=== PATIENT | female | born 1970 | race Caucasian/White ===

== ENCOUNTER 2016-07-11 18:05 | Emergency (ER) | payer BC ==
[2016-07-11 18:26] VITALS: BP 155/90
--- NOTE | 2016-07-11 18:44 | ED ---
Throat Pain/Nasal Congestion - HPI Summary HPI Summary: 46 F w/ PMH of HTN presents with left ear pain since yesterday. She denies any fever, chills, sinus pressure, or teeth pain. She denies ever getting an ear infection before. She denies recently swimming. She denies any dizziness or any change in hearing. - History of Current Complaint Chief Complaint: EDEarPain Time Seen by Provider: 07/11/16 18:32 - Allergies/Home Medications Allergies/Adverse Reactions: Allergies Allergy/AdvReac Type Severity Reaction Status Date / Time Amitriptyline Allergy Severe SOB, CHEST Verified 04/30/16 09:52 TIGHTNESS Codeine Allergy Unknown Hives/Diff. Verified 04/30/16 11:33 Breathing/I tching Clindamycin Allergy Hives/Diff. Verified 04/30/16 09:52 Breathing/I tching Erythromycin Allergy Hives/Diff. Verified 04/30/16 09:52 Breathing/I tching PMH/Surg Hx/FS Hx/Imm Hx Endocrine/Hematology History: Denies: Hx Diabetes, Hx Thyroid Disease Cardiovascular History: Reports: Hx Hypercholesterolemia, Hx Hypertension Respiratory History: Reports: Hx Sleep Apnea - current CPAP user Denies: Hx Asthma, Hx Chronic Obstructive Pulmonary Disease (COPD) GI History: Reports: Other GI Disorders - Obesity Denies: Hx Ulcer Sensory History: Reports: Other Sensory Impairments - Psoriasis Opthamlomology History: Reports: Other Sensory Impairments - Psoriasis Neurological History: Reports: Other Neuro Impairments/Disorders - Sleep disorder Psychiatric History: Reports: Hx Depression - Surgical History Surgery Procedure, Year, and Place: Cholecystectomy, PARTIAL HYSTERECTOMY Infectious Disease History: No Infectious Disease History: Denies: Hx Clostridium Difficile, Hx Hepatitis, Hx Human Immunodeficiency Virus (HIV), Hx of Known/Suspected MRSA, Hx Shingles, Hx Tuberculosis, Hx Known/ Suspected VRE, Hx Known/Suspected VRSA, History Other Infectious Disease, Traveled Outside the [place] in Last 30 Days - Family History Known Family History: Positive: None, Unknown - Social History Alcohol Use: None Substance Use Type: Reports: None Smoking Status (MU): Never Smoked Tobacco Review of Systems Negative: Fever Positive: Ear Ache - left ear. Negative: Sore Throat, Nasal Discharge Negative: Chest Pain Negative: Shortness Of Breath All Other Systems Reviewed And Are Negative: Yes Physical Exam Triage Information Reviewed: Yes Vital Signs On Initial Exam: Initial Vitals Temp Pulse Resp BP Pulse Ox 97.7 F 87 18 155/90 99 07/11/16 18:22 07/11/16 18:22 07/11/16 18:22 07/11/16 18:22 07/11/16 18:22 Vital Signs Reviewed: Yes Appearance: Positive: Well-Appearing Skin: Positive: Warm, Dry Head/Face: Positive: Normal Head/Face Inspection Eyes: Positive: Normal, EOMI, BAUTISTA, Conjunctiva Clear ENT: Positive: Pharynx normal, TMs normal, Other - edematous canal with tenderness on palpation of tragus Neck: Positive: Supple, Nontender, No Lymphadenopathy Respiratory/Lung Sounds: Positive: Clear to Auscultation, Breath Sounds Present Cardiovascular: Positive: Normal, RRR Diagnostics - Vital Signs Vital Signs Temp Pulse Resp BP Pulse Ox 07/11/16 18:22 97.7 F 87 18 155/90 99 - Laboratory Lab Statement: Any lab studies that have been ordered have been reviewed, and results considered in the medical decision making process. EENT Course/Dx - Course Course Of Treatment: 46 F presents with left ear pain for 2 days. On exam edematous canal with tenderness of tragus on palpation, TM intact and nonbulging , will treat for otitis externa, patient agrees with plan - Differential Diagnoses Differential Diagnoses: Otitis Externa, Otitis Media, Sinusitis - Diagnoses Provider Diagnoses: Otitis externa Discharge - Discharge Plan Condition: Good Disposition: HOME Prescriptions: Ciprofloxacin-Hydrocortisone [Cipro Hc] 3 drop LEFT EAR BID #1 bottle Patient Education Materials: Otitis Externa (ED) Referrals: Ashley Almaraz MD [Primary Care Provider] - Additional Instructions: Use 3 drops twice a day for 10 days Follow up with primary in a week to make sure resolving Return to ED if develop any new or worsening symptoms
== END 2016-07-11 19:07 | disposition home or self-care (01) ==
LOC: ED 18:05
DX: H60.92 Unspecified otitis externa, left ear (principal); H92.02 Otalgia, left ear; Z86.79 Personal history of other diseases of the circulatory system; Z88.8 Allergy status to other drugs, medicaments and biological substances
CPT/HCPCS: 99281

== ENCOUNTER 2016-08-03 15:31 | Emergency (ER) | payer BC ==
[2016-08-03 16:20] VITALS: BP 154/93
--- NOTE | 2016-08-03 16:57 | UC ---
Throat Pain/Nasal Gopi HPI - HPI Summary HPI Summary: complaint of nasal congestion and couging 2 days ago since begining of illness has had sore throat diarrhea, coughing so hard that she has vomited 2x feels chills and has had a fever for the last 2 days feels exhausted and frequernt muscle aches took some tylenol this morning with some relief - History of Current Complaint Chief Complaint: UCRespiratory Stated Complaint: COUGH Time Seen by Provider: 08/03/16 16:50 Hx Obtained From: Patient Hx Last Menstrual Period: HYSTERECTOMY - Allergies/Home Medications Allergies/Adverse Reactions: Allergies Allergy/AdvReac Type Severity Reaction Status Date / Time Amitriptyline Allergy Severe SOB, CHEST Verified 08/03/16 16:19 TIGHTNESS Codeine Allergy Unknown Hives/Diff. Verified 08/03/16 16:19 Breathing/I tching Clindamycin Allergy Hives/Diff. Verified 08/03/16 16:19 Breathing/I tching Erythromycin Allergy Hives/Diff. Verified 08/03/16 16:19 Breathing/I tching Home Medications: Home Medications Acetaminophen TAB* [Tylenol TAB*] 650 mg PO PRN 08/03/16 [History] PMH/Surg Hx/FS Hx/Imm Hx Previously Healthy: Yes Endocrine History Of: Denies: Diabetes, Thyroid Disease Cardiovascular History Of: Reports: Hypertension Denies: Cardiac Disorders Respiratory History Of: Denies: COPD, Asthma GI/ History Of: Denies: Ulcer Psychological History Of: Reports: Depression - Surgical History Surgical History: Yes Surgery Procedure, Year, and Place: Cholecystectomy, PARTIAL HYSTERECTOMY - Family History Known Family History: Positive: None, Unknown, Hypertension - parents Negative: Diabetes - Social History Occupation: Employed Full-time Lives: With Family Alcohol Use: None Substance Use Type: None Smoking Status (MU): Never Smoked Tobacco Review of Systems Constitutional: Fever, Chills Skin: Negative Eyes: Negative ENT: Sore Throat, Nasal Discharge Respiratory: Cough Cardiovascular: Negative Gastrointestinal: Diarrhea Genitourinary: Negative Motor: Negative Neurovascular: Negative Musculoskeletal: Myalgia Neurological: Negative Psychological: Negative All Other Systems Reviewed And Are Negative: Yes Physical Exam Triage Information Reviewed: Yes Appearance: No Pain Distress, Well-Nourished, Obese Vital Signs: Initial Vital Signs Temp 98.5 F 08/03/16 16:16 Pulse 81 08/03/16 16:16 Resp 20 08/03/16 16:16 BP 154/93 08/03/16 16:16 Pulse Ox 97 08/03/16 16:16 Vital Signs Reviewed: Yes Eyes: Positive: Conjunctiva Clear ENT: Positive: Pharyngeal erythema, Nasal congestion, Nasal drainage, TMs normal. Negative: TM bulging, TM red, Tonsillar swelling, Tonsillar exudate Neck: Positive: No Lymphadenopathy Respiratory: Positive: Lungs clear, Normal breath sounds, No respiratory distress Cardiovascular: Positive: RRR, No Murmur, Pulses Normal Abdomen Description: Positive: Nontender, Soft, Distended Bowel Sounds: Positive: Present Musculoskeletal: Positive: No Edema Neurological: Positive: Alert Psychological Exam: Normal Skin Exam: Normal Throat Pain/Nasal Course/Dx - Differential Dx/Diagnosis Differential Diagnosis/HQI/PQRI: Influenza, URI, Other - viral illness Provider Diagnoses: viral illness- influenza like Discharge - Discharge Plan Condition: Stable Disposition: HOME Prescriptions: Benzonatate CAP* [Tessalon CAP*] 100 mg PO TID PRN #30 cap PRN Reason: Cough Patient Education Materials: Influenza (ED) Forms: *Work Release Referrals: Ashley Almaraz MD [Primary Care Provider] - Additional Instructions: TREATING THE FLU (Influenza) What is the Flu? Influenza, or "flu," is an infection of the breathing tubes and lungs. Flu happens mostly in late fall, winter, or early spring. It is very easily spread from one person to another by coughing and sneezing. The flu affects people of all ages. Symptoms Might Include: Stuffed up or runny nose Cough which may be worse at night that lasts for one to two weeks Fever especially the first 2 days and which may go up and down Headache and muscle aches Mild sore throat Poor appetite Tiredness Influenza (Flu) Vaccine Much of the illness and caused by influenza can be prevented by annual flu vaccination. It is especially recommended for people who are at high risk. Those at higher risk include all people aged 65 years or older and people of any age with chronic diseases of the heart, lung or kidneys, diabetes, immunosuppression, or severe forms of anemia. Other high-risk groups are, women who will be more than 3 months during the flu season, and children. Treatment Recommendations: Take acetaminophen (Tylenol, etc.) for aches and fever. Do not ever give aspirin to children. Drink lots of fluids. Use a cool-mist humidifier night and day if it helps you. Keep room at a comfortable temperature for you. Do not overheat the room. Do not overdress. Do not smoke. Get as much rest as you can. Call Your Doctor or Return Here IF: You have a fever that lasts for more than three days. You have trouble breathing. You begin to cough up green, yellow, or red mucous. Your cough gets worse or you have chest pain with coughing or deep breathing. You start to have any other symptoms that worry you.
== END 2016-08-03 18:10 | disposition home or self-care (01) ==
LOC: UCEAST 15:31
DX: B34.9 Viral infection, unspecified (principal); J11.1 Influenza due to unidentified influenza virus with other respiratory manifestations; Z88.5 Allergy status to narcotic agent; Z88.1 Allergy status to other antibiotic agents
CPT/HCPCS: 87502; 99212; G0463

== ENCOUNTER 2016-09-21 09:36 | Emergency (ER) | payer SELFPAY ==
[2016-09-21 09:46] VITALS: BP 146/73
[2016-09-21] MEDS ORDERED: Ibuprofen TAB* 400 MG PO ONE (10:15)
--- NOTE | 2016-09-21 11:17 | RAD ---
INDICATION: Left wrist injury COMPARISON: None TECHNIQUE: AP, lateral, and oblique views were obtained. FINDINGS: There is no acute fracture about the wrist. The soft tissues are intact.. IMPRESSION: NO ACUTE FRACTURE.
--- NOTE | 2016-09-21 11:18 | RAD ---
INDICATION: Left hand pain COMPARISON: None TECHNIQUE: AP, lateral, and oblique views were obtained. FINDINGS: There is no acute fracture. There is a tiny, rounded and corticated ossific density about the base of the proximal phalanx of the third digit which could be related to remote injury. There is a suspected old, healed fifth metacarpal fracture. The articular relationships are maintained. The soft tissues are normal IMPRESSION: NO ACUTE BONY FINDINGS.
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
== END 2016-09-21 11:41 | disposition home or self-care (01) ==
LOC: ED 09:36
DX: S63.601A Unspecified sprain of right thumb, initial encounter (principal); S60.011A Contusion of right thumb without damage to nail, initial encounter; X50.9XXA Other and unspecified overexertion or strenuous movements or postures, initial encounter; Y93.9 Activity, unspecified; Y92.9 Unspecified place or not applicable
CPT/HCPCS: 99282; A9270-GY

== ENCOUNTER 2016-11-11 09:41 | Emergency (ER) | payer BC, OTHER ==
[2016-11-11 12:09] VITALS: BP 176/102
--- NOTE | 2016-11-22 17:55 | UC ---
UC General HPI - HPI Summary HPI Summary: Has been out of medications for blood pressure for 6 weeks, wishes to restart meds and find MD, some pedal edema, no chest pain or SOB - History of Current Complaint Chief Complaint: UCGeneralIllness Stated Complaint: HIGH BP,SWOLLEN FEET Time Seen by Provider: 11/11/16 11:24 Hx Obtained From: Patient Onset/Duration: Gradual Onset, Still Present Timing: Constant Pain Intensity: 4 Associated Signs & Symptoms: Positive: Edema. Negative: Chest Pain, SOB - Allergy/Home Medications Allergies/Adverse Reactions: Allergies Allergy/AdvReac Type Severity Reaction Status Date / Time Amitriptyline Allergy Severe SOB, CHEST Verified 11/11/16 10:01 TIGHTNESS Codeine Allergy Unknown Hives/Diff. Verified 11/11/16 10:01 Breathing/I tching Clindamycin Allergy Hives/Diff. Verified 11/11/16 10:01 Breathing/I tching Erythromycin Allergy Hives/Diff. Verified 11/11/16 10:01 Breathing/I tching PMH/Surg Hx/FS Hx/Imm Hx Previously Healthy: Yes Endocrine History: Diabetes Cardiovascular History: Hypertension - Surgical History Surgical History: Yes Surgery Procedure, Year, and Place: Cholecystectomy, PARTIAL HYSTERECTOMY, Lithotripy- left; ; Poly removed from uterus prior to hysterectomy - Family History Known Family History: Positive: None, Unknown, Hypertension - parents Negative: Diabetes - Social History Occupation: Employed Full-time Lives: With Family Alcohol Use: None Substance Use Type: None Smoking Status (MU): Never Smoked Tobacco Review of Systems Constitutional: Negative Skin: Negative Eyes: Negative ENT: Negative Respiratory: Negative Cardiovascular: Negative Gastrointestinal: Negative Genitourinary: Negative Motor: Negative Neurovascular: Negative Musculoskeletal: Edema - bilateral pedal edema Neurological: Negative Psychological: Negative All Other Systems Reviewed And Are Negative: Yes Physical Exam Triage Information Reviewed: Yes Appearance: Well-Appearing, No Pain Distress, Well-Nourished Vital Signs: Initial Vital Signs Temp 98.5 F 11/11/16 09:54 Pulse 75 11/11/16 09:54 Resp 18 11/11/16 09:54 BP 179/91 11/11/16 09:54 Pulse Ox 96 11/11/16 09:54 Vital Signs Reviewed: Yes Eye Exam: Normal Eyes: Positive: Conjunctiva Clear ENT Exam: Normal ENT: Positive: Normal ENT inspection, Hearing grossly normal. Negative: Nasal congestion, Nasal drainage, Trismus, Muffled/hoarse voice Dental Exam: Normal Neck exam: Normal Neck: Positive: Supple, Nontender, No Lymphadenopathy Respiratory Exam: Normal Respiratory: Positive: Chest non-tender, Lungs clear, Normal breath sounds, No respiratory distress, No accessory muscle use Cardiovascular Exam: Normal Cardiovascular: Positive: RRR, No Murmur, Pulses Normal, Brisk Capillary Refill Musculoskeletal Exam: Normal Musculoskeletal: Positive: Strength Intact, ROM Intact, No Edema Neurological Exam: Normal Neurological: Positive: Alert, Muscle Tone Normal Psychological Exam: Normal Skin Exam: Normal Course/Dx - Course Course Of Treatment: REstart medication, follow with PCP EBCK - Differential Dx - Multi-Symptom Differential Diagnoses: Metabolic Abnormality, Other - Hypertension Provider Diagnoses: Hypertension in poor control non adherant with treatment Discharge - Discharge Plan Condition: Stable Disposition: HOME Prescriptions: Lisinopril TAB* [Prinivil TAB 5 MG*] 5 mg PO DAILY #14 Metformin HCl [Glucophage] 1,000 mg PO BID #28 tab Potassium Chloride [Klor-Con Sprinkle] 1 cap PO DAILY #14 Triamterene/HCTZ 37.5-25 MG* [Dyazide CAP*] 1 cap PO DAILY #14 cap Patient Education Materials: Plantar Fasciitis Exercises (GEN), Plantar Fasciitis (ED), DASH Eating Plan (ED), Hypertension (ED) Referrals: [facility] [Provider Group] - 11/21/16 Additional Instructions: Eucerin on feet at bed time with soaks can help the dry skin
== END 2016-11-11 12:00 | disposition home or self-care (01) ==
LOC: UCEAST 09:41
DX: I10 Essential (primary) hypertension (principal); R60.0 Localized edema; E11.9 Type 2 diabetes mellitus without complications; Z88.1 Allergy status to other antibiotic agents; Z88.5 Allergy status to narcotic agent
CPT/HCPCS: 99212; G0463

== ENCOUNTER 2017-05-05 17:20 | Emergency (ER) | payer BC ==
[2017-05-05 17:35] VITALS: BP 142/69
--- NOTE | 2017-05-05 18:08 | UC ---
Respiratory Complaint HPI - HPI Summary HPI Summary: cough for 2 days to the point of vomiting no fevers worse at night - History of Current Complaint Chief Complaint: UCRespiratory Stated Complaint: COUGH,VOMITING,DIFFICULTY BREATHING Time Seen by Provider: 05/05/17 18:07 Hx Obtained From: Patient Hx Last Menstrual Period: HYSTERECTOMY ?: No Onset/Duration: Sudden Onset, Lasting Days - 2, Still Present Timing: Constant Severity Initially: Moderate Severity Currently: Moderate Character: Cough: Productive Aggravating Factors: Recumbent Position Alleviating Factors: Nothing Associated Signs And Symptoms: Positive: URI - Allergies/Home Medications Allergies/Adverse Reactions: Allergies Allergy/AdvReac Type Severity Reaction Status Date / Time Amitriptyline Allergy Severe SOB, CHEST Verified 05/05/17 17:36 TIGHTNESS Codeine Allergy Unknown Hives/Diff. Verified 05/05/17 17:36 Breathing/I tching Clindamycin Allergy Hives/Diff. Verified 05/05/17 17:36 Breathing/I tching Erythromycin Allergy Hives/Diff. 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 Lives: With Family Alcohol Use: None Substance Use Type: None Smoking Status (MU): Never Smoked Tobacco Review of Systems Constitutional: Negative Skin: Negative Eyes: Negative ENT: Negative Respiratory: Cough Cardiovascular: Negative Gastrointestinal: Negative Genitourinary: Negative Motor: Negative Neurovascular: Negative Musculoskeletal: Negative Neurological: Negative Psychological: Negative Is Patient Immunocompromised?: Yes All Other Systems Reviewed And Are Negative: Yes Physical Exam Triage Information Reviewed: Yes Appearance: Well-Appearing, No Pain Distress, Obese Vital Signs: Initial Vital Signs Temp 98.6 F 05/05/17 17:33 Pulse 89 05/05/17 17:33 Resp 18 05/05/17 17:33 BP 142/69 05/05/17 17:33 Pulse Ox 99 05/05/17 17:33 Vital Signs Reviewed: Yes Eye Exam: Normal Eyes: Positive: Conjunctiva Clear ENT Exam: Normal ENT: Positive: Normal ENT inspection, Hearing grossly normal, Pharynx normal, Nasal drainage, TMs normal, Uvula midline. Negative: Nasal congestion, TM bulging, Trismus, Muffled voice, Hoarse voice, Dental tenderness, Sinus tenderness Dental Exam: Normal Neck exam: Normal Neck: Positive: Supple, Nontender, No Lymphadenopathy Respiratory Exam: Normal Respiratory: Positive: Chest non-tender, Lungs clear, Normal breath sounds, No respiratory distress, No accessory muscle use Cardiovascular Exam: Normal Cardiovascular: Positive: RRR, No Murmur, Pulses Normal Musculoskeletal Exam: Normal Musculoskeletal: Positive: Strength Intact, ROM Intact, No Edema Neurological Exam: Normal Neurological: Positive: Alert Psychological Exam: Normal Skin Exam: Normal UC Diagnostic Evaluation - Laboratory O2 Sat by Pulse Oximetry: 99 Re-Evaluation - Re-Evaluation First Eval Change: Improved - feels much better Respiratory Course/Dx - Course Course Of Treatment: tessalon, zithromax,albuterol, increase fluids rest follow with pcp - Differential Dx/Diagnosis Provider Diagnoses: highblood pressure in poor control, bronchitis Discharge - Discharge Plan Condition: Stable Disposition: HOME Prescriptions: Albuterol HFA INHALER* [Ventolin HFA Inhaler*] 2 puff INH Q4H PRN #1 mdi PRN Reason: cough/sob Azithromycin TAB* [Zithromax TAB (Z-TOM) 250 mg #6 tabs] 1 tab PO DAILY #4 tab Benzonatate CAP* [Tessalon 100 MG CAP*] 100 mg PO TID PRN #30 cap PRN Reason: cough Patient Education Materials: Acute Bronchitis (ED), Hypertension (ED), Bronchospasm (ED), How to Use a Metered-Dose Inhaler and a Spacer (ED) Forms: *School Release Referrals: Narcisa Joseph NP [Primary Care Provider] - 2 Weeks
[2017-05-05] MEDS ORDERED: Ipratropium 0.5MG/2.5ML NEB* 0.5 MG/2.5 ML NEB.SOLN INH ONE (18:13)
[2017-05-05] MEDS ORDERED: Albuterol 2.5 MG/3 ML NEB.SOL* (0.083%) INH ONE (18:13)
[2017-05-05] MEDS ORDERED: Azithromycin TAB* 250 MG PO ONE (18:15)
[2017-05-05] MEDS ORDERED: Albuterol HFA INHALER* 8 gm MDI INH ONE (18:52)
[2017-05-05] MEDS ORDERED: Benzonatate CAP* 100 MG PO ONE (18:53)
== END 2017-05-05 19:19 | disposition home or self-care (01) ==
LOC: UCEAST 17:20
DX: J40 Bronchitis, not specified as acute or chronic (principal); I10 Essential (primary) hypertension; L40.9 Psoriasis, unspecified; E66.9 Obesity, unspecified; Z90.49 Acquired absence of other specified parts of digestive tract; Z90.711 Acquired absence of uterus with remaining cervical stump; Z88.1 Allergy status to other antibiotic agents; Z88.5 Allergy status to narcotic agent
CPT/HCPCS: 99213; A9270-GY; G0463; J7644

== ENCOUNTER 2017-06-27 08:37 | Day surgery (SDC) | payer OTHER ==
[~2017-06-27 08:37] MED LIST: Buffered Lidocaine 0.9% SYRIN* 5 ML/SYR SYRINGE INTRADERM ONE; Dexamethasone IV* 4 MG/ML 1 ML (4 MG) IV SLOW PU ONE; Famotidine IV* 10 MG/ML 2 ML (20 mg) IV ONE; Levalbuterol 0.63MG/3ML NEB* UNIT OF USE INH ONE
[2017-06-27] MEDS ORDERED: ceFAZolin 1 GM VIAL(*) ONE (08:57)
[2017-06-27] MEDS ORDERED: Levalbuterol 0.63MG/3ML NEB* UNIT OF USE INH ONE (08:58)
[2017-06-27] MEDS ORDERED: Dexamethasone IV* 4 MG/ML 1 ML (4 MG) ONE (08:58)
[2017-06-27] MEDS ORDERED: ceFAZolin 2 GM PREMIX (*) 2 GM/50 ML BAG IVPB ONE (08:58)
[2017-06-27] MEDS ORDERED: Famotidine IV* 10 MG/ML 2 ML (20 mg) ONE (08:58)
[2017-06-27] MEDS ORDERED: Bupivacaine 0.25% SDV* 30 ML ONE (10:42)
[2017-06-27] MEDS ORDERED: Betamethasone INJ* 6 MG/ML 5 ML VIAL (30 MG) ONE (11:04)
[2017-06-27] MEDS ORDERED: Lidocaine 1% MPF* 2 ML VIAL ONE (11:05)
[2017-06-27] MEDS ORDERED: Midazolam* 1 MG/ML 2 ML VIAL (2 MG) ONE (11:10)
[2017-06-27] MEDS ORDERED: KETAMINE HCL* 50 MG/ML 10 ML VIAL ONE (11:10)
[2017-06-27] MEDS ORDERED: Ketorolac INJ* 30 MG/ML 1 ML VIAL ONE (12:19)
[2017-06-27] MEDS ORDERED: Ondansetron INJ* 2 MG/ML VIAL ONE (12:19)
[2017-06-27] MEDS ORDERED: Propofol* 10 MG/ML 20 ML BTL IV PUSH ONE (12:19)
[2017-06-27] MEDS ORDERED: Lidocaine 2% PF * 5 ML VIAL ONE (12:19)
[2017-06-27] MEDS ORDERED: DiMENhydriNATE IV* 50 MG/ML VIAL IV PUSH PRN (12:27)
[2017-06-27] MEDS ORDERED: Naloxone* 0.4 MG/ML 1 ML VIAL IV PRN (12:27)
[2017-06-27] MEDS ORDERED: HYDROmorphone INJ* 1 MG/ML CARPUJECT SYRINGE IV PRN (12:27)
[2017-06-27] MEDS ORDERED: fentaNYL* 50 MCG/ML 2 ML VIAL (100 MCG VIAL) IV PRN (12:27)
[2017-06-27] MEDS ORDERED: Acetaminophen IV 1GM/100ML * 1,000 MG/100 ML VIAL IVPB PRN (12:50)
[2017-06-27] MEDS ORDERED: fentaNYL* 50 MCG/ML 2 ML VIAL (100 MCG VIAL) ONE ×2 (13:08→14:00)
[2017-06-27] MEDS ORDERED: HYDROcodone/ACETAMIN 5-325 MG* 1 TAB ONE (14:34)
[2017-06-27] MEDS ORDERED: DiMENhydriNATE IV* 50 MG/ML VIAL ONE (14:45)
[2017-06-27 15:14] VITALS: BP 144/59
--- NOTE | 2017-06-28 04:50 | OP ---
DATE OF OPERATION: 06/27/17 - [facility] DATE OF : 66 SURGEON: Ender Campbell MD. VEGETABLE I FARMWORKER: JULISA Plata. An faculty i on call medical assistant was needed for the entirety of the procedure to aide in positioning of the arm, retraction, passing instruments in and out of the joint as well as instrumentation. ANESTHESIOLOGIST: Dr. Luis. ANESTHESIA: General. 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 POST-OP DIAGNOSES: 1. Left wrist ulnar impaction syndrome with delamination of the ulnar-sided cartilage of the proximal lunate as well as central TFCC perforation and full- thickness cartilage loss of the distal ulna. 2. Stage 3 scapholunate instability. 3. Abundant left wrist synovitis. 4. Loose body left wrist. PROCEDURES PERFORMED: 1. Arthroscopic left wrist TFCC and general debridement including debridement of the chondral flap. 2. Arthroscopic loose body removal. 3. Microfracture of full-thickness chondral defect, proximal ulnar lunate. 4. Arthroscopic partial synovectomy, left wrist including the radiocarpal and midcarpal joints. 5. Left ulnar shortening osteotomy. INDICATIONS: Manasa has had pain for quite some time, I have been following her for months. We have been watching along and I thought that she probably had some scapholunate instability, but really her symptoms are more suggestive of significant ulnar impaction syndrome. She did have a central TFCC perforation seen on her MRI. She had responded adequately to nonoperative treatment, so I tried to talk her about doing an arthroscopy, debriding the wrist, performing the synovectomy, getting a firm diagnosis as to the extent of the ulnar impaction syndrome. If I saw significant ulnar impaction syndrome, I would go ahead and shorten the ulna. Additionally, I would get a sense for how much scapholunate instability there was. ESTIMATED BLOOD LOSS: 5 mL. COMPLICATIONS: None. FINDINGS: See above and below. DESCRIPTION OF PROCEDURE: Manasa was seen in the preoperative holding area. The correct side, site, and procedure were identified. We came back to the operating room and the arm was prepped and draped in the usual fashion. A time- out was performed. The arm was placed in the Acumed traction tower and appropriate traction was placed. The arm was exsanguinated with the Esmarch and the tourniquet inflated to 275 mmHg. I developed a 3/4 portal in standard fashion using an 11 blade and mosquito and then the blunt trocar. Camera was introduced there. A diagnostic arthroscopy was begun. It was immediately apparent that there was abundant dorsal synovitis. There was a loose body in the joint. I went ahead and developed a 6R portal in similar fashion. The 2.0 shaver was introduced through the 6R portal and a significant synovectomy was performed. Once I had performed a synovectomy, the radiocarpal joint, the ulnar carpal joints, I went ahead and diagnosed a significant central TFCC perforation. I went ahead and debrided this back with a shaver and then with the biters as well as the radiofrequency ablator. The distal ulna was readily apparent just under the TFCC perforation. The probe was used and it was obvious that there was no cartilage really remaining on the distal ulna in that area. After the synovectomy was performed, I went ahead and introduced a grasper into the joint through the 6R portal. I was able to retrieve the loose body and this was excised. At this point, there was a large flap hanging down from the proximal ulnar portion of the lunate. This was debrided back with the biter and then the shaver and then the radiofrequency ablator. It was a full thickness delamination of the cartilage off the proximal ulnar lunate. I debrided this all the way back to clean healthy edges. At this point, I decided it was a big enough segment that I wanted to see if I could induce a little fibrocartilage formation. I took a K-wire and placed it on to the defect, as the defect is more on the dorsal aspect, and I placed one and then a second hole into the area. This was adequate and it really was not big enough to take any more microfracture and so at this point I went ahead and put the shaver in one more time and fully debrided all the loose tissue and sucked up any loose fragments. Everything was looking clean and stable and so I went to the midcarpal portals. I created a radial and then ulnar midcarpal portal in standard fashion. The camera was introduced into the radial midcarpal portal. There was extensive synovitis here. I brought the shaver in and debrided back all of the synovitis. I then introduced a probe into the ulnar midcarpal portal. Ultimately, there was stage 3 Juan Carlos instability at the scapholunate interval , the lunotriquetral joint looked okay. I could not drive the camera through, but there was definitely stage 3 instability. At this point, I decided there was nothing more that I could do arthroscopically and so we withdrew all the arthroscopic equipment and this was handed off, the arm was taken out of the traction tower, tourniquet was deflated while we did this, and we prepared for the ulnar shortening osteotomy. I then re-exsanguinated the arm and the Esmarch was inflated to 300 mmHg, as we have been having a little bit of venous bleeding. Longitudinal incision was made over the subcutaneous border overlying the ulna, dissection was carried down. The interval between the ECU and the FCU was opened up and subperiosteal dissection was done on the dorsal aspect of the ulna. The TriMed plate was brought in and clamped into place. Once I had the correct position, I went ahead and placed the first screw all the way at the end of the oblong hole. The 3 screws on the opposite side of the plate were then put in. I then brought in my guide for my lag screw and then 2 pins were placed through the guide. I a 4-mm cutting block and that was placed and the first osteotomy was made with the sagittal saw. I then brought in cutting guide B and that was placed and the second osteotomy was performed. The wafer of ulna was excised. All the soft tissue was removed. I had previously placed the pin for the compression clamp. I put the compression clamp back in place and the osteotomy was closed down, excellent compression was achieved. I went ahead and placed the lag screw in standard fashion. This was an 18-mm lag screw. Once I had the lag screw fully tightened, there was excellent compression across the osteotomy. The oblong screw was again retightened. The 2 screws proximal to the oblong screw were then placed. Fluoroscopic imaging revealed excellent apposition of the osteotomy and the appropriate screw length. The wrist joint showed that the ulna was nicely shortened, the elbow was nicely stable as well. We irrigated out the wound. The fascia was closed with 3-0 Vicryl suture. Subcutaneous tissue was reapproximated with 3-0 Vicryl suture. Skin was closed with 4-0 Monocryl including both the ulnar shortening osteotomy incision and the arthroscopy incisions. Steri-Strips were placed. Everything was infiltrated with 0.25% plain Marcaine. The wounds were dressed with 4x4s, sterile Webril and then a sugar-tong splint was placed. Tourniquet was deflated and the hand pinked up immediately. She was woken up and taken to the recovery room in stable condition. [id number]/CPS #: [id number] BELIA
--- NOTE | 2017-07-01 11:09 | RAD ---
INDICATION: Left wrist surgery ulnar shortening. COMPARISON: Comparison is made with a prior x-ray study of the left wrist from February 15, 2017. TECHNIQUE: 22 seconds of intermittent fluoroscopic guidance were provided and 6 spot films of the left wrist and forearm were obtained in the operating room. FINDINGS: The films demonstrate an ulnar osteotomy transfixed with a surgical plate and multiple surgical screws. The bones are in normal alignment. IMPRESSION: INTRAOPERATIVE CONTROL FILMS. CPT II Codes: 6045F
== END 2017-06-27 15:28 | disposition home or self-care (01) ==
LOC: OREAST 08:37
PROVIDERS: ATTEND Orthopaedic Surgery Hand Surgery
DX: S63.592D Other specified sprain of left wrist, subsequent encounter (principal); M25.332 Other instability, left wrist; M18.12 Unilateral primary osteoarthritis of first carpometacarpal joint, left hand; M65.832 Other synovitis and tenosynovitis, left forearm; M24.032 Loose body in left wrist; M65.352 Trigger finger, left little finger; Z68.43 Body mass index [BMI] 50.0-59.9, adult; G47.33 Obstructive sleep apnea (adult) (pediatric); I10 Essential (primary) hypertension; J45.909 Unspecified asthma, uncomplicated; X58.XXXD Exposure to other specified factors, subsequent encounter; Y92.89 Other specified places as the place of occurrence of the external cause
CPT/HCPCS: 76000; 88304; 88311; C1713; C1776; J0690; J0702; J1100; J1240; J1885; J2250; J2405; J2704; J3010; J7614

== ENCOUNTER 2017-08-14 13:31 | Emergency (ER) | payer BC, OTHER ==
--- OUTSIDE RECORDS SUMMARY | 2017-08-14 14:06 | XMS REPORT ---
:1970 External Reference #:[id number] [facility] Funding Profiles Address [address] [address] Phone [phone] Care Team Providers Name Role Phone Bahman Castillo MD Primary Care Physician Unavailable Payers Type Date Identification Numbers Payment Provider Subscriber Commercial Effective: Policy Number: [id number] [employer] Manasa Garcia 2016 PayID: [id number] [address] [address] [place] [address] Workers Compensation Effective: 2016 Policy Number: TSTWC Manasa Garcia [id number] Onset: 2016 Group Number: [id number] [address] Group Name: [id number] [place] [address] PayID: [id number] Date Description Provider Status Onset: 06/28/2011 Obstructive sleep apnea Lucy Muniz DNP, RN, Active syndrome 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 Family History Date Family Member(s) Problem(s) Comments General maternal grandmother cancer,maternal grandfather heart disease Father Heart Disease Mother Cancer Siblings 1 sister,2 brothers alive and well Social History Type Date Description Comments Marital Status Lives With Family Occupation [employer] ETOH Use Denies alcohol use Smoking Patient has never smoked Recreational Drug Use Denies Drug Use Daily Caffeine hot tea 1cup on the weekend, 1 soda a day Exercise Type/Frequency Exercises sporadically Allergies, Adverse Reactions, Alerts Date Description Reaction Status Severity Comments 10/15/2014 Amitriptyline active 09/06/2015 Clindamycin active 09/24/2016 Erythromycin active 06/12/2017 Codeine active Medications Medication Date Status Form Strength Qnty SIG Indications Ordering Provider Hydrocodone-Acetamino 06/27 Active Tablets 5-325mg 30tab take 1 Ender s tab by baljit Campbell MD every 4-6 hours as needed for pain. Albuterol Sulfate 09/04 Active Powder puff every 6 hours as needed Lisinopril 09/04 Active Tablets 5mg 1 by mouth every day Cosentyx 09/04 Active Soln 150mg/ml inject 2 Prefill syringes Syringe 150ml each every week Hydrochlorothiazide Active 25mg 1 tab by Unknown / mouth once a day Potassium 09/04 Hx 1000Meq 1 tab twice a - day 08/13 Metformin HCL 09/04 Hx Tablets 500mg 1 by mouth - twice a Ferrous Fumarate 09/04 Hx Tablets 324mg 1 tab by mouth 2x - per day 08/13 Vitamin B-12 09/04 Hx Tablets 1000mcg 1 by mouth - every day 07/13 Stelara Hx Unknown / - 09/04 Medications Administered in Office Medication Date Status Form Strength Qnty SIG Indications Ordering Provider Celestone 3 mg Administered Injection Ender and 3mg 017 MD Adrian Influenza Administered Injection Unknown Virus Vaccine 014 Vital Signs Date Vital Result Comment 08/09/2017 Height 64 inches 5'4" Weight 292.00 lb per pt Heart Rate 76 /min reg Respiratory Rate 16 /min Pain Level 8 left wrist, 6/10 left thumb BMI (Body Mass Index) 50.1 kg/m2 07/17/2017 Height 64 inches 5'4" Weight 295.00 lb Heart Rate 88 /min Respiratory Rate 20 /min BMI (Body Mass Index) 50.6 kg/m2 07/03/2017 Height 64 inches 5'4" BP Systolic 136 mmHg BP Diastolic 80 mmHg Respiratory Rate 18 /min Body Temperature 98.9 F Pain Level 10 06/12/2017 Height 64 inches 5'4" Weight 295.00 lb Heart Rate 84 /min BP Systolic 138 mmHg BP Diastolic 82 mmHg Respiratory Rate 18 /min Body Temperature 98.9 F Pain Level 3 BMI (Body Mass Index) 50.6 kg/m2 04/26/2017 Height 64 inches 5'4" Weight 266.00 lb Respiratory Rate 16 /min Body Temperature 98.0 F Pain Level 2 BMI (Body Mass Index) 45.7 kg/m2 03/29/2017 Height 64 inches 5'4" Weight 266.00 lb Heart Rate 72 /min Respiratory Rate 18 /min Body Temperature 98.3 F Pain Level 4 BMI (Body Mass Index) 45.7 kg/m2 02/15/2017 Height 64 inches 5'4" Weight 265.00 lb Heart Rate 72 /min Respiratory Rate 17 /min Body Temperature 98.4 F Pain Level 5 BMI (Body Mass Index) 45.5 kg/m2 01/18/2017 Height 64 inches 5'4" Weight 265.00 lb Heart Rate 77 /min Respiratory Rate 16 /min Pain Level 6 BMI (Body Mass Index) 45.5 kg/m2 12/28/2016 Height 64 inches 5'4" Weight 265.00 lb Heart Rate 95 /min Respiratory Rate 19 /min Body Temperature 99.2 F Pain Level 5 BMI (Body Mass Index) 45.5 kg/m2 12/26/2016 Height 64 inches 5'4" Weight 265.00 lb Heart Rate 88 /min BP Systolic Sitting 134 mmHg BP Diastolic Sitting 84 mmHg Respiratory Rate 16 /min Body Temperature 98.6 F Pain Level 4 BMI (Body Mass Index) 45.5 kg/m2 11/29/2016 Height 64 inches 5'4" Weight 266.00 lb Heart Rate 80 /min Respiratory Rate 16 /min Body Temperature 99.1 F Pain Level 5 BMI (Body Mass Index) 45.7 kg/m2 11/12/2016 Height 64 inches 5'4" Weight 266.00 lb Heart Rate 88 /min BP Systolic 140 mmHg BP Diastolic 86 mmHg Respiratory Rate 18 /min Body Temperature 98.8 F Pain Level 5 BMI (Body Mass Index) 45.7 kg/m2 10/17/2016 Height 64 inches 5'4" Weight 266.00 lb Heart Rate 80 /min BP Systolic 179 mmHg BP Diastolic 89 mmHg Body Temperature 98.9 F Pain Level 5 BMI (Body Mass Index) 45.7 kg/m2 09/24/2016 Height 64 inches 5'4" Weight 260.00 lb Heart Rate 86 /min BP Systolic 142 mmHg BP Diastolic 82 mmHg Respiratory Rate 16 /min Body Temperature 97.8 F Pain Level 4 BMI (Body Mass Index) 44.6 kg/m2 09/06/2015 Height 64 inches 5'4" Weight 271.50 lb Heart Rate 92 /min BP Systolic 134 mmHg BP Diastolic 80 mmHg Respiratory Rate 14 /min O2 % BldC Oximetry 97 % BMI (Body Mass Index) 46.6 kg/m2 10/15/2014 Height 64 inches 5'4" Weight 271.00 lb Heart Rate 79 /min BP Systolic Sitting 130 mmHg BP Diastolic Sitting 82 mmHg Body Temperature 98.3 F O2 % BldC Oximetry 97 % BMI (Body Mass Index) 46.5 kg/m2 Neck Circumference in inches 16.5 Results Test Date Test Result H/L Range Note Laboratory test 06/27/2017 Surgical Pathology SEE RESULT BELOW 1, 2 finding 1 [id number] 2 SEE RESULT BELOW Name: MANASA GARCIA : [address]: Ender Campbell MD Acct: [id number] Unit: [id number] AGE: 47 Location: [facility] Re06/27/17 SEX: F Status: JANINA CAMPBELL SPEC: [id number] LYLA: 06/27/17-1350 [facility] DR: Ender Campbell MD REQ: [id number] RECD: 06/27/17 STATUS: SOUT _ ORDERED: Isabella, LEVEL 3 COMMENTS: [id number] FINAL DIAGNOSIS Left ulna, excision: -- Benign bone with skeletal muscle fragments. PRE-OPERATIVE DIAGNOSIS Left wrist pain GROSS DESCRIPTION The specimen is received in formalin labeled, Portion of Left Ulna, and consists of a 1.5 by up to 1.3 x 0.1 cm pardo-white ovoid bone fragment with a central 0.5 x 0.4 cm defect. The specimen is serially sectioned and entirely submitted in one cassette following decalcification. MICROSCOPIC DESCRIPTION Signed (signature on file) Shilpa Ornelas MD 04/10 1025 END OF REPORT * ML=Testing performed at Main Lab DEPARTMENT OF PATHOLOGY, [address] [place] [address] Shantanu Sandy M.D. Director [facility] # [id number] Procedures Date CPT Code Description Status 06/27/2017 87213 Arthroscopy,Wrist,Diagnostic,Synovectomy,Complete Completed 06/27/2017 63905 Arthroscopy,Wrist,Diagnostic,Synovectomy,Complete Completed 06/27/2017 00479 Unlisted Procedure, Forearm/Wrist Completed 06/27/2017 49300 Unlisted Procedure, Forearm/Wrist Completed 06/27/2017 07643 Osteoplasty Shorten Radius Or Ulna Completed 06/27/2017 58509 Osteoplasty Shorten Radius Or Ulna Completed 03/29/2017 14866 Inject/Drain Joint/Bursa Small Completed 11/29/2016 74121 Short Arm Cast Application Completed Encounters Type Date Location Provider CPT E/M Dx Office Visit 04/26/2017 [place] [address] S63.592D 10:00a Of C.M.AGermain M18.12 Office Visit 03/29/2017 10:00a [facility] [address] M18.12 C.M.Zach S63.592D Office Visit 02/15/2017 8:15a [place] [address] S63.592D Of C.M.A. Office Visit 01/18/2017 9:00a [place] [address] M25.531 Of C.M.AGermain Office Visit 12/28/2016 2:30p [place] [address] M25.531 Of C.M.AGermain M25.531 Office Visit 12/26/2016 8:15a [facility] Ingrid Funk 17074 S63.642D Of C.Umair.Zach Rouse Office Visit 11/29/2016 10:15a [facility] Ingrid Funk 81511 S63.642D Of C.Umair.Zach Rouse Office Visit 11/12/2016 9:30a [facility] Ingrid Funk 23261 S63.642D Of C.Umair.Zach Rouse Office Visit 10/17/2016 10:00a [facility] Shayla Braun 98200 S63.641D Of C.Pricilla RPA-C S63.642D Office Visit 09/24/2016 9:30a [facility] Ingrid Funk, 49392 S63.642A Of C.Pricilla Rouse S63.642A Office Visit 09/06/2015 8:00a [facility] Lucy Muniz, 42150 G47.33 Services Of Kimo BRANTLEY RN, RIVER PILOTREGINE E66.01 Office Visit 10/15/2014 1:00p [facility] Sleep Lucy Muniz, 17541 327.23 Services Of Kimo BRANTLEY RN, JAVIER-REGINE Plan of Care Future Appointment(s):09/20/2017 10:15 am - Ender Campbell MD at [facility] Of Norma.Pricilla
--- OUTSIDE RECORDS SUMMARY | 2017-08-14 14:06 | XMS REPORT ---
:1970 External Reference #:[id number] Author Organization [facility] [employer] Address [address] [address] Phone [phone] Care Team Providers Name Role Phone Bahman Castillo MD Primary Care Physician Unavailable Payers Type Date Identification Numbers Payment Provider Subscriber Commercial Effective: Policy Number: [id number] [employer] Manasa Garcia 2016 PayID: [id number] [address] [address] [place] [address] Workers Compensation Effective: 2016 Policy Number: TSTWC Manasa Garcia [id number] Onset: 2016 Group Number: [id number] [address] Group Name: [id number] [place] [address] PayID: [id number] Date Description Provider Status Onset: 06/28/2011 Obstructive sleep apnea Lucy Muniz DNP, RN, Active syndrome 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 Family History Date Family Member(s) Problem(s) Comments General maternal grandmother cancer,maternal grandfather heart disease Father Heart Disease Mother Cancer Siblings 1 sister,2 brothers alive and well Social History Type Date Description Comments Marital Status Lives With Family Occupation [employer] ETOH Use Denies alcohol use Smoking Patient [...] 014 Vital Signs Date Vital Result Comment 07/17/2017 Height 64 inches 5'4" Weight 295.00 [...] SEE RESULT BELOW 1, 2 finding 1 [id number] 2 SEE RESULT BELOW Name: GEMINIMANASA : [address]: Ender Campbell MD Acct: [id number] Unit: [id number] AGE: 47 Location: [facility] Re06/27/17 SEX: F Status: [place] [facility]: [id number] LYLA: 06/27/17-135[facility] DR: Ender Campbell MD REQ: [id number] RECD: 06/27/17 STATUS: SOUT _ ORDERED: Decal, LEVEL 3 COMMENTS: [id number] FINAL DIAGNOSIS Left ulna, excision: -- Benign [...] performed at Main Lab DEPARTMENT OF PATHOLOGY, [address] [place] [address] Shantanu Sandy M.D. Director [facility] # [id number] Procedures Date CPT Code Description Status 06/27/2017 05470 Arthroscopy,Unlisted Procedure Completed 06/27/2017 10573 Arthroscopy,Unlisted Procedure Completed 06/27/2017 97047 Arthroscopy Wrist Excision/Repair Triang Completed Fibrocartilage/Debride 06/27/2017 86344 Arthroscopy Wrist Excision/Repair Triang Completed Fibrocartilage/Debride 06/27/2017 44196 Arthroscopy,Wrist,Diagnostic,Synovectomy,Complete Completed 06/27/2017 71687 Arthroscopy,Wrist,Diagnostic,Synovectomy,Complete Completed 06/27/2017 12074 Osteoplasty Shorten Radius Or Ulna Completed 06/27/2017 69698 Osteoplasty Shorten Radius Or Ulna Completed 03/29/2017 15957 Inject/Drain Joint/Bursa Small Completed 11/29/2016 73364 Short Arm Cast Application Completed Encounters Type Date Location Provider CPT E/M Dx Office Visit 04/26/2017 [place] [address] S63.592D 10:00a Of Young M18.12 Office Visit 03/29/2017 10:00a [place] [address] M18.12 Norma.Pricilla S63.592D Office Visit 02/15/2017 8:15a [place] [address] S63.592D Of C.M.AGermain Office Visit 01/18/2017 9:00a [place] [address] M25.531 Of C.M.AGermain Office Visit 12/28/2016 2:30p [place] [address] M25.531 Of C.M.AGermain M25.531 Office Visit 12/26/2016 8:15a [facility] Services Ingrid Funk 29388 S63.642D Of C.MXiomy MAgatha Office Visit 11/29/2016 10:15a [facility] Ingrid Funk 61984 S63.642D Of C.M.Zach Rouse Office Visit 11/12/2016 9:30a [facility] Ingrid Funk 69650 S63.642D Of C.M.Zach Rouse Office Visit 10/17/2016 10:00a Orthopedic Services Shayla Braun 26620 S63.641D Of C.Pricilla RPA-C S63.642D Office Visit 09/24/2016 9:30a Orthopedic Services Ingrid Funk, 5300[address] S63.642A Of C.Pricilla Rouse S63.642A Office Visit 09/06/2015 8:00a Pulmonology And Sleep Lucy Muniz, 38185 G47.33 Services Of Kimo BRANTLEY RN, PUBLIC RELATIONS PLAYER-REGINE E66.01 Office Visit 10/15/2014 1:00p Pulmonology And Sleep Lucy Muniz, 54435 327.23 Services Of Kimo BRANTLEY RN, JAVIER-REGINE Plan of Care Future Appointment(s):08/09/2017 11:30 am - Ender Campbell MD at [facility]opedic Services Of Norma.Pricilla
[2017-08-14] MEDS ORDERED: NS 0.9% 1000 ML* 1,000 ML IV ONE (18:52)
[2017-08-14] MEDS ORDERED: Morphine INJ* 2 MG/ML 1 ML CARPUJECT IV ONE (18:55)
[2017-08-14] MEDS ORDERED: Ketorolac INJ* 30 MG/ML 1 ML VIAL IV PUSH ONE (18:55)
[2017-08-14] MEDS ORDERED: Ondansetron INJ* 2 MG/ML VIAL IV ONE (18:56)
[2017-08-14 19:24] LABS: Urine Appearance Clear; Urine Blood Negative (Negative); Urine Color Yellow; Urine Ketones Negative (Negative); Urine Protein Negative (Negative); Urine Specific Gravity 1.015 (1.010-1.030); Urine Urobilinogen Negative (Negative)
[2017-08-14 19:25] LABS: ABS Basophils 0.1 10^3/ul (0-0.2); ABS Eosinophils 0.2 10^3/ul (0-0.6); ABS Lymphocytes 2.3 10^3/ul (1.0-4.8); ABS Monocytes 0.7 10^3/ul (0-0.8); ABS Neutrophils 8.4 10^3/ul (1.5-7.7); ABS Nucleated RBC 0 10^3/ul; Eosinophil % 1.5 % (0-6); Hematocrit 41 % (35-47); Hemoglobin 13.7 g/dl (12.0-16.0); Lymphocyte % 19.8 % (25-47); Mean Corpuscular HGB Conc 33 g/dl (31-36); Mean Corpuscular Hemoglobin 28 pg (27-31); Mean Corpuscular Volume 85 fL (80-97); Mean Platelet Volume 8 um3 (7.4-10.4); Nucleated Red Blood Cells % 0.1; Platelet Count 257 10^3/ul (150-450); Red Blood Count 4.89 10^6/ul (4.0-5.4); Red Cell Distribution Width 15 % (10.5-15); White Blood Count 11.6 10^3/ul (3.5-10.8)
[2017-08-14 19:34] LABS: INR 0.9 (0.77-1.02)
[2017-08-14 19:40] LABS: EGFR Non-African American 84.7 (>60)
--- NOTE | 2017-08-14 19:57 | RAD ---
INDICATION: Left flank pain COMPARISON: December 05, 2015; CT May 09, 2013 TECHNIQUE: Noncontrast axial source images were acquired from the level hemidiaphragms to the symphysis pubis as part of CT imaging for renal stone. Lung bases: The lung bases are clear. Liver: The liver is enlarged with findings of hepatic steatosis. Noncontrast imaging shows no evidence of a hepatic mass or ductal dilatation. Gallbladder: Cholecystectomy. Spleen: The spleen is normal in size. The noncontrast CT appearance is normal. Pancreas: Noncontrast imaging shows no pancreatic mass or ductal dilitation. Adrenal glands: No masses are identified. Kidneys/Bladder: There is no evidence of nephrolithiasis or CT evidence of hydronephrosis. There are multiple tiny phleboliths along the course of the distal ureters which identified previously which which can be confirmed to be extra urinary. Noncontrast imaging shows no evidence of a renal mass. The bladder is unremarkable.. Adenopathy: There is a mildly prominent portacaval lymph node measuring 1.2 cm in short axis unchanged from the 2013 examination Evaluation is limited without oral contrast. Fluid collections: There are no free or localized fluid collections. Vessels: The aorta and iliac vessels are normal in caliber. There are no significant atherosclerotic changes. The IVC appears normal Pelvic organs: There is hysterectomy. Both ovaries are identified and appear normal in size. GI tract: Evaluation of the bowel is limited without oral contrast. The stomach, small bowel, and lower GI tract appear grossly normal. There are no obstructive findings. The appendix is visualized and appears normal. Soft tissues: No soft tissue abnormalities of the extraperitoneal abdomen or pelvis are identified. Osseous structures: There are no acute osseous findings. IMPRESSION: NO CT EVIDENCE OF UROLITHIASIS. NO CT FINDINGS TO ACCOUNT FOR THE PATIENT'S LEFT FLANK PAIN
[2017-08-14] MEDS ORDERED: Ketorolac INJ* 60 MG/2 ML VIAL IM ONE (20:06)
[2017-08-14] MEDS ORDERED: Orphenadrine Citrate IV* 30 MG/ML 2 ML VIAL IM ONE (20:07)
--- NOTE | 2017-08-14 20:41 | ED ---
Joseph Stewart Julia, scribed for Sabino Coley on 08/14/17 at 1851 . Abdominal Pain/Female - HPI Summary HPI Summary: This patient is a 47 year old F presenting to [facility] with a chief complaint of waxing and waning left sided flank pain since 08/10/17. Patient reports urinary frequency and pain with blood. Patient denies n/v/d.The patient rates the pain 6 /10 in severity currently and a 2/10 at best. Patient has a history of kidney stones. - History of Current Complaint Chief Complaint: EDAbdPain Stated Complaint: POSSIBLE UTI Time Seen by Provider: 08/14/17 18:38 Hx Obtained From: Patient Hx Last Menstrual Period: HYSTERECTOMY Onset/Duration: Lasting Days, Still Present Timing: Constant - waxing waning Pain Intensity: 6 Pain Scale Used: 0-10 Numeric Location: Flank - L Associated Signs and Symptoms: Positive: Other: - urinary frequency and pain with blood Simlar Episode/Dx as:: hx of kidney stones Allergies/Adverse Reactions: Allergies Allergy/AdvReac Type Severity Reaction Status Date / Time MS Amitriptyline Allergy Severe SOB, CHEST Verified 06/27/17 09:44 [Amitriptyline] TIGHTNESS MS Codeine [Codeine] Allergy Unknown Hives/Diff. Verified 06/27/17 09:44 Breathing/I tching MS Clindamycin [Clindamycin] Allergy Hives/Diff. Verified 06/27/17 09:44 Breathing/I tching MS Erythromycin Allergy Hives/Diff. Verified 06/27/17 09:44 [Erythromycin] Breathing/I tching PMH/Surg Hx/FS Hx/Imm Hx Endocrine/Hematology History: Denies: Hx Diabetes, Hx Thyroid Disease Cardiovascular History: Reports: Hx Hypercholesterolemia, Hx Hypertension - ON MEDICATION FOR Denies: Hx Pacemaker/ICD Respiratory History: Reports: Hx Asthma - PRN INHALER, Hx Sleep Apnea - current CPAP user Denies: Hx Chronic Obstructive Pulmonary Disease (COPD) GI History: Reports: Other GI Disorders - Obesity Denies: Hx Ulcer History: Reports: Hx Kidney Stones - LAST 6-7 YRS AGO Musculoskeletal History: Reports: Hx Arthritis - LEFT HAND Sensory History: Reports: Hx Contacts or Glasses - READING GLASSES, Other Sensory Impairments - Psoriasis Denies: Hx Hearing Aid Opthamlomology History: Reports: Hx Contacts or Glasses - READING GLASSES, Other Sensory Impairments - Psoriasis Neurological History: Reports: Hx Migraine - 2 TIMES PER MONTH- TREATS WITH REST AND IBUPROFEN, Other Neuro Impairments/Disorders - Sleep disorder Psychiatric History: Reports: Hx Depression - HX OF IN THE PAST - Surgical History Surgery Procedure, Year, and Place: Cholecystectomy, PARTIAL HYSTERECTOMY, Lithotripsy- left; X 3; Poly removed from uterus prior to hysterectomy Hx Anesthesia Reactions: No Infectious Disease History: No Infectious Disease History: Denies: Hx Clostridium Difficile, Hx Hepatitis, Hx Human Immunodeficiency Virus (HIV), Hx of Known/Suspected MRSA, Hx Shingles, Hx Tuberculosis, Hx Known/ Suspected VRE, Hx Known/Suspected VRSA, History Other Infectious Disease, Traveled Outside the [place] in Last 30 Days - Family History Known Family History: Positive: Hypertension - parents Negative: Diabetes - Social History Alcohol Use: None Substance Use Type: Reports: None Smoking Status (MU): Never Smoked Tobacco Review of Systems Positive: Abdominal Pain - L flank. Negative: Vomiting, Diarrhea, Nausea Positive: dysuria, frequency, hematuria All Other Systems Reviewed And Are Negative: Yes Physical Exam - Summary Physical Exam Summary: Appearance: Well appearing, no pain distress Skin: warm, dry, reflects adequate perfusion Head/face: normal Eyes: EOMI, BAUTISTA ENT: normal Neck: supple, non-tender Respiratory: CTA, breath sounds present Cardiovascular: RRR, pulses symmetrical Abdomen: L flank tenderness, soft Bowel: present Musculoskeletal: normal, strength/ROM intact Neuro: normal, sensory motor intact, A&Ox3 Triage Information Reviewed: Yes Vital Signs On Initial Exam: Initial Vitals Temp Pulse Resp BP Pulse Ox 98.1 F 84 20 237/164 97 08/14/17 13:45 08/14/17 13:45 08/14/17 13:45 08/14/17 13:45 08/14/17 13:45 Vital Signs Reviewed: Yes Diagnostics - Vital Signs Vital Signs Temp Pulse Resp BP Pulse Ox 08/14/17 17:34 98.1 F 80 20 198/150 97 08/14/17 15:15 98.1 F 79 18 150/76 96 08/14/17 13:45 98.1 F 84 20 237/164 97 - Laboratory Lab Results: Lab Results 08/14/17 08/14/17 08/14/17 Range/Units 18:47 19:13 19:13 WBC 11.6 H (3.5-10.8) 10^3/ul RBC 4.89 (4.0-5.4) 10^6/ul Hgb 13.7 (12.0-16.0) g/dl Hct 41 (35-47) % MCV 85 (80-97) fL MCH 28 (27-31) pg MCHC 33 (31-36) g/dl RDW 15 (10.5-15) % Plt Count 257 (150-450) 10^3/ul MPV 8 (7.4-10.4) um3 Neut % (Auto) 71.8 (38-83) % Lymph % (Auto) 19.8 L (25-47) % [place] % (Auto) 6.2 (1-9) % Eos % (Auto) 1.5 (0-6) % Baso % (Auto) 0.7 (0-2) % Absolute Neuts (auto) 8.4 H (1.5-7.7) 10^3/ul Absolute Lymphs (auto) 2.3 (1.0-4.8) 10^3/ul Absolute Monos (auto) 0.7 (0-0.8) 10^3/ul Absolute Eos (auto) 0.2 (0-0.6) 10^3/ul Absolute Basos (auto) 0.1 (0-0.2) 10^3/ul Absolute Nucleated RBC 0 10^3/ul Nucleated RBC % 0.1 INR (Anticoag Therapy) 0.90 (0.77-1.02) APTT 21.1 L (26.0-36.3) seconds Sodium (133-145) mmol/L Potassium (3.5-5.0) mmol/L Chloride (101-111) mmol/L Carbon Dioxide (22-32) mmol/L Anion Gap (2-11) mmol/L BUN (6-24) mg/dL Creatinine (0.51-0.95) mg/dL Est GFR ( Amer) (>60) Est GFR (Non-Af Amer) (>60) BUN/Creatinine Ratio (8-20) Glucose (70-100) mg/dL Calcium (8.6-10.3) mg/dL Total Bilirubin (0.2-1.0) mg/dL AST (13-39) U/L ALT (7-52) U/L Alkaline Phosphatase (34-104) U/L Total Protein (6.4-8.9) g/dL Albumin (3.2-5.2) g/dL Globulin (2-4) g/dL Albumin/Globulin Ratio (1-3) Lipase (11.0-82.0) U/L Beta HCG, Quant mIU/mL Urine Color Yellow Urine Appearance Clear Urine pH 6.0 (5-9) Ur Specific [place] 1.015 (1.010-1.030) Urine Protein Negative (Negative) Urine Ketones Negative (Negative) Urine Blood Negative (Negative) Urine Nitrate Negative (Negative) Urine Bilirubin Negative (Negative) Urine Urobilinogen Negative (Negative) Ur Leukocyte Esterase Negative (Negative) Urine Glucose Negative (Negative) Urine Ascorbic Acid * H (Negative) 08/14/17 Range/Units 19:13 WBC (3.5-10.8) 10^3/ul RBC (4.0-5.4) 10^6/ul Hgb (12.0-16.0) g/dl Hct (35-47) % MCV (80-97) fL MCH (27-31) pg MCHC (31-36) g/dl RDW (10.5-15) % Plt Count (150-450) 10^3/ul MPV (7.4-10.4) um3 Neut % (Auto) (38-83) % Lymph % (Auto) (25-47) % [place] % (Auto) (1-9) % Eos % (Auto) (0-6) % Baso % (Auto) (0-2) % Absolute Neuts (auto) (1.5-7.7) 10^3/ul Absolute Lymphs (auto) (1.0-4.8) 10^3/ul Absolute Monos (auto) (0-0.8) 10^3/ul Absolute Eos (auto) (0-0.6) 10^3/ul Absolute Basos (auto) (0-0.2) 10^3/ul Absolute Nucleated RBC 10^3/ul Nucleated RBC % INR (Anticoag Therapy) (0.77-1.02) APTT (26.0-36.3) seconds Sodium 135 (133-145) mmol/L Potassium 3.5 (3.5-5.0) mmol/L Chloride 99 L (101-111) mmol/L Carbon Dioxide 27 (22-32) mmol/L Anion Gap 9 (2-11) mmol/L BUN 14 (6-24) mg/dL Creatinine 0.73 (0.51-0.95) mg/dL Est GFR ( Amer) 109.0 (>60) Est GFR (Non-Af Amer) 84.7 (>60) BUN/Creatinine Ratio 19.2 (8-20) Glucose 99 (70-100) mg/dL Calcium 9.3 (8.6-10.3) mg/dL Total Bilirubin 0.50 (0.2-1.0) mg/dL AST 16 (13-39) U/L ALT 16 (7-52) U/L Alkaline Phosphatase 89 (34-104) U/L Total Protein 7.2 (6.4-8.9) g/dL Albumin 3.6 (3.2-5.2) g/dL Globulin 3.6 (2-4) g/dL Albumin/Globulin Ratio 1.0 (1-3) Lipase 14 (11.0-82.0) U/L Beta HCG, Quant < 0.60 mIU/mL Urine Color Urine Appearance Urine pH (5-9) Ur Specific [place] (1.010-1.030) Urine Protein (Negative) Urine Ketones (Negative) Urine Blood (Negative) Urine Nitrate (Negative) Urine Bilirubin (Negative) Urine Urobilinogen (Negative) Ur Leukocyte Esterase (Negative) Urine Glucose (Negative) Urine Ascorbic Acid (Negative) Result Diagrams: 08/14/17 19:13 08/14/17 19:13 Lab Statement: Any lab studies that have been ordered have been reviewed, and results considered in the medical decision making process. - CT A/P CT Interpretation Completed By: Radiologist - NO CT EVIDENCE OF UROLITHIASIS. NO CT FINDINGS TO ACCOUNT FOR THE PATIENT'S LEFT FLANK PAIN. ED Physician has reviewed this report. Abdominal Pain Fem Course/Dx - Course Course Of Treatment: Patient presents with L flank pain, hematuria, and dysuria with urgency. Bloodowork is collected and is unremarkable. Urine test is unremarkable. Patient is given Toradol, Morphine, Zofran, and Norflex. CT A/P is unremarkable. - Diagnoses Differential Diagnosis: Positive: Diverticulitis, Pancreatitis, Peptic Ulcer Disease, Renal Colic, Urinary Tract Infection Provider Diagnoses: Flank pain Discharge - Discharge Plan Condition: Stable Disposition: HOME Prescriptions: Cyclobenzaprine TAB* [Flexeril 10 MG TAB*] 10 mg PO TID PRN #15 tab MDD 3 PRN Reason: Pain Diclofenac Sodium EC TAB* [Voltaren EC TAB*] 50 mg PO TID PRN #15 tab.ec MDD 3 PRN Reason: Pain Patient Education Materials: Flank Pain (ED) Referrals: Narcisa Joseph, BUSINESS LAW PROFESSOR [Primary Care Provider] - 3 Days The documentation as recorded by the Joseph boggs Julia accurately reflects the service I personally performed and the decisions made by Brijesh claire Emmanuel.
[2017-08-14 22:06] VITALS: BP 0/0
== END 2017-08-14 21:35 | disposition home or self-care (01) ==
LOC: ED 13:31
DX: R10.9 Unspecified abdominal pain (principal); Z90.710 Acquired absence of both cervix and uterus; Z87.442 Personal history of urinary calculi; Z88.3 Allergy status to other anti-infective agents; Z88.5 Allergy status to narcotic agent; Z88.8 Allergy status to other drugs, medicaments and biological substances
CPT/HCPCS: 36415; 74176; 80053; 81003; 83690; 84702; 85025; 85610; 85730; 96374; 96375; 99284; J1885; J2270; J2405

== ENCOUNTER 2017-08-27 19:49 | Emergency (ER) | payer BC, OTHER ==
--- OUTSIDE RECORDS SUMMARY | 2017-08-27 20:12 | XMS REPORT ---
:1970 External Reference #:[id number] Author Organization [facility] Address [address] [place] [address] Phone [phone] Care Team Providers Name Role Phone Robina Chauhan M.D. 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 Primary Care Physician Unavailable Payers Type Date Identification Numbers Payment Provider Subscriber Commercial Effective: Policy Number: [place] Manasa Block Drake 2016 [id number] PayID: [id number] [place] [address] Problems Description No Information Family History Date Family Member(s) Problem(s) Comments Father due to MA () - several in his early 40s Father due to Septicemia () - following hip surgery at age 48 Mother Melanoma Mother Hypertension First Brother Psoriasis First Sister Hypertension Maternal Grandfather due to MA () Maternal Grandmother Stomach Cancer Social History Type Date Description Comments Education Highest level completed, 12th grade Lives With Mother Lives With Sons Lives With Daughter Diet Healthy, Well Balanced Sleep Reports difficulty falling asleep Pets several cats Pets 1 dog 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 Cigarette Use Never Smoked Cigarettes ETOH Use Denies alcohol use Daily Caffeine Does not consume caffeine Exercise Type/Frequency Exercises regularly walks, swims in the summer and gardens Allergies, Adverse Reactions, Alerts Date Description Reaction Status Severity Comments 11/21/2016 Amitriptyline active 11/21/2016 Clindamycin active 11/21/2016 Erythromycin active 11/21/2016 Tylenol With Codiene active 11/21/2016 Oranges active 11/21/2016 Tomatoes active 11/21/2016 peppers active 11/21/2016 Herbs active Medications Medication Date Status Form Strength Qnty SIG Indications Ordering Provider Lisinopril Active Tablets 5mg 30tabs take one Narcisa 017 tablet by Opal, mouth PRINT LINE SUPERVISOR once daily Triamterene/Hy Active Tablets 37.5-25mg 30tabs take one Narcisa drochlorothiaz 000 tablet by Opal, neli mouth [employer] LINE SUPERVISOR once daily Diclofenac Hx Gel 1% 100unit apply 2 M25.572 Narcisa Sodium 017 - s gm strip Opal, to left PRINT LINE SUPERVISOR 018 ankle and rub in well four times a day Lisinopril Hx Tablets 5mg 1 by Unknown 000 - mouth every day 017 Immunizations CPT Code Status Date Vaccine Lot # [id number] Given 03/08/2017 Influenza Vac, Quadrivalent, Slit Virus, Im Vital Signs Date Vital Result Comment 08/15/2017 BP Systolic 128 mmHg BP Diastolic 88 mmHg Heart Rate 80 /min Body Temperature 98.2 F Respiratory Rate 16 /min Height 64 inches 5'4" Weight 301.00 lb BMI (Body Mass Index) 51.7 kg/m2 03/08/2017 BP Systolic 124 mmHg BP Diastolic 86 mmHg Heart Rate 76 /min Body Temperature 99.5 F Respiratory Rate 16 /min Height 64 inches 5'4" Weight 294.00 lb BMI (Body Mass Index) 50.5 kg/m2 11/21/2016 BP Systolic 142 mmHg BP Diastolic 90 mmHg Heart Rate 98 /min Body Temperature 99.2 F Respiratory Rate 20 /min Height 64 inches 5'4" Weight 287.00 lb BMI (Body Mass Index) 49.3 kg/m2 Results Test Date Test Result H/L Range Note CBC Auto Diff 08/14/2017 White Blood Count 11.6 10^3/uL High 3.5-10.8 Red Blood Count 4.89 10^6/uL 4.0-5.4 Hemoglobin 13.7 g/dL 12.0-16.0 Hematocrit 41 % 35-47 Mean Corpuscular Volume 85 fL 80-97 Mean Corpuscular Hemoglobin 28 pg 27-31 Mean Corpuscular HGB Conc 33 g/dL 31-36 Red Cell Distribution Width 15 % 10.5-15 Platelet Count 257 10^3/uL 150-450 Mean Platelet Volume 8 um3 7.4-10.4 Abs Neutrophils 8.4 10^3/uL High 1.5-7.7 Abs Lymphocytes 2.3 10^3/uL 1.0-4.8 Abs Monocytes 0.7 10^3/uL 0-0.8 Abs Eosinophils 0.2 10^3/uL 0-0.6 Abs Basophils 0.1 10^3/uL 0-0.2 Abs Nucleated RBC 0 10^3/uL Granulocyte % 71.8 % 38-83 Lymphocyte % 19.8 % Low 25-47 Monocyte % 6.2 % 1-9 Eosinophil % 1.5 % 0-6 Basophil % 0.7 % 0-2 Nucleated Red Blood Cells % 0.1 Comp Metabolic Panel 08/14/2017 Sodium 135 mmol/L 133-145 Potassium 3.5 mmol/L 3.5-5.0 Chloride 99 mmol/L Low 101-111 Co2 Carbon Dioxide 27 mmol/L 22-32 Anion Gap 9 mmol/L 2-11 Glucose 99 mg/dL 70-100 Blood Urea Nitrogen 14 mg/dL 6-24 Creatinine 0.73 mg/dL 0.51-0.95 BUN/Creatinine Ratio 19.2 8-20 Calcium 9.3 mg/dL 8.6-10.3 Total Protein 7.2 g/dL 6.4-8.9 Albumin 3.6 g/dL 3.2-5.2 Globulin 3.6 g/dL 2-4 Albumin/Globulin Ratio 1.0 1-3 Total Bilirubin 0.50 mg/dL 0.2-1.0 Alkaline Phosphatase 89 U/L 34-104 Alt 16 U/L 7-52 Ast 16 U/L 13-39 Egfr Non- 84.7 >60 Egfr 109.0 >60 1 Laboratory test finding 08/14/2017 Lipase 14 U/L 11.0-82.0 HCG < 0.60 mIU/mL 2 Inr/Protime 08/14/2017 Inr 0.90 0.77-1.02 Laboratory test finding 08/14/2017 Partial Thrombo Time 21.1 seconds Low 26.0-36.3 PTT Urinalysis Profile 08/14/2017 Urine Color Yellow Urine Appearance Clear Urine Specific [place] 1.015 1.010-1.030 Urine pH 6.0 5-9 Urine Urobilinogen Negative Negative Urine Ketones Negative Negative Urine Protein Negative Negative Urine Leukocytes Negative Negative Urine Blood Negative Negative * * Negative 3 Urine Nitrite Negative Negative Urine Bilirubin Negative Negative Urine Glucose Negative Negative Comprehensive Metabolic Prof 11/21/2016 Sodium 140 mEq/L 134-149 Potassium 4.2 mEq/L 3.6-5.5 Chloride 102 mEq/L 94-112 Carbon Dioxide 22 mEq/L 21-32 Glucose 103 mg/dL 70-105 BUN 18 mg/dL 6-26 Creatinine 0.8 mg/dL 0.6-1.4 BUN/Creat Ratio 22.5 CALC 8.0-36.0 Calcium 9.8 mg/dL 8.6-10.2 Total Protein 8.0 g/dL 6.4-8.3 Albumin 4.2 g/dL 3.8-5.5 Globulin 3.8 g/dL 2.0-4.8 A/G Ratio 1.1 CALC 0.6-2.3 Alk. Phosphatase 101 U/L 30-110 Alt (SGPT) 20 U/L 7-35 Ast (Sgot) 20 U/L 5-34 Total Bilirubin 0.4 mg/dL 0.2-1.3 GFR Non- >60 ml/min/1.73m^ >=60 GFR >60 ml/min/1.73m^ >=60 Laboratory test finding 11/21/2016 Free T4 1.11 ng/dL 0.75-1.54 TSH 3.26 mIU/L 0.50-6.00 Free T3 3.57 pg/mL 2.00-4.90 CBC Electronic (a) 11/21/2016 WBC 11.1 High 3.6-9.6 RBC 5.42 3.90-5.70 Hemoglobin (Fma/CMC/CTX) 15.2 g/dL 12.1 - 17.2 Hematocrit (Fma/CMC/CTX) 45.7 % 36.1 - 50.3 Platelets 327 10^3/ul 150-400 Lymph% 22.5 % 17.0-48.0 Mixed% 5.2 Neutrophils % 72.3 Mean Corpuscular Vol 84 82.2-97.4 Mean Corpuscular Hemoglobin 28.1 27.6-33.3 Mean Corpuscular Hemo Concen 33.3 32.0-36.0 RDW 14.4 High 11.6-13.7 Mean Platelet Volume 6.8 5.5-11.0 1 Because ethnic data is not always readily available, this report includes an eGFR for both -Americans and non- Americans. The National Kidney Disease Education Program (NKDEP) does not endorse the use of the MDRD equation for patients that are not between the ages of 18 and 70, are , have extremes of body size, muscle mass, or nutritional status, or are non- or non-. According to the National Kidney Foundation, irrespective of diagnosis, the stage of the disease is based on the level of kidney function: Stage Description GFR(mL/min/1.73 m(2)) 1 Kidney damage with normal or decreased GFR 90 2 Kidney damage with mild decrease in GFR 60-89 3 Moderate decrease in GFR 30-59 4 Severe decrease in GFR 15-29 5 Kidney failure <15 (or dialysis) 2 <5.0 Negative 5.0 - 25.0 Indeterminate (Repeat testing recommended after 72 hours) >25.0 Positive Perimenopausal women can display HCG levels of up to 20 mIU/mL 3 *Ascorbic acid is present which may interfere with detection of blood. Procedures Description No Information Encounters Type Date Location Provider CPT E/M Dx Office Visit 03/08/2017 1:45p Main Office JAVIER Kessler [address] M25.572 Office Visit 11/21/2016 1:30p Main Office JAVIER Kessler [address] I10 Plan of Care 08/15/2017 - Mason Burch, MDR30.0 DysuriaNew Labs:Culture UrineComments :while we wait on the culture, hydrate well. Return if symptoms worsen.AllComments:~B_~U_Medication Management~b_~u_ Patient Understands medications she's taking? Yes No Are there Barriers to Adherence? Yes No Has the patient been asked about herbal supplements and therapies, and OTC meds? Yes No
--- NOTE | 2017-08-27 21:10 | ED ---
Throat Pain/Nasal Congestion - HPI Summary HPI Summary: 47-year-old female presents with dental pain since this morning. She states that the pain is located in right lower teeth. She denies any injury or new fracture to the tooth. She has history of cavities. The pain radiates to her right ear. She denies any chest pain or shortness of breath. She used Tylenol this morning with some relief. She states ice makes it better. She does not currently have a dentist. She denies any fevers. She is not diabetic. She is able to tolerate foods. - History of Current Complaint Chief Complaint: EDDentalPain Time Seen by Provider: 08/27/17 20:20 - Allergies/Home Medications Allergies/Adverse Reactions: Allergies Allergy/AdvReac Type Severity Reaction Status Date / Time amitriptyline Allergy Unknown Verified 08/27/17 20:06 Reaction Details clindamycin Allergy Unknown Verified 08/27/17 20:07 Reaction Details codeine Allergy Unknown Verified 08/27/17 20:07 Reaction Details erythromycin base Allergy Unknown Verified 08/27/17 20:07 Reaction Details PMH/Surg Hx/FS Hx/Imm Hx Endocrine/Hematology History: Denies: Hx Diabetes, Hx Thyroid Disease Cardiovascular History: Reports: Hx Hypercholesterolemia, Hx Hypertension - ON MEDICATION FOR Denies: Hx Pacemaker/ICD Respiratory History: Reports: Hx Asthma - PRN INHALER, Hx Sleep Apnea - current CPAP user Denies: Hx Chronic Obstructive Pulmonary Disease (COPD) GI History: Reports: Other GI Disorders - Obesity Denies: Hx Ulcer History: Reports: Hx Kidney Stones - LAST 6-7 YRS AGO Musculoskeletal History: Reports: Hx Arthritis - LEFT HAND Sensory History: Reports: Hx Contacts or Glasses - READING GLASSES, Other Sensory Impairments - Psoriasis Denies: Hx Hearing Aid Opthamlomology History: Reports: Hx Contacts or Glasses - READING GLASSES, Other Sensory Impairments - Psoriasis Neurological History: Reports: Hx Migraine - 2 TIMES PER MONTH- TREATS WITH REST AND IBUPROFEN, Other Neuro Impairments/Disorders - Sleep disorder Psychiatric History: Reports: Hx Depression - HX OF IN THE PAST - Surgical History Surgery Procedure, Year, and Place: Cholecystectomy, PARTIAL HYSTERECTOMY, Lithotripsy- left; X 3; Poly removed from uterus prior to hysterectomy Hx Anesthesia Reactions: No Infectious Disease History: No Infectious Disease History: Denies: Hx Clostridium Difficile, Hx Hepatitis, Hx Human Immunodeficiency Virus (HIV), Hx of Known/Suspected MRSA, Hx Shingles, Hx Tuberculosis, Hx Known/ Suspected VRE, Hx Known/Suspected VRSA, History Other Infectious Disease, Traveled Outside the [place] in Last 30 Days - Family History Known Family History: Positive: None, Unknown, Hypertension - parents Negative: Diabetes - Social History Alcohol Use: None Substance Use Type: Reports: None Smoking Status (MU): Never Smoked Tobacco Review of Systems Negative: Fever Positive: Dental Pain Negative: Chest Pain Negative: Shortness Of Breath All Other Systems Reviewed And Are Negative: Yes Physical Exam Triage Information Reviewed: Yes Vital Signs On Initial Exam: Initial Vitals Temp Pulse Resp BP Pulse Ox 99.0 F 91 16 160/95 95 08/27/17 20:00 08/27/17 20:00 08/27/17 20:00 08/27/17 20:00 08/27/17 20:00 Vital Signs Reviewed: Yes Appearance: Positive: Well-Appearing Skin: Positive: Warm, Dry Head/Face: Positive: Normal Head/Face Inspection Eyes: Positive: Normal, EOMI, BAUTISTA, Conjunctiva Clear ENT: Positive: Normal ENT inspection, Pharynx normal, TMs normal Dental: Positive: Percussion Tenderness @ - 28, Gross Decay/Caries @ - 28, Other - multiple missing teeth and diffuse cavities Neck: Positive: Supple, Nontender, No Lymphadenopathy Respiratory/Lung Sounds: Positive: Clear to Auscultation, Breath Sounds Present Cardiovascular: Positive: Normal, RRR Musculoskeletal: Positive: Normal Neurological: Positive: Normal Psychiatric: Positive: Normal Diagnostics - Vital Signs Vital Signs Temp Pulse Resp BP Pulse Ox 08/27/17 20:00 99.0 F 91 16 160/95 95 - Laboratory Lab Statement: Any lab studies that have been ordered have been reviewed, and results considered in the medical decision making process. EENT Course/Dx - Course Course Of Treatment: 47-year-old female presents with dental pain since this morning. She states that the pain is located in right lower teeth. She denies any injury or new fracture to the tooth. She has history of cavities. The pain radiates to her right ear. She denies any chest pain or shortness of breath. She used Tylenol this morning with some relief. She states ice makes it better. She does not currently have a dentist. She denies any fevers. She is not diabetic. She is able to tolerate foods.on exam has tenderness at tooth 28. no abscess felt. multiple missing teeth and cavities. will treat with PCN. patient understand and agrees with plan. - Differential Diagnoses Differential Diagnoses: Dental Abscess, Dental Caries, Fractured Tooth - Diagnoses Provider Diagnoses: Dental infection Discharge - Discharge Plan Condition: Good Disposition: HOME Prescriptions: Penicillin VK TAB* [Penicillin VK 250 mg Tab*] 500 mg PO QID #27 tab Patient Education Materials: Toothache (ED) Referrals: Narcisa Joseph NP [Primary Care Provider] - Additional Instructions: Take antibiotics: 4 times a day for 7 days, first dose given in ED Use ibuprofen and Tylenol every 6 hours Avoid hard, crunchy food until seen by dentist Follow up with dentist as soon as possible Return to ED if develop fever, shortness of breath, pain with eye movement or swelling around eye Images - Images Dental: 1 - pain
[2017-08-27] MEDS ORDERED: Penicillin VK TAB* 250 MG PO ONE (21:19)
[2017-08-27] MEDS ORDERED: Ketorolac INJ* 60 MG/2 ML VIAL IM ONE (21:19)
[2017-08-27 21:58] VITALS: BP 135/79
== END 2017-08-27 21:52 | disposition home or self-care (01) ==
LOC: ED 19:49
DX: K04.7 Periapical abscess without sinus (principal); K08.89 Other specified disorders of teeth and supporting structures
CPT/HCPCS: 96372; 99282; A9270-GY; J1885

== ENCOUNTER 2017-10-15 11:04 | Emergency (ER) | payer SELFPAY ==
--- OUTSIDE RECORDS SUMMARY | 2017-10-15 11:17 | XMS REPORT ---
:1970 External Reference #:[id number] Author Organization [facility] [employer] Address [address] [address] Phone [phone] Care Team Providers Name Role Phone Bahman Castillo MD Primary Care Physician Unavailable Payers Type Date Identification Numbers Payment Provider Subscriber Commercial Effective: Policy Number: [id number] [employer] Manasa Garcia 2016 PayID: [id number] [address] [address] [place] [address] Workers Compensation Effective: 2016 Policy Number: TSTWC Manasa Garcia [id number] Onset: 2016 Group Number: [id number] [address] Group Name: [id number] [place] [address] PayID: [id number] Date Description Provider Status Onset: 06/28/2011 Obstructive sleep apnea Lucy Muniz DNP, RN, Active syndrome [employer] Family History Date Family Member(s) Problem(s) Comments General maternal grandmother cancer,maternal grandfather heart disease Father Heart Disease Mother Cancer Siblings 1 sister,2 brothers alive and well Social History Type Date Description Comments Marital Status Lives With Family Occupation [employer] ETO[employer] Use Denies alcohol use Smoking Patient [...] 3 mg Administered Injection Ender and 3mg 018 MD Adrian Celestone 3 mg Administered Injection Ender and 3mg 017 MD Adrian Influenza Administered Injection Unknown Virus Vaccine 014 Vital Signs Date Vital Result Comment 09/20/2017 Height 64 inches 5'4" Heart Rate 82 /min BP Systolic 130 mmHg BP Diastolic 88 mmHg Respiratory Rate 17 /min Pain Level 5 08/09/2017 Height 64 inches 5'4" Weight 292.00 [...] SEE RESULT BELOW 1, 2 finding 1 [id number] 2 SEE RESULT BELOW Name: MANASA GARCIA : [address]: Ender Campbell MD Acct: [id number] Unit: [id number] AGE: 47 Location: [facility] Re06/27/17 SEX: F Status: JANINA CAMPBELL SPEC: [id number] LYLA: 06/27/17-[address]: Ender Campbell MD REQ: [id number] RECD: 06/27/17 STATUS: SOUT _ ORDERED: Isabella, LEVEL 3 COMMENTS: [id number] FINAL DIAGNOSIS Left ulna, excision: -- Benign [...] performed at Main Lab DEPARTMENT OF PATHOLOGY, [address] [place] [address] Shantanu Sandy M.D. Director [facility] # [id number] Procedures Date CPT Code Description Status 09/20/2017 37332 Inject Tendon Sheath Or Ligament Aponeurosis Eg Plantar Completed Fascia 08/09/2017 95811 Inject/Drain Joint/Bursa Small Completed 06/27/2017 77381 Arthroscopy,Wrist,Diagnostic,Synovectomy,Complete Completed 06/27/2017 68318 Arthroscopy,Wrist,Diagnostic,Synovectomy,Complete Completed 06/27/2017 34800 Unlisted Procedure, Forearm/Wrist Completed 06/27/2017 13709 Unlisted Procedure, Forearm/Wrist Completed 06/27/2017 85596 Osteoplasty Shorten Radius Or Ulna Completed 06/27/2017 49340 Osteoplasty Shorten Radius Or Ulna Completed 03/29/2017 90103 Inject/Drain Joint/Bursa Small Completed 11/29/2016 07682 Short Arm Cast Application Completed Encounters Type Date Location Provider CPT E/M Dx Office Visit 04/26/2017 [place] [address] S63.592D 10:00a [facility] M18.12 Office Visit 03/29/2017 10:00a [facility] [address] M18.12 [facility] S63.592D Office Visit 02/15/2017 8:15a [place] [address] S63.592D [facility] Office Visit 01/18/2017 9:00a [place] [address] M25.531 [facility] Office Visit 12/28/2016 2:30p [place] [address] M25.531 [facility] M25.531 Office Visit 12/26/2016 8:15a [facility] Ingrid Funk 63646 S63.642D [facility] M.DGermain Office Visit 11/29/2016 10:15a [facility] Ingrid Funk 39920 S63.642D [facility] M.DGermain Office Visit 11/12/2016 9:30a [facility] Ingrid Funk 78633 S63.642D Of [facility] MGermainDGermain Office Visit 10/17/2016 10:00a [facility] Shayla Braun 12328 S63.641D Of [facility].Zach RPA-C S63.642D Office Visit 09/24/2016 9:30a [facility] Ingrid Funk, 92727 S63.642A Of [facility].AGermain MAgatha S63.642A Office Visit 09/06/2015 8:00a [facility] Lucy Muniz, 46663 G47.33 Services Of Kimo BRANTLEY RN, JENNY E66.01 Office Visit 10/15/2014 1:00p [facility] Lucy Muniz, 37976 327.23 Services Of Kimo BRANTLEY RN, JENNY Plan of Care Future Appointment(s):11/22/2017 9:00 am - Ender Campbell MD at [facility]09/20/2017 - Ender Campbell, MDM24.832 Oth specific joint derangements of left wrist, NECFollow up:Follow up: 4 wdnxmB86.312 Trigger thumb, left thumb
[2017-10-15 11:37] VITALS: BP 135/84
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
== END 2017-10-15 12:55 | disposition home or self-care (01) ==
LOC: UCEAST 11:04
DX: M25.532 Pain in left wrist (principal); Z88.5 Allergy status to narcotic agent; Z88.3 Allergy status to other anti-infective agents; Z88.8 Allergy status to other drugs, medicaments and biological substances
CPT/HCPCS: 99211; G0463

== ENCOUNTER 2017-10-28 10:36 | Emergency (ER) | payer BC ==
[2017-10-28 12:11] VITALS: BP 155/87
--- NOTE | 2017-10-28 12:14 | ED ---
Skin Complaint - HPI Summary HPI Summary: 47 female presents to ER with complaints of a red, itchy, painful area in between her fourth and fifth toes of her right foot. States his been ongoing for the past week or so. She's been using soap and water to clean it however is not improved. Has not increased in size or redness. Denies fever chills, nausea vomiting. Patient is nondiabetic. Has never had anything like this before. No significant past medical history other than hypertension. - History of Current Complaint Chief Complaint: EDExtremityLower Stated Complaint: RT FOOT SWELLING Hx Obtained From: Patient Hx Last Menstrual Period: HYSTERECTOMY Onset/Duration: Started Days Ago, Still Present, Worse Since Skin Exposure Onset/Duration: Days Ago Timing: Constant Onset Severity: Mild Current Severity: Mild Pain Intensity: 6 Pain Scale Used: 0-10 Numeric Skin Location: Foot - Right foot in between the fourth and fifth toes Character: Swelling, Pruritus, Pain, Redness Aggravating Symptom(s): Nothing Alleviating Symptom(s): Nothing Associated Signs & Symptoms: Negative - Allergy/Home Medications Allergies/Adverse Reactions: Allergies Allergy/AdvReac Type Severity Reaction Status Date / Time amitriptyline Allergy Unknown Verified 10/28/17 10:44 Reaction Details clindamycin Allergy Unknown Verified 10/28/17 10:44 Reaction Details codeine Allergy Unknown Verified 10/28/17 10:44 Reaction Details erythromycin base Allergy Unknown Verified 10/28/17 10:44 Reaction Details PMH/Surg Hx/FS Hx/Imm Hx Endocrine/Hematology History: Denies: Hx Diabetes, Hx Thyroid Disease Cardiovascular History: Reports: Hx Hypercholesterolemia, Hx Hypertension - ON MEDICATION FOR Denies: Hx Pacemaker/ICD Respiratory History: Reports: Hx Asthma - PRN INHALER, Hx Sleep Apnea - current CPAP user Denies: Hx Chronic Obstructive Pulmonary Disease (COPD) GI History: Reports: Other GI Disorders - Obesity Denies: Hx Ulcer History: Reports: Hx Kidney Stones - LAST 6-7 YRS AGO Musculoskeletal History: Reports: Hx Arthritis - LEFT HAND Sensory History: Reports: Hx Contacts or Glasses - READING GLASSES, Other Sensory Impairments - Psoriasis Denies: Hx Hearing Aid Opthamlomology History: Reports: Hx Contacts or Glasses - READING GLASSES, Other Sensory Impairments - Psoriasis Neurological History: Reports: Hx Migraine - 2 TIMES PER MONTH- TREATS WITH REST AND IBUPROFEN, Other Neuro Impairments/Disorders - Sleep disorder Psychiatric History: Reports: Hx Depression - HX OF IN THE PAST - Surgical History Surgery Procedure, Year, and Place: Cholecystectomy, PARTIAL HYSTERECTOMY, Lithotripsy- left; X 3; Poly removed from uterus prior to hysterectomy ; left arm surgery- Dr. Kell Lamas Anesthesia Reactions: No - Immunization History Immunizations Up to Date: Yes Infectious Disease History: No Infectious Disease History: Denies: Hx Clostridium Difficile, Hx Hepatitis, Hx Human Immunodeficiency Virus (HIV), Hx of Known/Suspected MRSA, Hx Shingles, Hx Tuberculosis, Hx Known/ Suspected VRE, Hx Known/Suspected VRSA, History Other Infectious Disease, Traveled Outside the [place] in Last 30 Days - Family History Known Family History: Positive: None, Unknown, Hypertension - parents Negative: Diabetes - Social History Alcohol Use: None Substance Use Type: Reports: None Smoking Status (MU): Never Smoked Tobacco Review of Systems Constitutional: Negative Cardiovascular: Negative Respiratory: Negative Gastrointestinal: Negative Musculoskeletal: Negative Positive: Rash Neurological: Negative All Other Systems Reviewed And Are Negative: Yes Physical Exam Triage Information Reviewed: Yes Vital Signs On Initial Exam: Initial Vitals Temp Pulse Resp BP Pulse Ox 97.3 F 80 16 149/91 95 10/28/17 10:42 10/28/17 10:42 10/28/17 10:42 10/28/17 10:42 10/28/17 10:42 Vital Signs Reviewed: Yes Appearance: Positive: Well-Appearing, No Pain Distress, Well-Nourished Skin: Positive: Warm, Skin Color Reflects Adequate Perfusion, Dry, Erythema @ - In between fourth and fifth digits of right foot nontender white discharge noted resembling tinea no open wounds no surrounding cellulitis, rest of skin on the appeared to be dry, Other - Rest of skin exam normal. Negative: Cold, Numb, Cyanosis @, Pale Head/Face: Positive: Normal Head/Face Inspection Eyes: Positive: Conjunctiva Clear ENT: Positive: Pharynx normal Neck: Positive: Supple, Nontender Respiratory/Lung Sounds: Positive: Clear to Auscultation, Breath Sounds Present. Negative: Rales, Rhonchi, Wheezes Cardiovascular: Positive: Normal, RRR, Pulses are Symmetrical in both Upper and Lower Extremities - 2+ pedal. Negative: Murmur, Rub Abdomen Description: Positive: Soft Bowel Sounds: Positive: Present Musculoskeletal: Positive: Normal, Strength/ROM Intact. Negative: Limited @, Interruption @, Pain @ Neurological: Positive: Normal, Sensory/Motor Intact, Alert, Oriented to Person Place, Time, NV Bundle Intact Distally, Normal Gait Diagnostics - Vital Signs Vital Signs Temp Pulse Resp BP Pulse Ox 10/28/17 12:09 98.1 F 75 18 155/87 95 10/28/17 10:42 97.3 F 80 16 149/91 95 - Laboratory Lab Statement: Any lab studies that have been ordered have been reviewed, and results considered in the medical decision making process. Course/Dx - Course Course Of Treatment: Appears to be suffering from tinea pedis. Will treat with topical clotrimazole. Aware worsening signs symptoms watch out for. Warm soaks in Epsom salts. Triple antibiotic. Keep feet clean and dry avoid sweating. Follow-up with PCP. - Differential Diagnoses - Skin Complaint Differential Diagnoses: Cellulitis, Tinea - Diagnoses Provider Diagnoses: Tinea pedis Discharge - Sign-Out/Discharge Documenting (check all that apply): Discharge/Admit/Transfer - Discharge Plan Condition: Good Disposition: HOME Prescriptions: Clotrimazole 1% CREAM* [Clotrimazole 1%*] 1 applic TOPICAL BID #1 tube Patient Education Materials: Athlete's Foot (ED) Referrals: Narcisa Joseph COMPUTER OPERATIONS TECHNICIAN [Primary Care Provider] - Additional Instructions: Use prescribed medication as directed, twice daily until symptoms resolve. Also recommend applying triple antibiotic (neosporin) at different times daily, not at the same time as using prescribed topical medication. Warms soaks with Epsom salts. Make sure to dry off very well. Any new or worsening symptoms or if symptoms persist please seek medical attention as we discussed (fever, nausea, increased redness, pain, swelling). Follow-up with PCP in 2 days for recheck - Billing Disposition and Condition Condition: GOOD Disposition: HOME
== END 2017-10-28 12:39 | disposition home or self-care (01) ==
LOC: ED 10:36
DX: B35.3 Tinea pedis (principal); I10 Essential (primary) hypertension; E78.00 Pure hypercholesterolemia, unspecified; Z79.899 Other long term (current) drug therapy; Z88.8 Allergy status to other drugs, medicaments and biological substances
CPT/HCPCS: 99282

== ENCOUNTER 2017-10-30 11:47 | Emergency (ER) | payer BC ==
--- NOTE | 2017-10-30 12:52 | ED ---
Skin Complaint - HPI Summary HPI Summary: Pt here w/ Rt foot irritation/pain/redness between 4th and 5th toes. Was seen here a couple of days ago and dx'd w/ tinea pedis - rx'd clotrimazole, epsom salt soaks and topical triple anbx ointment. She's been doing these and soaks although painful at first are helpful. Feels redness and pain are worsening - no spread, just darker. No drainage, no streaking, no fever/chills. She is able to bear weight and ambulate w/ minimal discomfort - declines assisstive walking device. - History of Current Complaint Chief Complaint: EDExtremityLower Time Seen by Provider: 10/30/17 12:11 Stated Complaint: RT FOOT SWOLLEN-RETURN FROM SATURDAY Hx Obtained From: Patient Hx Last Menstrual Period: HYSTERECTOMY Pain Intensity: 8 - Allergy/Home Medications Allergies/Adverse Reactions: Allergies Allergy/AdvReac Type Severity Reaction Status Date / Time amitriptyline Allergy Unknown Verified 10/30/17 11:54 Reaction Details clindamycin Allergy Unknown Verified 10/30/17 11:54 Reaction Details codeine Allergy Unknown Verified 10/30/17 11:54 Reaction Details erythromycin base Allergy Unknown Verified 10/30/17 11:54 Reaction Details PMH/Surg Hx/FS Hx/Imm Hx Previously Healthy: Yes Endocrine/Hematology History: Denies: Hx Diabetes, Hx Thyroid Disease Cardiovascular History: Reports: Hx Hypercholesterolemia, Hx Hypertension - ON MEDICATION FOR Denies: Hx Pacemaker/ICD Respiratory History: Reports: Hx Asthma - PRN INHALER, Hx Sleep Apnea - current CPAP user Denies: Hx Chronic Obstructive Pulmonary Disease (COPD) GI History: Reports: Other GI Disorders - Obesity Denies: Hx Ulcer History: Reports: Hx Kidney Stones - LAST 6-7 YRS AGO Musculoskeletal History: Reports: Hx Arthritis - LEFT HAND Sensory History: Reports: Hx Contacts or Glasses - READING GLASSES, Other Sensory Impairments - Psoriasis Denies: Hx Hearing Aid Opthamlomology History: Reports: Hx Contacts or Glasses - READING GLASSES, Other Sensory Impairments - Psoriasis Neurological History: Reports: Hx Migraine - 2 TIMES PER MONTH- TREATS WITH REST AND IBUPROFEN, Other Neuro Impairments/Disorders - Sleep disorder Psychiatric History: Reports: Hx Depression - HX OF IN THE PAST - Surgical History Surgery Procedure, Year, and Place: Cholecystectomy, PARTIAL HYSTERECTOMY, Lithotripsy- left; X 3; Poly removed from uterus prior to hysterectomy ; left arm surgery- Dr. Castorena Hx Anesthesia Reactions: No Infectious Disease History: No Infectious Disease History: Denies: Hx Clostridium Difficile, Hx Hepatitis, Hx Human Immunodeficiency Virus (HIV), Hx of Known/Suspected MRSA, Hx Shingles, Hx Tuberculosis, Hx Known/ Suspected VRE, Hx Known/Suspected VRSA, History Other Infectious Disease, Traveled Outside the [place] in Last 30 Days - Family History Known Family History: Positive: None, Unknown, Hypertension - parents Negative: Diabetes - Social History Alcohol Use: None Substance Use Type: Reports: None Smoking Status (MU): Never Smoked Tobacco Review of Systems Constitutional: Negative Positive: no symptoms reported Musculoskeletal: Negative Positive: Rash Neurological: Negative Psychological: Normal All Other Systems Reviewed And Are Negative: Yes Physical Exam Triage Information Reviewed: Yes Vital Signs On Initial Exam: Initial Vitals Temp Pulse Resp BP Pulse Ox 97.4 F 100 20 116/75 94 10/30/17 11:49 10/30/17 11:49 10/30/17 11:49 10/30/17 11:49 10/30/17 11:49 Vital Signs Reviewed: Yes Appearance: Positive: Well-Appearing, No Pain Distress, Well-Nourished Skin: Positive: Warm, Skin Color Reflects Adequate Perfusion - erythema between 4th and 5th toes w/ maceration and small pustule - no purulent drainage, no streaking Head/Face: Positive: Normal Head/Face Inspection Cardiovascular: Positive: Pulses are Symmetrical in both Upper and Lower Extremities Musculoskeletal: Positive: Strength/ROM Intact Neurological: Positive: Sensory/Motor Intact Psychiatric: Positive: Normal Diagnostics - Vital Signs Vital Signs Temp Pulse Resp BP Pulse Ox 10/30/17 11:49 97.4 F 100 20 116/75 94 - Laboratory Lab Statement: Any lab studies that have been ordered have been reviewed, and results considered in the medical decision making process. Course/Dx - Course Course Of Treatment: Pt's tinea pedis appears to be worse - advising avoiding moisture in the area and switched to nystatin powder. Added an anbx as she may have 2ndry bacterial infection. Education provided. F/u advised. Danger s/sx reviewed. - Diagnoses Provider Diagnoses: Tinea pedis, Cellulitis Discharge - Sign-Out/Discharge Documenting (check all that apply): Discharge/Admit/Transfer - Discharge Plan Condition: Stable Disposition: HOME Prescriptions: Nystatin TOP POWDER* 1 applic TOPICAL TID #1 btl Sulfamethox/Trimethoprim DS* [Bactrim DS 800/160 TAB*] 1 tab PO BID #20 tab Patient Education Materials: Athlete's Foot (ED) Referrals: Narcisa Joseph NP [Primary Care Provider] - Additional Instructions: Your athlete's foot appears to be slightly worse from previous visit. It is advised that you wash the area 1-2 times a day, rinse well and patent dry thoroughly before applying a thin layer of clotrimazole cream at least twice a day followed by nystatin powder 3 times a day. It is important that you keep your feet dry. This may be done by removing her feet from shoes and socks periodically throughout the day to air dry as well as wearing white cotton socks to absorb moisture and avoiding standing in moist socks or shoes for periods of time. If you are in a situation where you have to wear socks and shoes throughout the day, make sure you change your socks to keep moisture away from this infected area on your right foot. Use the cream and powder until infection/rash clears. Once this occurs, continue to use cream/powder for an additional 2 weeks to keep infection away. Stop Epsom salt soaks. Due to a new pustule that has formed and worsening of redness, an antibiotic has also been sent to your pharmacy. Complete the course and follow-up with PCP in one to 2 weeks for recheck of rash/infection. If symptoms are worse, he may require a biopsy and change in treatment. *If you develop fevers, chills, streaking, return to the emergency department - Billing Disposition and Condition Condition: STABLE Disposition: HOME
[2017-10-30 13:18] VITALS: BP 131/66
== END 2017-10-30 13:07 | disposition home or self-care (01) ==
LOC: ED 11:47
DX: B35.3 Tinea pedis (principal)
CPT/HCPCS: 99281

== ENCOUNTER 2017-12-16 10:15 | Emergency (ER) | payer BC, OTHER ==
--- OUTSIDE RECORDS SUMMARY | 2017-12-16 10:50 | XMS REPORT ---
:1970 External Reference #:[id number] Author Organization [facility] Address [address] [address] Phone [phone] Care Team Providers Name Role Phone Bahman Castillo MD Primary Care Physician Unavailable Payers Type Date Identification Numbers Payment Provider Subscriber Commercial Effective: Policy Number: [id number] [employer] Manasa Garcia 2016 PayID: [id number] [address] [address] [place] [address] Workers Compensation Effective: 2016 Policy Number: TSTWC Manasa Garcia [id number] Onset: 2016 Group Number: [id number] [address] Group Name: [id number] [place] [address] PayID: [id number] Date Description Provider Status Onset: 06/28/2011 Obstructive sleep apnea Lucy Muniz DNP, RN, Active syndrome [employer] Family History Date Family Member(s) Problem(s) Comments General maternal grandmother cancer,maternal grandfather heart disease Father Heart Disease Mother Cancer Siblings 1 sister,2 brothers alive and well Social History Type Date Description Comments Marital Status Lives With Family 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 Denies alcohol use Smoking Patient [...] 014 Vital Signs Date Vital Result Comment 11/22/2017 Height 64 inches 5'4" Heart Rate 88 /min BP Systolic 132 mmHg BP Diastolic 86 mmHg Respiratory Rate 16 /min Body Temperature 98.4 F Pain Level 10 09/20/2017 Height 64 inches 5'4" Heart Rate [...] SEE RESULT BELOW 1, 2 finding 1 [id number] 2 SEE RESULT BELOW Name: MANASA GARCIA : [address]: Ender Campbell MD Acct: [id number] Unit: [id number] AGE: 47 Location: [facility] Re06/27/17 SEX: F Status: JANINA CAMPBELL SPEC: [id number] LYLA: 06/27/17-1350 [facility] DR: Ender Campbell MD REQ: [id number] RECD: 06/27/17 STATUS: SOUT _ ORDERED: Decal, LEVEL 3 COMMENTS: [id number] FINAL DIAGNOSIS Left ulna, excision: -- Benign [...] performed at Main Lab DEPARTMENT OF PATHOLOGY, [address] [place] [address] Shantanu Sandy M.D. Director [facility] # [id number] Procedures Date CPT Code Description Status 09/20/2017 19764 Inject Tendon Sheath Or Ligament Aponeurosis Eg Plantar Completed Fascia 08/09/2017 59575 Inject/Drain Joint/Bursa Small Completed 06/27/2017 09459 Arthroscopy,Wrist,Diagnostic,Synovectomy,Complete Completed 06/27/2017 10907 Arthroscopy,Wrist,Diagnostic,Synovectomy,Complete Completed 06/27/2017 10458 Unlisted Procedure, Forearm/Wrist Completed 06/27/2017 59190 Unlisted Procedure, Forearm/Wrist Completed 06/27/2017 17016 Osteoplasty Shorten Radius Or Ulna Completed 06/27/2017 68908 Osteoplasty Shorten Radius Or Ulna Completed 03/29/2017 62867 Inject/Drain Joint/Bursa Small Completed 11/29/2016 82403 Short Arm Cast Application Completed Encounters Type Date Location Provider CPT E/M Dx Office Visit 04/26/2017 [place] [address] S63.592D 10:00a Of Norma.M.Zach M18.12 Office Visit 03/29/2017 10:00a [facility] [place] [address] M18.12 C.M.A. S63.592D Office Visit 02/15/2017 8:15a [place] [address] S63.592D Of C.M.A. Office Visit 01/18/2017 9:00a [place] [address] M25.531 Of C.[facility]. Office Visit 12/28/2016 2:30p [place] [address] M25.531 Of C.[facility]. M25.531 Office Visit 12/26/2016 8:15a [facility] Ingrid Funk 44679 S63.642D Of C.M.A. MGermainDGermain Office Visit 11/29/2016 10:15a [facility] Ingrid Funk 25068 S63.642D Of C.M.A. M.DGermain Office Visit 11/12/2016 9:30a [facility] Ingrid Funk 60860 S63.642D Of C.M.A. M.DGermain Office Visit 10/17/2016 10:00a [facility] Shayla Braun 03095 S63.641D Of C.M.Zach RPA-C S63.642D Office Visit 09/24/2016 9:30a [facility] Ingrid Funk 26958 S63.642A Of C.M.A. MGermainDGermain S63.642A Office Visit 09/06/2015 8:00a [facility] Lucy Muniz 58695 G47.33 Services Of Kimo BRANTLEY RN, JENNY E66.01 Office Visit 10/15/2014 1:00p [facility] Lucy Muniz 22004 327.23 Services Of Kimo BRANTLEY RN, JENNY Plan of Care Future Appointment(s):01/28/2018 1:15 pm - Ender Campbell MD at [facility]/22/2017 - Ender Campbell, MDM24.832 Oth specific joint derangements of left wrist, NECNew Xrays:Forearm Left 2 VWSNew Therapy:Physical TherapyFollow up:Follow up: 2 njbsqlX44.312 Trigger thumb, left thumb
[2017-12-16 10:53] VITALS: BP 134/73
--- NOTE | 2017-12-16 10:54 | UC ---
Lower Extremity/Ankle HPI - HPI Summary HPI Summary: Patient injured right foot while standing after sitting on the ground 1 week ago ---she has pain and swelling in top of foot---painful to weight bear. n/m/c intact distally - History of Current Complaint Chief Complaint: UCLowerExtremity Stated Complaint: RIGHT FOOT INJURY Time Seen by Provider: 12/16/17 10:53 Hx Obtained From: Patient Hx Last Menstrual Period: HYSTERECTOMY ?: No Onset/Duration: Sudden Onset Pain Intensity: 5 Pain Scale Used: 0-10 Numeric Aggravating Factor(s): Standing, Ambulation Alleviating Factor(s): Rest, Ice, OTC Meds Able to Bear Weight: Yes - Allergies/Home Medications Allergies/Adverse Reactions: Allergies Allergy/AdvReac Type Severity Reaction Status Date / Time amitriptyline Allergy Unknown Verified 12/16/17 10:53 Reaction Details clindamycin Allergy Unknown Verified 12/16/17 10:53 Reaction Details codeine Allergy Unknown Verified 12/16/17 10:53 Reaction Details erythromycin base Allergy Unknown Verified 12/16/17 10:53 Reaction Details PMH/Surg Hx/FS Hx/Imm Hx Cardiovascular History: Hypertension Respiratory History: Asthma - mild intermittent - Surgical History Surgical History: Yes Surgery Procedure, Year, and Place: Cholecystectomy, PARTIAL HYSTERECTOMY, Lithotripsy- left; X 3; Poly removed from uterus prior to hysterectomy ; left arm surgery- Dr. Castorena - Family History Known Family History: Positive: None, Unknown, Hypertension - parents Negative: Diabetes - Social History Occupation: Unemployed Lives: With Family Alcohol Use: None Substance Use Type: None Smoking Status (MU): Never Smoked Tobacco Review of Systems Constitutional: Negative Skin: Negative Eyes: Negative ENT: Negative Respiratory: Negative Cardiovascular: Negative Gastrointestinal: Negative Genitourinary: Negative Motor: Negative Neurovascular: Negative Musculoskeletal: Arthralgia - top of right foot Neurological: Negative Psychological: Negative Is Patient Immunocompromised?: No All Other Systems Reviewed And Are Negative: Yes Physical Exam Triage Information Reviewed: Yes Appearance: Well-Appearing, Pain Distress - mild, Obese Vital Signs: Initial Vital Signs Temp 98.1 F 12/16/17 10:48 Pulse 78 12/16/17 10:48 Resp 18 12/16/17 10:48 BP 134/73 12/16/17 10:48 Pulse Ox 97 12/16/17 10:48 Vital Signs Reviewed: Yes Eye Exam: Normal Eyes: Positive: Conjunctiva Clear ENT Exam: Normal ENT: Positive: Normal ENT inspection, Hearing grossly normal. Negative: Nasal drainage, TMs normal, Trismus, Muffled voice, Hoarse voice, Sinus tenderness Dental Exam: Normal Neck exam: Normal Neck: Positive: Supple, Nontender Respiratory Exam: Normal Respiratory: Positive: Chest non-tender, Lungs clear, No respiratory distress, No accessory muscle use Cardiovascular Exam: Normal Cardiovascular: Positive: RRR, Pulses Normal, Brisk Capillary Refill Musculoskeletal Exam: Normal Musculoskeletal: Positive: Strength Intact, ROM Intact, No Edema Neurological Exam: Normal Neurological: Positive: Alert, Muscle Tone Normal Psychological Exam: Normal Skin Exam: Normal Diagnostics - Radiology No standard instances Xray Interpretation: No Acute Changes Radiology Interpretation Completed By: ED Physician, Radiologist - Patient Name : RAMANA SINGLETARY Medical Record# : [id number] Ordering Physician: Merlyn Lechuga NP Acct.#: [id number] : 1970 Age: 47 Sex: F [facility]: [facility] Exam Date: 12/16 1058 ADM Status: REG ER Order Information: FOOT RIGHT 3+ VWS Accession Number: [id number] CPT: 45451 Indication: Right foot pain. 3 views of the right foot demonstrates no fracture. No other bone or joint abnormality is identified. IMPRESSION: No fracture of the right foot is noted. <Electronically signed by Fawn Mcclure MD in OV> 12/16/17 1125 Dictated By: Fawn Mcclure MD Dictated Date/Time: 12/16/17 1125 Transcribed Date/Time: 12/16/17 112 Copy to: CC:Merlyn Lechuga NP; Narcisa Joseph NP; Chris Mariano MD [facility] [place] [facility] [place] [address] [place] [address] ph ( [phone]) ph [phone]) ([phone]) 1 of 1 Lower Extremity Course/Dx - Course Course Of Treatment: dave brower boot, ibuprofen follow with [facility] if fails to improve - Differential Dx/Diagnosis Provider Diagnoses: Right foot sprain Discharge - Sign-Out/Discharge Documenting (check all that apply): Discharge/Admit/Transfer - Discharge Plan Condition: Stable Disposition: HOME Patient Education Materials: Ibuprofen (By mouth), Foot Sprain (ED), R.I.C.E. Treatment (ED) Referrals: Narcisa Joseph NP [Primary Care Provider] - If Needed Evelia Ayoub MD [Medical Doctor] - If Needed - Billing Disposition and Condition Condition: STABLE Disposition: Home
--- NOTE | 2017-12-16 11:28 | RAD ---
Indication: Right foot pain. 3 views of the right foot demonstrates no fracture. No other bone or joint abnormality is identified. IMPRESSION: No fracture of the right foot is noted.
== END 2017-12-16 11:54 | disposition home or self-care (01) ==
LOC: UCEAST 10:15
DX: S93.601A Unspecified sprain of right foot, initial encounter (principal); X58.XXXA Exposure to other specified factors, initial encounter; Z88.8 Allergy status to other drugs, medicaments and biological substances; Z88.1 Allergy status to other antibiotic agents; Z88.5 Allergy status to narcotic agent; Y92.9 Unspecified place or not applicable
CPT/HCPCS: 99211; G0463

== ENCOUNTER 2018-08-20 10:53 | Emergency (ER) | payer BC ==
[2018-08-20] MEDS ORDERED: NS 0.9% 1000 ML** 1,000 ML IV ONE (12:38)
--- NOTE | 2018-08-20 12:45 | ED ---
Abdominal Pain/Female - HPI Summary HPI Summary: This patient is a 48-year-old female who presents to the emergency department with a chief complaint of upper abdominal pain. The patient reports that on August 07 she developed watery diarrhea without any blood or mucus which lasted until August 17. After worse, the patient was feeling better however last night she developed this the patient reports that the pain is stabbing and is approximately 7 out of 10. There is no precipitating or relieving factors. The pain is nonradiating. And she reports that she never had this pain before. Patient already had a cholecystectomy, hysterectomy and 3 C-sections. Patient has no other complaints. - History of Current Complaint Chief Complaint: EDAbdPain Stated Complaint: VOMITING, COUGH Time Seen by Provider: 08/20/18 12:32 Hx Obtained From: Patient Hx Last Menstrual Period: HYSTERECTOMY Onset/Duration: Sudden Onset, Still Present Timing: Constant Severity Initially: Moderate Pain Intensity: 7 Location: Other - upper abdominal pain Radiates: No Radiates to: Other - none Character: Sharp Aggravating Factor(s): Nothing Alleviating Factor(s): Nothing Associated Signs and Symptoms: Positive: Nausea, Vomiting Simlar Episode/Dx as:: never - Risk Factors Ectopic Risk Factor: Negative Ovarian Torsion Risk Factor: Negative Allergies/Adverse Reactions: Allergies Allergy/AdvReac Type Severity Reaction Status Date / Time amitriptyline Allergy TIGHTNESS Verified 06/12/18 14:39 TO CHEST AND SOB clindamycin Allergy TIGHTNESS Verified 06/12/18 14:39 TO CHEST AND SOB codeine Allergy TIGHTNESS Verified 06/12/18 14:39 TO CHEST AND SOB, ALSO SWELLIN GOF TONGUE erythromycin base Allergy TIGHTNESS Verified 06/12/18 14:39 TO CHEST AND SOB PMH/Surg Hx/FS Hx/Imm Hx Previously Healthy: No - sleep apnea, htn Endocrine/Hematology History: Denies: Hx Diabetes, Hx Thyroid Disease Cardiovascular History: Reports: Hx Hypercholesterolemia, Hx Hypertension - ON MEDICATION FOR Denies: Hx Pacemaker/ICD Respiratory History: Reports: Hx Asthma - PRN INHALER, Hx Sleep Apnea - current CPAP user Denies: Hx Chronic Obstructive Pulmonary Disease (COPD) GI History: Reports: Other GI Disorders - Obesity Denies: Hx Ulcer History: Reports: Hx Kidney Stones - LAST 6-7 YRS AGO Musculoskeletal History: Reports: Hx Arthritis - LEFT HAND Sensory History: Reports: Hx Contacts or Glasses - READING GLASSES, Other Sensory Impairments - Psoriasis Denies: Hx Hearing Aid Opthamlomology History: Reports: Hx Contacts or Glasses - READING GLASSES, Other Sensory Impairments - Psoriasis Neurological History: Reports: Hx Migraine - 2 TIMES PER MONTH- TREATS WITH REST AND IBUPROFEN, Other Neuro Impairments/Disorders - Sleep disorder Psychiatric History: Reports: Hx Depression - HX OF IN THE PAST Denies: Hx Panic Disorder - Surgical History Surgery Procedure, Year, and Place: Cholecystectomy, PARTIAL HYSTERECTOMY, Lithotripsy- left; X 3; Polyp removed from uterus prior to hysterectomy;. Lt WRIST/ ARM WITH A PLATE Dr. Castorena Hx Anesthesia Reactions: No Infectious Disease History: No Infectious Disease History: Denies: Hx Clostridium Difficile, Hx Hepatitis, Hx Human Immunodeficiency Virus (HIV), Hx of Known/Suspected MRSA, Hx Shingles, Hx Tuberculosis, Hx Known/ Suspected VRE, Hx Known/Suspected VRSA, History Other Infectious Disease, Traveled Outside the [place] in Last 30 Days - Family History Known Family History: Positive: None, Unknown, Hypertension - parents Negative: Diabetes - Social History Alcohol Use: None Substance Use Type: Reports: None Smoking Status (MU): Never Smoked Tobacco Review of Systems Constitutional: Negative Positive: Fatigue. Negative: Fever, Chills, Skin Diaphoresis Eyes: Negative Positive: Photophobia ENT: Negative Cardiovascular: Negative Respiratory: Negative Positive: Abdominal Pain, Vomiting, Nausea Genitourinary: Negative Musculoskeletal: Negative Skin: Negative Neurological: Negative Psychological: Normal All Other Systems Reviewed And Are Negative: Yes Physical Exam - Summary Physical Exam Summary: VITAL SIGNS: Reviewed. GENERAL: Patient is an obese female who is lying comfortable in the stretcher. Patient is not in any acute respiratory distress. HEAD AND FACE: Normocephalic and atraumatic. EYES: PERRLA, EOMI x 2, No injected conjunctiva. EARS: Hearing grossly intact. Ear canals and tympanic membranes are WNL. MOUTH: Oropharynx within normal limits. NECK: Supple, trachea is midline, no adenopathy, no JVD. CHEST: Symmetric, no tenderness at palpation LUNGS: Clear to auscultation bilaterally. No wheezing or crackles. CVS: RRR, S1 and S2 present, no murmurs or gallops appreciated. ABDOMEN: Soft, positive tenderness in the upper abdomen. No signs of distention. Positive bowel sounds. No rebound no guarding, and no masses palpated. No abdominal bruit or pulsations. EXTREMITIES: FROM in all major joints, no edema, no cyanosis or clubbing. NEURO: Alert and oriented x 3. No acute neurological deficits. Speech is normal. SKIN: Dry and warm Triage Information Reviewed: Yes Vital Signs On Initial Exam: Initial Vitals Temp Pulse Resp BP Pulse Ox 98.5 F 81 19 151/86 95 08/20/18 10:59 08/20/18 10:59 08/20/18 10:59 08/20/18 10:59 08/20/18 10:59 Vital Signs Reviewed: Yes Appearance: Positive: Well-Appearing, Obese Diagnostics - Vital Signs Vital Signs Temp Pulse Resp BP Pulse Ox 08/20/18 10:59 98.5 F 81 19 151/86 95 - Laboratory Result Diagrams: 08/20/18 12:59 08/20/18 12:59 Lab Statement: Any lab studies that have been ordered have been reviewed, and results considered in the medical decision making process. Abdominal Pain Fem Course/Dx - Course Course Of Treatment: Patient is a 48-year-old female in the ED course the patient was given IV fluids, she was given Zofran for nausea and vomiting. Blood work without any significant abnormality except for glucose of 102, AST is 12, CRP is 42.2, amylase is 24. In the ED course the patient was given IV fluids, Zofran for nausea and vomiting. Abdominal pelvic CT impression: hepatomegaly with fatty infiltration of the liver. No acute pathology of the visualized abdomen and pelvis. After the patient received the IV fluids Zofran patients symptoms have significantly improved. The patient reports that the abdominal pain has resolved. Since the blood work and imaging is within normal limits I will discharge the patient home with follow-up with PCP. The patient is hemodynamically stable alert and oriented 3. I discussed all the findings and test results with the patient. Patient was instructed to return to the emergency room immediately if any of the symptoms return or worsens. Plan of care was discussed with the patient and understands and agrees. All questions were answered at patient satisfaction. There were no further complaints or concerns. Lung exam before discharge: CTA B/L. Good air exchange. No wheezing or crackles heard. CVS: S1 and S2 present. No murmurs appreciated. Patient is alert and oriented x 3. Patient is hemodynamically stable. Patient will be discharged home with follow up PCP in the next 2-3 days - Diagnoses Differential Diagnosis: Positive: Appendicitis, Constipation, Diverticulitis, Urinary Tract Infection Provider Diagnoses: Upper abdominal pain Discharge - Sign-Out/Discharge Documenting (check all that apply): Patient Departure Patient Received Moderate/Deep Sedation with Procedure: No - Discharge Plan Condition: Stable Disposition: HOME Prescriptions: Ondansetron TAB* [Zofran 4 MG Tab*] 4 mg PO Q6H PRN #10 tab PRN Reason: Vomiting Patient Education Materials: Acute Abdominal Pain (DC) Referrals: Narcisa Joseph NP [Primary Care Provider] - Additional Instructions: His fluid intake. Take Tylenol or ibuprofen for the pain. Follow-up with PCP in the next 2 days. Return to the emergency department if the symptoms worsen. - Billing Disposition and Condition Condition: STABLE Disposition: Home - Attestation Statements Document Initiated by Scribe: No
[2018-08-20] MEDS ORDERED: Ondansetron INJ* 2 MG/ML VIAL IV ONE (12:48)
[2018-08-20 13:08] LABS: ABS Basophils 0.1 10^3/ul (0-0.2); ABS Eosinophils 0.2 10^3/ul (0-0.6); ABS Lymphocytes 2.4 10^3/ul (1.0-4.8); ABS Monocytes 0.6 10^3/ul (0-0.8); ABS Neutrophils 6.8 10^3/ul (1.5-7.7); ABS Nucleated RBC 0 10^3/ul; Eosinophil % 1.5 %; Hematocrit 40 % (35-47); Hemoglobin 13.2 g/dl (12.0-16.0); Lymphocyte % 23.5 %; Mean Corpuscular HGB Conc 33 g/dl (31-36); Mean Corpuscular Hemoglobin 28 pg (27-31); Mean Corpuscular Volume 84 fL (80-97); Mean Platelet Volume 7.3 fL (7.4-10.4); Nucleated Red Blood Cells % 0.1; Platelet Count 313 10^3/ul (150-450); Red Blood Count 4.81 10^6/ul (4.00-5.40); Red Cell Distribution Width 15 % (10.5-15)
[2018-08-20 13:26] LABS: Albumin 3.8 g/dL (3.2-5.2); BUN/Creatinine Ratio 21.1 (8-20); C Reactive Protein 42.28 mg/L (<8.01); EGFR African American 105.4 (>60); EGFR Non-African American 87.1 (>60); Globulin 3.8 g/dL (2-4); Magnesium 1.9 mg/dL (1.9-2.7); Potassium 3.6 mmol/L (3.5-5.0); Total Bilirubin 0.4 mg/dL (0.2-1.0); Total Protein 7.6 g/dL (6.4-8.9)
[2018-08-20] MEDS ORDERED: Iohexol 300* (CONTRAST) 10 ML SDV IV ONE (14:09)
[2018-08-20 15:49] VITALS: BP 120/82
== END 2018-08-20 15:49 | disposition home or self-care (01) ==
LOC: ED 10:53
DX: R10.10 Upper abdominal pain, unspecified (principal); G47.30 Sleep apnea, unspecified; I10 Essential (primary) hypertension; Z88.5 Allergy status to narcotic agent; E78.00 Pure hypercholesterolemia, unspecified; F32.9 Major depressive disorder, single episode, unspecified; Z87.442 Personal history of urinary calculi; J45.909 Unspecified asthma, uncomplicated; E66.9 Obesity, unspecified
CPT/HCPCS: 36415; 74177; 80053; 82150; 83605; 83690; 83735; 85025; 86140; 93005; 99283; J2405; Q9967

== ENCOUNTER 2018-09-18 10:38 | Emergency (ER) | payer BC, OTHER ==
--- OUTSIDE RECORDS SUMMARY | 2018-09-18 11:14 | XMS REPORT | Continuity of Care Document ---
:1970 External Reference #:[id number] Author Name La Hutchinson Care Team Providers Name Role Phone Bahman Castillo MD Primary Care Physician Unavailable Payers Date Identification Numbers Payment Provider Subscriber Effective: 2016 Policy Number: [id number] BS [facility] Manasa Garcia PayID: [id number] [address] [address] [place] [address] Effective: 2016 Policy Number: [id number] TST Manasa Garcia Onset: 2016 Group Number: [id number] [address] Group Name: [place] [address] PayID: [id number] Advance Directives Description No Information Available Problems Date Description Provider Status Onset: 06/28/2011 Obstructive sleep apnea syndrome Lucy Muniz DNP, RN, Active [employer] Onset: 01/28/2018 Localized superficial swelling Ender Campbell MD Active of skin Onset: 01/28/2018 Other specific joint Ender Campbell MD Active derangements of left wrist, not elsewhere classified Onset: 02/18/2018 Tenosynovitis of hand Ender Campbell MD Active Family History Date Family Member(s) Observation Comments General maternal grandmother cancer,maternal grandfather heart disease Father Heart Disease Mother Cancer Siblings 1 sister,2 brothers alive and well Social History Type Date Description Comments Sex Unknown Marital Status Lives With Family 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 ETOH Use Denies alcohol use Tobacco Use Start: Unknown Patient has never smoked Recreational Drug Use Denies Drug Use Smoking Status Reviewed: 09/04/18 Patient has never smoked Exercise Type/Frequency Exercises sporadically Allergies, Adverse Reactions, Alerts Date Description Reaction Status Severity Comments 10/15/2014 Amitriptyline Active 09/06/2015 Clindamycin Active 09/24/2016 Erythromycin Active 06/12/2017 Codeine Active Medications Medication Date Status Form Strength Qnty SIG Indications Ordering Provider Methotrexate 09/04 Active Tablets 2.5mg 30tab take 4 L40.50 s capsules/t Andres, ablets by M.D. mouth once weekly on Folic Acid 09/04 Active Tablets 1mg 90tab take one L40.50 s capsule/ta Andres, blet daily M.D. by mouth Taltz 09/04 Active Solution 80mg/ml 8unit 160 mg L40.50 Auto-Inje s (two 80 mg Andres, ct injections M.D. ) at week 0, followed by 80 mg at weeks 2, 4, 6, 8, 10, and 12, then 80 mg every 4 weeks. Albuterol Sulfate 09/04 Active Powder puff every 6 hours as needed Lisinopril 09/04 Active Tablets 5mg 1 by mouth every day Hydrochlorothiazide Active 25mg 1 tab by Unknown mouth once a day Tremfya Active Soln 100mg/ml Every 2 Mcallist Prefill months r, Syringe MD Jacqui Tramadol HCL 02/18 Hx Tablets 50mg 30tab 1-2 s tablets by Adrian, - mouth 06/02 every hours as needed pain Hydrocodone-Acetami 06/27 Hx Tablets 5-325mg 30tab take 1 tab Ender s by mouth Adrian, - every 4-6 01/27 hours needed for pain. Potassium 09/04 Hx 1000Meq 1 tab twice a - day 08/13 Metformin HCL 09/04 Hx Tablets 500mg 1 by mouth twice a - day 08/13 Ferrous Fumarate 09/04 Hx Tablets 324mg 1 tab by mouth 2x - per day 08/13 Cosentyx 09/04 Hx Soln 150mg/ml inject 2 Prefill syringes - Syringe 150ml each 06/02 Vitamin B-12 09/04 Hx Tablets 1000mcg 1 by mouth every day - 07/13 Stelara Hx Unknown /0000 - 09/04 Medications Administered in Office Medication [...] Influenza Administered Injection Unknown Virus Vaccine 014 Immunizations Description No Information Available Vital Signs Date Vital Result Comment 09/04/2018 8:58am Height 64 inches 5'4" Weight 277.50 lb Heart Rate 94 /min BP Systolic Sitting 132 mmHg BP Diastolic Sitting 82 mmHg Pain Level 6 O2 % BldC Oximetry 97 % BMI (Body Mass Index) 47.6 kg/m2 07/03/2018 8:31am Height 64 inches 5'4" BP Systolic 138 mmHg BP Diastolic 88 mmHg Respiratory Rate 17 /min Body Temperature 98.3 F Pain Level 5 06/25/2018 8:05am Height 64 inches 5'4" Heart Rate 76 /min BP Systolic 130 mmHg BP Diastolic 80 mmHg Respiratory Rate 18 /min Pain Level 7 06/03/2018 9:35am Height 64 inches 5'4" Heart Rate 74 /min BP Systolic 136 mmHg BP Diastolic 84 mmHg Body Temperature 98.2 F Pain Level 6 03/19/2018 8:43am Height 64 inches 5'4" Pain Level 5 02/20/2018 8:06am Height 64 inches 5'4" Weight 276.00 lb BP Systolic 132 mmHg BP Diastolic 80 mmHg Respiratory Rate 18 /min Body Temperature 97.7 F Pain Level 7 BMI (Body Mass Index) 47.4 kg/m2 02/18/2018 11:24am Height 64 inches 5'4" Heart Rate 88 /min BP Systolic 130 mmHg BP Diastolic 82 mmHg Respiratory Rate 20 /min Body Temperature 98.0 F Pain Level 8 01/28/2018 1:28pm Height 64 inches 5'4" Weight 276.00 lb Heart Rate 78 /min Respiratory Rate 14 /min Pain Level 0 BMI (Body Mass Index) 47.4 kg/m2 01/28/2018 1:16pm Height 64 inches 5'4" Respiratory Rate 16 /min 11/22/2017 9:06am Height 64 inches 5'4" Heart Rate 88 /min BP Systolic 132 mmHg BP Diastolic 86 mmHg Respiratory Rate 16 /min Body Temperature 98.4 F Pain Level 10 09/20/2017 10:46am Height 64 inches 5'4" Heart Rate 82 /min BP Systolic 130 mmHg BP Diastolic 88 mmHg Respiratory Rate 17 /min Pain Level 5 08/09/2017 11:24am Height 64 inches 5'4" Weight 292.00 lb per pt Heart Rate 76 /min reg Respiratory Rate 16 /min Pain Level 8 left wrist, 6/10 left thumb BMI (Body Mass Index) 50.1 kg/m2 07/17/2017 9:52am Height 64 inches 5'4" Weight 295.00 lb Heart Rate 88 /min Respiratory Rate 20 /min BMI (Body Mass Index) 50.6 kg/m2 07/03/2017 9:52am Height 64 inches 5'4" BP Systolic 136 mmHg BP Diastolic 80 mmHg Respiratory Rate 18 /min Body Temperature 98.9 F Pain Level 10 06/12/2017 9:12am Height 64 inches 5'4" Weight 295.00 lb Heart Rate 84 /min BP Systolic 138 mmHg BP Diastolic 82 mmHg Respiratory Rate 18 /min Body Temperature 98.9 F Pain Level 3 BMI (Body Mass Index) 50.6 kg/m2 04/26/2017 10:02am Height 64 inches 5'4" Weight 266.00 lb Respiratory Rate 16 /min Body Temperature 98.0 F Pain Level 2 BMI (Body Mass Index) 45.7 kg/m2 03/29/2017 10:01am Height 64 inches 5'4" Weight 266.00 lb Heart Rate 72 /min Respiratory Rate 18 /min Body Temperature 98.3 F Pain Level 4 BMI (Body Mass Index) 45.7 kg/m2 02/15/2017 8:17am Height 64 inches 5'4" Weight 265.00 lb Heart Rate 72 /min Respiratory Rate 17 /min Body Temperature 98.4 F Pain Level 5 BMI (Body Mass Index) 45.5 kg/m2 01/18/2017 8:59am Height 64 inches 5'4" Weight 265.00 lb Heart Rate 77 /min Respiratory Rate 16 /min Pain Level 6 BMI (Body Mass Index) 45.5 kg/m2 12/28/2016 2:43pm Height 64 inches 5'4" Weight 265.00 lb Heart Rate 95 /min Respiratory Rate 19 /min Body Temperature 99.2 F Pain Level 5 BMI (Body Mass Index) 45.5 kg/m2 12/26/2016 8:15am Height 64 inches 5'4" Weight 265.00 lb Heart Rate 88 /min BP Systolic Sitting 134 mmHg BP Diastolic Sitting 84 mmHg Respiratory Rate 16 /min Body Temperature 98.6 F Pain Level 4 BMI (Body Mass Index) 45.5 kg/m2 11/29/2016 10:01am Height 64 inches 5'4" Weight 266.00 lb Heart Rate 80 /min Respiratory Rate 16 /min Body Temperature 99.1 F Pain Level 5 BMI (Body Mass Index) 45.7 kg/m2 11/12/2016 9:33am Height 64 inches 5'4" Weight 266.00 lb Heart Rate 88 /min BP Systolic 140 mmHg BP Diastolic 86 mmHg Respiratory Rate 18 /min Body Temperature 98.8 F Pain Level 5 BMI (Body Mass Index) 45.7 kg/m2 10/17/2016 9:24am Height 64 inches 5'4" Weight 266.00 lb Heart Rate 80 /min BP Systolic 179 mmHg BP Diastolic 89 mmHg Body Temperature 98.9 F Pain Level 5 BMI (Body Mass Index) 45.7 kg/m2 09/24/2016 9:50am Height 64 inches 5'4" Weight 260.00 lb Heart Rate 86 /min BP Systolic 142 mmHg BP Diastolic 82 mmHg Respiratory Rate 16 /min Body Temperature 97.8 F Pain Level 4 BMI (Body Mass Index) 44.6 kg/m2 09/06/2015 8:19am Height 64 inches 5'4" Weight 271.50 lb Heart Rate 92 /min BP Systolic 134 mmHg BP Diastolic 80 mmHg Respiratory Rate 14 /min O2 % BldC Oximetry 97 % BMI (Body Mass Index) 46.6 kg/m2 10/15/2014 1:09pm Height 64 inches 5'4" Weight 271.00 lb Heart Rate 79 /min BP Systolic Sitting 130 mmHg BP Diastolic Sitting 82 mmHg Body Temperature 98.3 F O2 % BldC Oximetry 97 % BMI (Body Mass Index) 46.5 kg/m2 Neck Circumference in inches 16.5 Results Test Date Facility Test Result H/L Range Note Xray 06/18/2018 [facility] MRI Upper <pending> [address] [place] [address] W/O [phone] Laboratory test 06/27/2017 [facility] Surgical SEE RESULT 1 , [address] Pathology BELOW SINDHU López [phone] [id number] 2 SEE RESULT BELOW Name: MANASA GARCIA : [address]: Ender Campbell MD Acct: [id number] Unit: [id number] AGE: 47 Location: [facility] [place] Re06/27/17 SEX: F Status: DEP [facility] SPEC: [id number] LYLA: 06/27/17-[address]: Ender Campbell MD REQ: [id number] RECD: 06/27/17 STATUS: SOUT _ ORDERED: Isabella, LEVEL 3 COMMENTS: [id number] FINAL DIAGNOSIS Left ulna, excision: -- Benign [...] performed at Main Lab DEPARTMENT OF PATHOLOGY, [address] [place] [address] Shantanu Sandy M.D. Director [facility] # [id number] Procedures Date Code Description Status 02/18/2018 21100 Inject/Drain Joint/Bursa Small W/O US Completed 09/20/2017 22456 Inject Tendon Sheath Or Ligament Aponeurosis Eg Plantar Completed Fascia 08/09/2017 38580 Inject/Drain Joint/Bursa Small W/O US Completed 06/27/2017 27513 Arthroscopy,Wrist,Diagnostic,Synovectomy,Complete Completed 06/27/2017 78553 Arthroscopy,Wrist,Diagnostic,Synovectomy,Complete Completed 06/27/2017 94814 Unlisted Procedure, Forearm/Wrist Completed 06/27/2017 20632 Unlisted Procedure, Forearm/Wrist Completed 06/27/2017 75242 Osteoplasty Shorten Radius Or Ulna Completed 06/27/2017 15990 Osteoplasty Shorten Radius Or Ulna Completed 03/29/2017 59469 Inject/Drain Joint/Bursa Small W/O US Completed 11/29/2016 45944 Short Arm Cast Application Completed Encounters Type Date Location Provider Dx Diagnosis Office Visit 07/03/2018 Orthopedic Ender Etienne, S90.31xD Contusion of 8:45a [facility] right foot, subsequent encounter Office Visit 06/25/2018 Orthopedic Ender Campbell, M65.842 Other synovitis 8:00a [facility] and tenosynovitis, left hand M24.832 [facility] specific joint derangements of left wrist, NEC Office Visit 06/03/2018 10:00a Orthopedic Ender S93.601A Unspecified [facility] Etienne. sprain of right C.M.A. foot, initial encounter Office Visit 02/20/2018 8:30a Orthopedic Ender S93.601A Unspecified [facility] Etienne sprain of right C.M.A. foot, initial encounter Office Visit 02/18/2018 11:00a Orthopedic Ender M65.842 Other synovitis Services [facility] MD Adrian and C.M.A. tenosynovitis, left hand Office Visit 01/28/2018 1:15p Gordy Handley R22.32 Localized [facility] Adrian swelling, mass C.M.A. and lump, left upper limb M24.832 Oth specific joint derangements of left wrist, NEC R22.32 Localized swelling, mass and lump, left upper limb Office Visit 11/22/2017 9:00a Gordy Handley M24.832 Oth specific joint Services Of MD Adrian derangements of C.M.A. left wrist, NEC M65.312 Trigger thumb, left thumb M24.832 Oth specific joint derangements of left wrist, NEC Office Visit 04/26/2017 10:00a Gordy Handley S63.592D Other specified [facility] MD Adrian sprain of left C.M.A. wrist, subsequent encounter M18.12 Unil primary osteoarth of first carpometacarp joint, l hand Office Visit 03/29/2017 10:00a Gordy Handley M18.12 Unil primary [facility] MD Adrian osteoarth of first C.M.A. carpometacarp joint, l hand S63.592D Other specified sprain of left wrist, subsequent encounter Office Visit 02/15/2017 8:15a Gordy Handley S63.592D Other specified [facility] Adrian sprain of left C.M.A. wrist, subsequent encounter Office Visit 01/18/2017 9:00a Gordy Handley M25.531 Pain in right Services Of MD Adrian wrist C.M.A. Office Visit 12/28/2016 2:30p Gordy Handley M25.531 Pain in right [facility] MD Adrian wrist C.M.A. M25.531 Pain in right wrist Office 12/26/2016 Orthopedic Ingrid S63.642D Sprain of Visit 8:15a [facility] Funk metacarpophalangeal C.M.A. joint of left thumb, subs Office 11/29/2016 Orthopedic Ingrid S63.642D Sprain of Visit 10:15a [facility] Funk metacarpophalangeal C.M.A. joint of left thumb, subs Office 11/12/2016 Orthopedic Ingrid S63.642D Sprain of Visit 9:30a [facility] Funk metacarpophalangeal C.M.A. joint of left thumb, subs Office 10/17/2016 Orthopedic Shayal S63.641D Sprain of Visit 10:00a Services Of [facility]parna metacarpophalangeal C.M.A. RPA-C joint of right thumb, subs S63.642D Sprain of metacarpophalangeal joint of left thumb, subs Office 09/24/2016 Orthopedic Ingrid S63.642A Sprain of Visit 9:30a [facility] Funk metacarpophalangeal C.M.A. joint of left thumb, init S63.642A Sprain of metacarpophalangeal joint of left thumb, init Office Visit 09/06/2015 Pulmonology And Lucy G47.33 Obstructive sleep 8:00a Sleep [facility]ON Muniz RN, apnea (adult) [facility] (pediatric) E66.01 Morbid (severe) obesity due to excess calories Office Visit 10/15/2014 Pulmonology And Lucy 327.23 Obstructive Sleep 1:00p [facility] Muniz RN, Apnea Adult & [facility] Pediatric Plan of Treatment Future Appointment(s):10/10/2018 10:40 am - Mason Campos M.D. 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 Although a similar condition can occur in people who abuse alcohol, MATTSON occurs in those who drink little to no alcohol. The exact cause of MATTSON is unknown. However, it is seen more frequently in people with certain medical conditions such as diabetes, obesity, and insulinresistance.Losing weight can help to reduce levels of liver enzymes and insulin, and can improve your quality of life. Weight loss should be gradual (for example 1 to 2 lbs per week) since rapid weightloss has been associated with worsening of liver disease. A healthcare provider or metal moulder can provide an individualized weight loss plan. I also recommend daily exercise and avoidance of alcoholFollow up:Follow up in 3 to 4 weeks or sooner if needed
[2018-09-18 12:12] VITALS: BP 129/85
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
== END 2018-09-18 11:48 | disposition home or self-care (01) ==
LOC: ED 10:38
DX: T14.8XXA Other injury of unspecified body region, initial encounter (principal); W22.09XA Striking against other stationary object, initial encounter; Y92.811 Bus as the place of occurrence of the external cause; I10 Essential (primary) hypertension; E78.00 Pure hypercholesterolemia, unspecified; J45.909 Unspecified asthma, uncomplicated; G47.33 Obstructive sleep apnea (adult) (pediatric); E66.9 Obesity, unspecified; F32.9 Major depressive disorder, single episode, unspecified; Z88.5 Allergy status to narcotic agent; Z88.3 Allergy status to other anti-infective agents; Z88.8 Allergy status to other drugs, medicaments and biological substances; Z79.899 Other long term (current) drug therapy
CPT/HCPCS: 99281

== ENCOUNTER 2018-11-02 10:40 | Emergency (ER) | payer BC ==
--- OUTSIDE RECORDS SUMMARY | 2018-11-02 10:47 | XMS REPORT | Continuity of Care Document ---
:1970 External Reference #:[id number] Author Name Robina Chauhan M.D. Address [address] [facility] [place] [address] Care Team Providers Name Role Phone Robina Chauhan M.D. 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 Primary Care Physician Unavailable Payers Date Identification Numbers Payment Provider Subscriber Effective: 2016 Policy Number: [id number] / Of JOHN Ramana Umair Jose PayID: [id number] [address] [place] [id number] Advance Directives Description No Information Available Problems Active Problems Provider Date Psoriasis Robina Chauhan M.D. Onset: 10/13/2018 Steatosis of liver Robina Chauhan M.D. Onset: 10/13/2018 Essential hypertension JAVIER Kessler Onset: 10/13/2018 Psoriasis with arthropathy Robina Chauhan M.D. Onset: 10/14/2018 Obesity Robina Chauhan M.D. Onset: 10/14/2018 Family History Date Family Member(s) Observation Comments Father due to CT () - several in his early 40s Father due to Septicemia () - following hip surgery at age 48 Mother Melanoma Mother Hypertension Children 3 Siblings 3 First Brother Psoriasis Second Brother No Current Problems First Sister Hypertension Maternal Grandfather due to CT () Maternal Grandmother Stomach Cancer Social History Type Date Description Comments Sex Unknown Education Highest level completed, 12th grade Lives With Mother Lives With Sons Lives With Daughter Diet Average daily caloric intake is excessive Diet Skips Meals skips breakfast, eats salt Sleep Reports difficulty falling asleep Pets several cats Pets 1 dog 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 Tobacco Use Start: Unknown Never Smoked Cigarettes ETOH Use Denies alcohol use Tobacco Use Start: Unknown Patient has never smoked Smoking Status Reviewed: 10/14/18 Patient has never smoked Exercise Exercises sporadically Type/Frequency Exercise Walks daily 30 min a day Type/Frequency Allergies, Adverse Reactions, Alerts Active Allergies Reaction Severity Comments Date Amitriptyline 11/21/2016 Clindamycin 11/21/2016 Erythromycin 11/21/2016 Tylenol With Codiene 11/21/2016 Oranges 11/21/2016 Tomatoes 11/21/2016 peppers 11/21/2016 Herbs 11/21/2016 Medications Active Medications SIG Qnty Indications Ordering Date Provider Amoxicillin/Clavulana 1 by mouth twice a 14tabs J06.9 Robina Chauhan, 2018 te Potassium day x 7 days M.D. 500-125mg Tablets Lisinopril Take 1 Tablet By 30tabs Narcisa Joseph, 11/21/2016 5mg Tablets Mouth Once Daily DIGITAL PHOTOGRAPHER Ventolin HFA take 1-2 puffs Unknown inhaled every 4 108(90Base) mcg/Act hours as needed Aerosol for wheezing or tightness in the chest Triamterene/Hydrochlo Take 1 Tablet By 30tabs Narcisa Joseph, rothiazide Mouth Once Daily DIGITAL PHOTOGRAPHER 37.5-25mg Tablets Methotrexate 6 tablets every Unknown 2.5mg Saturday. Tablets Folic Acid 1 by mouth every Unknown 1mg Tablets day Otezla bid Unknown 30mg Tablets History Medications Cephalexin one po qid 28tabs L03.115 Mason Luke 11/01/2017 - 250mg MD Kiersten 03/21/2018 Tablets Diclofenac Sodium apply 2 gm 100units M25.572 JAVIER Kessler 2016 - strip to left 08/15/2017 1% Gel ankle and rub in well four times a day Lisinopril 1 by mouth Unknown - 5mg every day 11/21/2016 Tablets Nystop use twice a day 30gm Mason Luke - MD Kiersten 03/21/2018 268015Uhgd/GM Powder Sulfamethoxazole/Tr 1 by mouth Unknown - imethoprim DS twice a day 11/01/2017 800-160mg Tablets Clotrimazole apply to Unknown - 1% affected area 03/21/2018 Cream twice daily for 2 weeks Tremfya once every 2 Unknown - 100mg/ml months 10/14/2018 Soln Prefill Syringe Immunizations CPT Code Status Date Vaccine Lot # [id number] Given 10/14/2018 Tdap Tetanus, W Pertussis [id number] Given 03/08/2017 Influenza Vac, Quadrivalent, Slit Virus, Im Vital Signs Date Vital Result Comment 10/14/2018 1:45pm BP Systolic 110 mmHg BP Diastolic 76 mmHg Heart Rate 100 /min Body Temperature 98.4 F Respiratory Rate 16 /min Height 63.5 inches 5'3.50" Weight 278.00 lb BMI (Body Mass Index) 48.5 kg/m2 03/21/2018 9:39am Heart Rate 70 /min Body Temperature 99.3 F Respiratory Rate 16 /min Height 64 inches 5'4" Weight 238.50 lb BMI (Body Mass Index) 40.9 kg/m2 11/01/2017 11:40am BP Systolic 120 mmHg BP Diastolic 68 mmHg Heart Rate 60 /min Body Temperature 98.1 F Respiratory Rate 18 /min Height 64 inches 5'4" Weight 294.00 lb BMI (Body Mass Index) 50.5 kg/m2 08/15/2017 10:59am BP Systolic 128 mmHg BP Diastolic 88 mmHg Heart Rate 80 /min Body Temperature 98.2 F Respiratory Rate 16 /min Height 64 inches 5'4" Weight 301.00 lb BMI (Body Mass Index) 51.7 kg/m2 03/08/2017 1:38pm BP Systolic 124 mmHg BP Diastolic 86 mmHg Heart Rate 76 /min Body Temperature 99.5 F Respiratory Rate 16 /min Height 64 inches 5'4" Weight 294.00 lb BMI (Body Mass Index) 50.5 kg/m2 11/21/2016 1:05pm BP Systolic 142 mmHg BP Diastolic 90 mmHg Heart Rate 98 /min Body Temperature 99.2 F Respiratory Rate 20 /min Height 64 inches 5'4" Weight 287.00 lb BMI (Body Mass Index) 49.3 kg/m2 Results Test Date Facility Test Result H/L Range Note CBC Auto Diff 08/20/2018 [facility] White Blood Count 10.0 10^3/uL N 3.5-10.8 Red Blood Count 4.81 10^6/uL N 4.00-5.40 Hemoglobin 13.2 g/dL N 12.0-16.0 Hematocrit 40 % N 35-47 Mean Corpuscular Volume 84 fL N 80-97 Mean Corpuscular Hemoglobin 28 pg N 27-31 Mean Corpuscular HGB Conc 33 g/dL N 31-36 Red Cell Distribution Width 15 % N 10.5-15 Platelet Count 313 10^3/uL N 150-450 Mean Platelet Volume 7.3 fL Low 7.4-10.4 Abs Neutrophils 6.8 10^3/uL N 1.5-7.7 Abs Lymphocytes 2.4 10^3/uL N 1.0-4.8 Abs Monocytes 0.6 10^3/uL N 0-0.8 Abs Eosinophils 0.2 10^3/uL N 0-0.6 Abs Basophils 0.1 10^3/uL N 0-0.2 Abs Nucleated RBC 0 10^3/uL Granulocyte % 68.1 % Lymphocyte % 23.5 % Monocyte % 6.3 % Eosinophil % 1.5 % Basophil % 0.6 % Nucleated Red Blood Cells % 0.1 Laboratory test finding 08/20/2018 [facility] Lactic Acid 1.0 mmol/L N 0.5-2.0 1 Comp Metabolic Panel 08/20/2018 [facility] Sodium 136 mmol/L N 135-145 Potassium 3.6 mmol/L N 3.5-5.0 Chloride 102 mmol/L N 101-111 Co2 Carbon Dioxide 25 mmol/L N 22-32 Anion Gap 9 mmol/L N 2-11 Glucose 102 mg/dL High 70-100 Blood Urea Nitrogen 15 mg/dL N 6-24 Creatinine 0.71 mg/dL N 0.51-0.95 BUN/Creatinine Ratio 21.1 High 8-20 Calcium 9.0 mg/dL N 8.6-10.3 Total Protein 7.6 g/dL N 6.4-8.9 Albumin 3.8 g/dL N 3.2-5.2 Globulin 3.8 g/dL N 2-4 Albumin/Globulin Ratio 1.0 N 1-3 Total Bilirubin 0.40 mg/dL N 0.2-1.0 Alkaline Phosphatase 72 U/L N 34-104 Alt 10 U/L N 7-52 Ast 12 U/L Low 13-39 Egfr Non- 87.1 >60 Egfr 105.4 >60 2 Laboratory test finding 08/20/2018 [facility] Magnesium 1.9 mg/dL N 1.9-2.7 Amylase 24 U/L Low 29-103 Lipase 14 U/L N 11.0-82.0 C Reactive Protein 42.28 mg/L High <8.01 Antinuclear 03/21/2018 [facility] Antinuclear Positive Abnormal 3, 4 Antibodies, [facility] [address] [facility] Antibodies, [place] [address] (232)- - Homogeneous Pattern TNP Nucleolar Pattern 1:80 Speckled Pattern TNP Centromere Pattern TNP Spindle Apparatus Pattern TNP Nuclear Membrane Pattern TNP Midbody Pattern TNP Nuclear Dot Pattern TNP Pcna Pattern TNP Centriole Pattern TNP Note: See Comment: 5 Rheumatoid 03/21/2018 [facility] Ra Latex Turbid. <10.0 IU/mL 0.0-13.9 Arthritis Factor [address] [facility] ([facility]) [place] [address] (861)- - Laboratory test 08/15/2017 [facility] Urine Culture And SEE RESULT 6 finding Sensitivities BELOW Ua - Non Micro 08/15/2017 [facility] Appearance yellow (Fma) (607)- - Color clear Glucose, Urine ([facility]/CTX) neg Bilirubin neg Ketones neg SP Grav 1.015 Blood neg PH 7.5 Protein neg Urobil 0.2 Nitrite neg Leukocytes (Fma/[facility]/Centrex) neg Inr/Protime 08/14/2017 [facility] Inr 0.90 N 0.77-1.02 Laboratory test finding 08/14/2017 [facility] Partial Thrombo 21.1 seconds Low 26.0-36.3 Time PTT Urinalysis Profile 08/14/2017 [facility] Urine Color Yellow Urine Appearance Clear Urine Specific [place] 1.015 N 1.010-1.030 Urine pH 6.0 N 5-9 Urine Urobilinogen Negative Negative Urine Ketones Negative Negative Urine Protein Negative Negative Urine Leukocytes Negative Negative Urine Blood Negative Negative * * Abnormal Negative 7 Urine Nitrite Negative Negative Urine Bilirubin Negative Negative Urine Glucose Negative Negative Laboratory test finding 08/14/2017 [facility] Lipase 14 U/L N 11.0-82.0 HCG < 0.60 mIU/mL 8 Comp Metabolic Panel 08/14/2017 [facility] Sodium 135 mmol/L N 133-145 Potassium 3.5 mmol/L N 3.5-5.0 Chloride 99 mmol/L Low 101-111 Co2 Carbon Dioxide 27 mmol/L N 22-32 Anion Gap 9 mmol/L N 2-11 Glucose 99 mg/dL N 70-100 Blood Urea Nitrogen 14 mg/dL N 6-24 Creatinine 0.73 mg/dL N 0.51-0.95 BUN/Creatinine Ratio 19.2 N 8-20 Calcium 9.3 mg/dL N 8.6-10.3 Total Protein 7.2 g/dL N 6.4-8.9 Albumin 3.6 g/dL N 3.2-5.2 Globulin 3.6 g/dL N 2-4 Albumin/Globulin Ratio 1.0 N 1-3 Total Bilirubin 0.50 mg/dL N 0.2-1.0 Alkaline Phosphatase 89 U/L N 34-104 Alt 16 U/L N 7-52 Ast 16 U/L N 13-39 Egfr Non- 84.7 >60 Egfr 109.0 >60 9 CBC Auto Diff 08/14/2017 [facility] White Blood Count 11.6 10^3/uL High 3.5- 10.8 Red Blood Count 4.89 10^6/uL N 4.0-5.4 Hemoglobin 13.7 g/dL N 12.0-16.0 Hematocrit 41 % N 35-47 Mean Corpuscular Volume 85 fL N 80-97 Mean Corpuscular Hemoglobin 28 pg N 27-31 Mean Corpuscular HGB Conc 33 g/dL N 31-36 Red Cell Distribution Width 15 % N 10.5-15 Platelet Count 257 10^3/uL N 150-450 Mean Platelet Volume 8 um3 N 7.4-10.4 Abs Neutrophils 8.4 10^3/uL High 1.5-7.7 Abs Lymphocytes 2.3 10^3/uL N 1.0-4.8 Abs Monocytes 0.7 10^3/uL N 0-0.8 Abs Eosinophils 0.2 10^3/uL N 0-0.6 Abs Basophils 0.1 10^3/uL N 0-0.2 Abs Nucleated RBC 0 10^3/uL Granulocyte % 71.8 % N 38-83 Lymphocyte % 19.8 % Low 25-47 Monocyte % 6.2 % N 1-9 Eosinophil % 1.5 % N 0-6 Basophil % 0.7 % N 0-2 Nucleated Red Blood Cells % 0.1 Comprehensive Metabolic Prof 11/21/2016 [facility] Sodium 140 mEq/L 134-149 Potassium 4.2 mEq/L [...] >60 ml/min/1.73m^ >=60 Laboratory test finding 11/21/2016 [facility] Free T4 1.11 ng/dL 0.75-1.54 TSH 3.26 mIU/L 0.50-6.00 Free T3 3.57 pg/mL 2.00-4.90 CBC Electronic (a) 11/21/2016 [facility] WBC 11.1 High 3.6-9.6 (607)- - RBC 5.42 3.90-5.70 Hemoglobin (Fma/[facility]/CTX) 15.2 g/dL 12.1 - 17.2 Hematocrit (Fma/CMC/CTX) 45.7 % 36.1 - 50.3 Platelets 327 10^3/ul 150-400 Lymph% 22.5 % 17.0-48.0 Mixed% 5.2 Neutrophils % 72.3 Mean Corpuscular Vol 84 82.2-97.4 Mean Corpuscular Hemoglobin 28.1 27.6-33.3 Mean Corpuscular Hemo Concen 33.3 32.0-36.0 RDW 14.4 High 11.6-13.7 Mean Platelet Volume 6.8 5.5-11.0 1 [place] Severe Sepsis and Septic Shock Management Bundle Measure requires all lactic acids initially measuring >2.0 mmol/L be repeated. 2 Because ethnic data is not always readily [...] 15-29 5 Kidney failure <15 (or dialysis) 3 1sst 4 Negative <1:80 Borderline 1:80 Positive >1:80 5 A positive JOSE result may occur in healthy individuals (low titer) or be associated with a variety of diseases. See interpretation chart which is not all inclusive: Pattern Antigen Detected Suggested Disease Association Homogeneous DNA(ds,ss), SLE - High titers Nucleosomes, Histones Drug-induced SLE Speckled Sm, SUPERVISOR BLAST FURNACE, SCL-70, SLE,MCTD,PSS (diffuse form), SS-A/SS-B Sjogrens Nucleolar SCL-70, PM-1/SCL High titers Scleroderma, PM/DM Centromere Centromere PSS (limited form) w/Crest syndrome variable Nuclear Dot Sp100,[id number] Primary Biliary Cirrhosis Nuclear GP210, Primary Biliary Cirrhosis Membrane gerri A,B,C 6 SEE RESULT BELOW Name: RAMANA GARCIA : [address]: Mason Burch MD Acct: [id number] Unit: [id number] AGE: 47 Location: [facility] Re08/15/17 SEX: F Status: REG REF SPEC: [id number] LYLA: 08/15/17-[address] [facility] [address]: Mason Burch MD REQ: [id number] RECD: 08/15/17 STATUS: COMP _ SOURCE: URINE SPDESC: ORDERED: Urine Culture COMMENTS: 1 urine mohan tube [id number] Urine Source: Random Procedure Result Reported Site Urine Culture Final 08/17/17- 0731 ML No growth of clinically significant organisms * ML - MAIN LAB (PSC1) . END OF REPORT * ML=Testing performed at Main Lab DEPARTMENT OF PATHOLOGY, [address] [place] [address] Shantanu Sandy M.D. Director [facility] # [id number] 7 *Ascorbic acid is present which may interfere with detection of blood. 8 <5.0 Negative 5.0 - 25.0 Indeterminate (Repeat testing recommended after 72 hours) >25.0 Positive Perimenopausal women can display HCG levels of up to 20 mIU/mL 9 Because ethnic data is not always readily [...] 15-29 5 Kidney failure <15 (or dialysis) Procedures Date Code Description Status 10/14/2018 99100891 Colonoscopy Completed Encounters Type Date Location Provider Dx Diagnosis Office Visit 03/21/2018 Main Office JAVIER Kessler M25.541 Pain in joints of 9:45a right hand M25.542 Pain in joints of left hand M79.671 Pain in right foot Office Visit 11/01/2017 11:40a Main Office Mason Luke L03.115 Cellulitis of MD Kiersten right lower limb Office Visit 08/15/2017 11:10a Main Office Mason Luke R30.0 Dysuria MD Kiersten Office Visit 03/08/2017 1:45p Main Office JAVIER Kessler M25.572 Pain in left ankle and joints of left foot Office Visit 11/21/2016 1:30p Main Office JAVIER Kessler I10 Essential (primary) hypertension Plan of Treatment Future Appointment(s):04/15/2019 9:30 am - Robina Chauhan M.D. at [facility] [id number]/14/2018 - Robina Chauhan M.D.Z00.01 Encounter for general adult medical examination with abnormaNew Labs:CBC Electronic-[facility], Ordered: Comp Metabolic-[facility], Ordered: 10/14/18Lipid Panel-[facility] , Ordered: 10/14/18Ua - Non Micro (Fma), Ordered: 10/14/18TSH (Fma/[facility]) , Ordered: 10/14/18Comments:Encourage an active and healthy lifestyle with proper eating habits including fruits, vegetables, 6-8 glasses of water a day and monitoring portion size. Recommend 30 minutes of daily physical activityincluding walking, aerobic exercise, sports, yoga or dance. Any activity is better than no activity.Recommend routine eye and dental exams. Next physical is due in 1-2 years.Follow up:nqdkzcrS49.9 Obesity, unspecifiedNew Labs:Comp Metabolic-[facility], Ordered: 10/14/18Lipid Panel -[facility], Ordered: 10/14/18Hemoglobin A1c (Fma), Ordered: Comments:Counseled on heart healthy diet such as Mediterranean diet. Eat protein and vegetables first then carbohydrates last. Get at least 150 minutes of moderate aerobic activity or 75 minutes of vigorous aerobic activity a week, or a combination of moderate and vigorous activity. General goal of 30 minutes of physical activity a day. consider [id number] Essential (primary) hypertensionComments:The patient will continue to monitor blood pressure and let me know the blood pressure results if there are readings persistently above 140/90. Goal blood pressure is less than 130/80. Recommend low salt/cardiac diet such as the Mediterranean diet and routine exercise at least 30 minutes a day.Follow up:6 tnzvncY20.50 Arthropathic psoriasis, unspecifiedComments:seeing Dr CamposZ12.31 Encounter for screening mammogram for malignant neoplasm ofComments:refer for ecipxmrtiY38.11 Encounter for screening for malignant neoplasm of colonComments:counseled on colon cancer screening; states done, obtain iujicmqM57.9 Acute upper respiratory infection, unspecifiedNew Medication :Amoxicillin/Clavulanate Potassium 500-125 mg - 1 by mouth twice a day x 7 daysComments:patient agrees to call if symptoms worsen advised if worsening dental issue needs to see uvtpdczE07.0 Fatty (change of) liver, not elsewhere classifiedComments:discussed diet and exerciseAllComments:Medication Management Patient Understands medications she's taking? Yes No Are there Barriers to Adherence? Yes No Has the patient been asked about herbal supplements and therapies, and OTC meds? Yes No
--- OUTSIDE RECORDS SUMMARY | 2018-11-02 10:47 | XMS REPORT | Continuity of Care Document ---
:1970 External Reference #:[id number] Author Name Siobhan Dunham Care Team Providers Name Role Phone Bahman Castillo MD Primary Care Physician Unavailable Payers Date Identification Numbers Payment Provider Subscriber Effective: 2016 Policy Number: [id number] BS [facility] Manasa Garcai PayID: [id number] [address] [address] [place] [address] Effective: 2016 Policy Number: [id number] TST Manasa Garcia Onset: 2016 Group Number: [id number] [address] Group Name: [place] [id number] PayID: [id number] Advance Directives Description No Information Available Problems Active Problems Provider Date Obstructive sleep apnea syndrome Lucy Muniz DNP, RN, Onset: 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 Localized superficial swelling of Ender Campbell MD Onset: 01/28/2018 skin Other specific joint derangements of Ender Campbell MD Onset: 01/28/2018 left wrist, not elsewhere classified Tenosynovitis of hand Ender Campbell MD Onset: 02/18/2018 Family History Date Family Member(s) Observation Comments General maternal grandmother cancer,maternal grandfather heart disease Father Heart Disease Mother Cancer Siblings 1 sister,2 brothers alive and well Social History Type Date Description Comments Sex Unknown Marital Status Lives With 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 day (after finishing the sample pack) Wrist Splint use nightly to 1unkanchan Meehandor, 10/10/2018 Misc help with right M.D. wrist tendonitis Elbow Support W/Encircling [facility] Mason Andres, 10/10/2018 Support help with wrist M.D. Strap/Neoprene/Large /forearm Misc tendonitis Methotrexate take 6 90tabs L40.50 Mason Campos, 09/04/2018 2.5mg Tablets capsules/tablets M.D. by mouth once weekly on Folic Acid take one 90tabs L40.50 Mason Campos, 09/04/2018 1mg Tablets capsule/tablet M.D. daily by mouth Taltz 160 mg (two 80 8units L40.50 Mason Campos, 09/04/2018 80mg/ml Solution mg injections) M.D. Auto-Inject at week 0, followed by 80 mg at weeks 2, 4, 6, 8, 10, and 12, then 80 mg every 4 weeks. Albuterol Sulfate puff every 6 Unknown 09/05/2015 Powder hours as needed Lisinopril 1 by mouth every Unknown 09/05/2015 5mg Tablets day Tremfya Every 2 months [facility], 100mg/ml Chriss Osman MD Syringe Hydrochlorothiazide 1 tab by mouth Unknown 25mg once a day History Medications Tramadol HCL 1-2 tablets by 30tabs Ender Campbell 02/18/2018 - 50mg mouth every 6 hours 06/02/2018 Tablets as needed pain Hydrocodone-Acetamin take 1 tab by mouth 30tabs Ender Campbell, 2017 - ophen every 4-6 hours as 01/27/2018 5-325mg Tablets needed for pain. Potassium 1 tab twice a day Unknown 09/05/2015 - 1000Meq 08/13/2016 Metformin HCL 1 by mouth twice a Unknown 09/05/2015 - 500mg day 08/13/2016 Tablets Ferrous Fumarate 1 tab by mouth 2x Unknown 09/05/2015 - per day 08/13/2016 324mg Tablets Cosentyx inject 2 syringes Unknown 09/05/2015 - 150mg/ml 150ml each every 06/02/2018 Soln Prefill Syringe week Vitamin B-12 1 by mouth every Unknown 09/05/2015 - 1000mcg day 07/13/2016 Tablets Stelara Unknown - 09/05/2015 Medications Administered in Office Medication SIG Qnty Indications Ordering Provider Date Celestone 3 mg and 3mg Ender Campbell MD 02/18/2018 Injection Celestone 3 mg and 3mg Ender Campbell MD 09/20/2017 Injection Celestone 3 mg and 3mg Ender Campbell MD 08/09/2017 Injection Celestone 3 mg and 3mg Ender Campbell MD 03/29/2017 Injection Influenza Virus Vaccine Unknown 03/22/2014 Injection Immunizations Description No Information Available Vital Signs Date Vital Result Comment 10/10/2018 10:58am Height 64 inches 5'4" Weight 278.25 lb Heart Rate 67 /min BP Systolic Sitting 128 mmHg BP Diastolic Sitting 82 mmHg Pain Level 6 O2 % BldC Oximetry 96 % BMI (Body Mass Index) 47.8 kg/m2 09/04/2018 8:58am Height 64 inches 5'4" Weight [...] 16 /min Pain Level 8 left wrist, 12/01 left thumb BMI (Body Mass Index) 50.1 [...] Date Facility Test Result H/L Range Note Laboratory test 10/08/2018 [facility] Rheumatoid < 10 IU/mL N <15 [address] [place] [address] [phone] Uric Acid 5.9 mg/dL N 2.3-6.6 2 CBC Auto Diff 10/08/2018 [facility] White Blood 9.4 10^3/uL N 3.5-10.[address] [place] [address] [phone] Red Blood Count 4.90 10^6/uL High 3.70-4.87 Hemoglobin 13.5 g/dL N 12.0-16.0 Hematocrit 42 % High 33-41 Mean Corpuscular Volume 85 fL N 80-97 Mean Corpuscular Hemoglobin 28 pg N 27-31 Mean Corpuscular HGB Conc 33 g/dL N 31-36 Red Cell Distribution Width 15 % N 10.5-15 Platelet Count 299 10^3/uL N 150-450 Mean Platelet Volume 7.8 fL N 7.4-10.4 Abs Neutrophils 6.8 10^3/uL N 1.5-7.7 Abs Lymphocytes 2.0 10^3/uL N 1.0-4.8 Abs Monocytes 0.4 10^3/uL N 0-0.8 Abs Eosinophils 0.1 10^3/uL N 0-0.6 Abs Basophils 0 10^3/uL N 0-0.2 Abs Nucleated RBC 0 10^3/uL Granulocyte % 72.5 % Lymphocyte % 21.5 % Monocyte % 4.2 % Eosinophil % 1.5 % Basophil % 0.3 % Nucleated Red Blood Cells % 0.1 Comp Metabolic Panel 10/08/2018 [facility] Sodium 135 mmol/L N 135-[address] [place] [address] [phone] Potassium 3.6 mmol/L N 3.5-5.0 Chloride 100 mmol/L Low 101-111 Co2 Carbon Dioxide 24 mmol/L N 22-32 Anion Gap 11 mmol/L N 2-11 Glucose 217 mg/dL High 70-100 Blood Urea Nitrogen 20 mg/dL N 6-24 Creatinine 0.72 mg/dL N 0.51-0.95 BUN/Creatinine Ratio 27.8 High 8-20 Calcium 9.2 mg/dL N 8.6-10.3 Total Protein 7.1 g/dL N 6.4-8.9 Albumin 3.8 g/dL N 3.2-5.2 Globulin 3.3 g/dL N 2-4 Albumin/Globulin Ratio 1.2 N 1-3 Total Bilirubin 0.40 mg/dL N 0.2-1.0 Alkaline Phosphatase 83 U/L N 34-104 Alt 13 U/L N 7-52 Ast 12 U/L Low 13-39 Egfr Non- 85.7 >60 Egfr 103.7 >60 3 Laboratory test 10/08/2018 [facility] Ferritin 115.5 ng/mL N 11-307 [address] [place], [place] [id number] [phone] Smooth Muscle Antibody <pending> Hepatitis 10/08/2018 [facility] Hepatitis A Nonreactive Nonreactive 5 Acute Panel [address] [place] [address] [phone] Hepatitis B Core AB Igm Nonreactive Nonreactive 6 Hepatitis B Surface Ag Nonreactive Nonreactive 7 Hepatitis C Antibody 10/08/2018 [facility] HCV Index 0.[address] [place], [place] [address] [phone] Hepatitis C Antibody Nonreactive Nonreactive Laboratory test 10/08/2018 [facility] Hla B27 <pending> finding [address] [place], [place] [id number] [phone] Xray 06/18/2018 [facility] MRI Upper <pending> [address] [place] [address] W/O [phone] Laboratory test 06/27/2017 [facility] Surgical SEE RESULT 8 , [address] [place] [address] [phone] 1 Please check labs 2 days before follow up 2 Please check labs 2 days before follow up 3 Because ethnic data is not always readily [...] 15-29 5 Kidney failure <15 (or dialysis) 4 Please check labs 2 days before follow up 5 Please check labs 2 days before follow up 6 Please check labs 2 days before follow up 7 Please check labs 2 days before follow up 8 [id number] SEE RESULT BELOW Name: MANASA GARCIA : [address]: Ender Campbell MD Acct: [id number] Unit: [id number] AGE: 47 Location: [facility] Re06/27/17 SEX: F Status: JANINA BENOIT SPEC: [id number] LYLA: 06/27/17-[address]: Ender Campbell MD REQ: [id number] RECD: 06/27/17 STATUS: SOUT _ ORDERED: Isabella, LEVEL 3 COMMENTS: [id number] FINAL DIAGNOSIS Left ulna, excision: -- Benign [...] performed at Main Lab DEPARTMENT OF PATHOLOGY, [address] [place] [address] Shantanu Sandy M.D. Director [facility] # [id number] Procedures Date Code Description Status 02/18/201826594 Inject/Drain Joint/Bursa Small W/O US Completed 09/20/2017 15862 Inject Tendon Sheath Or Ligament Aponeurosis Eg Plantar Completed Fascia 08/09/2017 12957 Inject/Drain Joint/Bursa Small W/O US Completed 06/27/2017 92259 Arthroscopy,Wrist,Diagnostic,Synovectomy,Complete Completed 06/27/2017 84281 Arthroscopy,Wrist,Diagnostic,Synovectomy,Complete Completed 06/27/2017 52587 Unlisted Procedure, Forearm/Wrist Completed 06/27/2017 82323 Unlisted Procedure, Forearm/Wrist Completed 06/27/2017 16054 Osteoplasty Shorten Radius Or Ulna Completed 06/27/2017 83761 Osteoplasty Shorten Radius Or Ulna Completed 03/29/2017 48454 Inject/Drain Joint/Bursa Small W/O US Completed 11/29/2016 87851 Short Arm Cast Application Completed Encounters Type Date Location Provider Dx Diagnosis Office Visit 09/04/2018 Rheumatology Mason Campos, L40.50 Arthropathic 9:00a [facility] psoriasis, unspecified 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 subsequent encounter Office Visit 06/25/2018 8:00a Orthopedic Ender M65.842 Other synovitis Services Of MD Adrian and C.MGermainA. tenosynovitis, left hand M24.832 Ot specific joint derangements of left wrist, NEC Office Visit 06/03/2018 10:00a Gordy Handley S93.601A Unspecified [facility] Et[facility] sprain of right C.M.A. foot, initial encounter Office Visit 03/19/2018 8:45a Gordy Handley M65.842 Other synovitis Services Of MD Adrian and C.M.A. tenosynovitis, left hand Office Visit 02/20/2018 8:30a Orthopedic Ender S93.601A Unspecified [facility] sprain of right C.M.A. foot, initial encounter Office Visit 02/18/2018 11:00a Gordy Handley M65.842 Other synovitis Services Of MD Adrian [...] left wrist, NEC Office Visit 04/26/2017 10:00a Orthopedic Ender S63.592D Other specified Services Of MD Adrian sprain of left C.M.A. wrist, subsequent encounter M18.12 Unil primary osteoarth of first carpometacarp joint, l hand Office Visit 03/29/2017 10:00a Orthopedic Ender M18.12 Unil primary Services Of MD Adrian osteoarth of first C.M.A. carpometacarp joint, l hand S63.592D Other specified sprain of left wrist, subsequent encounter Office Visit 02/15/2017 8:15a Orthopedic Ender S63.592D Other specified Services Of MD Adrian sprain of left C.M.A. wrist, subsequent encounter Office Visit 01/18/2017 9:00a Orthopedic Ender M25.531 Pain in right Services Of MD Adrian wrist C.M.A. Office Visit 12/28/2016 2:30p Orthopedic Ender M25.531 Pain in right Services Of MD [...] of left thumb, subs Office 10/17/2016 Orthopedic Shayla S63.641D Sprain of Visit 10:00a Services Of [facility], metacarpophalangeal C.M.A. RPA-C joint of right thumb, subs S63.642D Sprain of metacarpophalangeal joint of left thumb, subs Office 09/24/2016 Orthopedic Ingrid S63.642A Sprain of Visit 9:30a Services Of [facility] Funk metacarpophalangeal C.M.A. joint of left thumb, init S63.642A Sprain of metacarpophalangeal joint of left thumb, init Office Visit 09/06/2015 Pulmonology And Lucy G47.33 Obstructive sleep 8:00a Sleep Services Of KARON Muniz, RN, apnea (adult) [facility] (pediatric) E66.01 Morbid (severe) obesity due to excess calories Office Visit 10/15/2014 Pulmonology And Lucy 327.23 Obstructive Sleep 1:00p Sleep [facility] KARON Muniz RN, Apnea Adult & [facility] Pediatric Plan of Treatment Future Appointment(s):12/19/2018 11:40 am - Mason Campos M.D. 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
[2018-11-02 10:55] VITALS: BP 134/80
--- NOTE | 2018-11-02 10:56 | UC ---
Dental HPI - HPI Summary HPI Summary: 48 -year-old female who has some decayed teeth. Her distal right lower molar has a hole in the lateral side of it which she got some food stuck in last evening. She states she was able to wash it out but then her tooth became quite tender and painful today. She's had no fever or chills. - History of Current Complaint Chief Complaint: UCDentalProblem Stated Complaint: TOOTH PAIN Time Seen by Provider: 11/02/18 10:55 Hx Obtained From: Patient Hx Last Menstrual Period: HYSTERECTOMY ?: No Onset/Duration: Gradual Onset Severity: Moderate Pain Intensity: 10 Aggravating Factor(s): Chewing Alleviating Factor(s): Nothing Related History: Other - Several dental caries - Allergies/Home Medications Allergies/Adverse Reactions: Allergies Allergy/AdvReac Type Severity Reaction Status Date / Time amitriptyline Allergy TIGHTNESS Verified 11/02/18 10:50 TO CHEST AND SOB clindamycin Allergy TIGHTNESS Verified 11/02/18 10:50 TO CHEST AND SOB codeine Allergy TIGHTNESS Verified 11/02/18 10:50 TO CHEST AND SOB, ALSO SWELLIN GOF TONGUE erythromycin base Allergy TIGHTNESS Verified 11/02/18 10:50 TO CHEST AND SOB Home Medications: Home Medications Apremilast [Otezla] 30 mg PO DAILY WITH MEAL 11/02/18 [History Confirmed ] Folic Acid TAB* [Folvite TAB*] 1 mg PO DAILY WITH MEAL 11/02/18 [History Confirmed 11/02/18] Methotrexate TAB* 15 mg PO WEEKLY 11/02/18 [History Confirmed 11/02/18] PMH/Surg Hx/FS Hx/Imm Hx Previously Healthy: Yes - Surgical History Surgical History: Yes Surgery Procedure, Year, and Place: Cholecystectomy, PARTIAL HYSTERECTOMY, Lithotripsy- left; X 3; Polyp removed from uterus prior to hysterectomy;. Lt WRIST/ ARM WITH A PLATE Dr. Castorena - Family History Known Family History: Positive: None, Unknown, Hypertension - parents Negative: Diabetes - Social History Alcohol Use: None Substance Use Type: None Smoking Status (MU): Never Smoked Tobacco Review of Systems All Other Systems Reviewed And Are Negative: Yes ENT: Positive: Dental Pain - Right lower distal molar has a hole in the lateral side of it. She states the tooth is quite painful with chewing. Is Patient Immunocompromised?: No Physical Exam Triage Information Reviewed: Yes Appearance: Well-Appearing, No Pain Distress, Well-Nourished Vital Signs: Initial Vital Signs Temp 98.4 F 11/02/18 10:45 Pulse 86 11/02/18 10:45 Resp 20 11/02/18 10:45 BP 134/80 11/02/18 10:45 Pulse Ox 96 11/02/18 10:45 Vital Signs Reviewed: Yes Dental: Positive: Percussion Tenderness @ - Right lower distal molar, Gross Decay/Caries @ - Patient has numerous dental caries. She has a hole on the lateral side of the right distal molar. I do not see any swelling of the gumline, no erythema, no abscess formation. Neck: Positive: Supple, Nontender, No Lymphadenopathy Psychological Exam: Normal Dental Complaint Course/Dx - Course Course Of Treatment: Patient was agreeable to receiving an injection of Toradol 30 mg IM for pain. She is to continue on Tylenol every 4 hours. I'm going to start her on cephalexin 500 mg by mouth 3 times a day for 10 days. She is to call her dentist in the morning and make an appointment to be seen this week. The patient has numerous dental caries however no specific abscess formation today. - Differential Dx/Diagnosis Provider Diagnosis: Toothache Discharge - Sign-Out/Discharge Documenting (check all that apply): Patient Departure All imaging exams completed and their final reports reviewed: No Studies - Discharge Plan Condition: Fair Disposition: HOME Prescriptions: Cephalexin CAP* [Keflex 500 CAP*] 500 mg PO TID 10 Days #30 cap Patient Education Materials: Toothache (ED) Referrals: Robina Chauhan MD [Primary Care Provider] - Additional Instructions: Take Tylenol for pain every 4 hours as needed. Definite follow-up with your dentist over the next few days call tomorrow to make an appointment. - Billing Disposition and Condition Condition: FAIR Disposition: Home - Attestation Statements Provider Attestation: I was available for consult. This patient was seen by the [facility]. The patient was not presented to, seen by, or examined by me. -Jay
[2018-11-02] MEDS ORDERED: Ketorolac INJ* 30 MG/ML 1 ML VIAL IM ONE (11:15)
== END 2018-11-02 11:38 | disposition home or self-care (01) ==
LOC: UCEAST 10:40
DX: K08.89 Other specified disorders of teeth and supporting structures (principal); K02.9 Dental caries, unspecified; Z88.3 Allergy status to other anti-infective agents; Z88.5 Allergy status to narcotic agent; Z88.8 Allergy status to other drugs, medicaments and biological substances
CPT/HCPCS: 96372; 99212; G0463; J1885

== ENCOUNTER → 2018-12-16 18:59 | Emergency (ER) | payer BC, OTHER ==
[~2018-12-16 18:59] MED LIST changes: -Buffered Lidocaine 0.9% SYRIN* 5 ML/SYR SYRINGE INTRADERM ONE; +Ciproflox/Dexameth OTIC.SUSP* 7.5 ML BTL RIGHT EAR ONE; -Dexamethasone IV* 4 MG/ML 1 ML (4 MG) IV SLOW PU ONE; -Famotidine IV* 10 MG/ML 2 ML (20 mg) IV ONE; -Levalbuterol 0.63MG/3ML NEB* UNIT OF USE INH ONE; +oxyCODONE TAB* 5 MG TAB PO ONE
--- OUTSIDE RECORDS SUMMARY | 2018-12-16 19:28 | XMS REPORT | Continuity of Care Document ---
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 Robina Chauhan MD Primary Care Physician Unavailable Payers Date Identification Numbers Payment Provider Subscriber Policy Number: [id number] Of [place] Manasa Garcia PayID: [id number] [address] [address] [place] [address] Problems Active Problems Provider Date Essential hypertension RALPH Spangler Onset: 11/28/2015 Type 2 diabetes mellitus RALPH Spangler Onset: 11/28/2015 Anemia due to chronic blood loss RALPH Spangler Onset: 11/28/2015 Asthma without status asthmaticus Kathy Mccord PA-C Onset: 2018 Melena Kathy Mccord PA-C Onset: 11/03/2018 Abdominal pain Kathy Mccord PA-C Onset: 11/03/2018 Constipation Kathy Mccord PA-C Onset: 11/03/2018 Diarrhea Kathy Mccord PA-C Onset: 11/03/2018 Social History Type Date Description Comments Sex Unknown ETOH Use Denies alcohol use Tobacco Use Start: Unknown Patient has never smoked Smoking Status Reviewed: 11/03/18 Patient has never smoked Allergies, Adverse Reactions, Alerts Active Allergies Reaction Severity Comments Date Clindamycin 11/28/2015 Erythromycin 10/20/2018 Codeine 11/28/2015 Oranges 10/20/2018 Amitriptyline 11/28/2015 Peppers 10/20/2018 Tomatoes 10/20/2018 Medications Active Medications SIG Qnty Indications Ordering Provider Date Lisinopril Take 1 Tablet By 30tabs Narcisa Joseph [employer] 11/21/2016 5mg Tablets Mouth Once Daily Albuterol Sulfate Unknown (2.5mg/3ML) 0.083% Nebulizer Triamterene/Hydrochlor Unknown othiazide 37.5-25mg Tablets Ventolin HFA Unknown 108(90Base) mcg/Act Aerosol Methotrexate 6 tablets every Unknown 2.5mg Saturday. 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 Rec Cosentyx Sensoready Pen Unknown - 150mg/ml 11/03/2018 Solution Auto-Inject Lisinopril Unknown - 5mg Tablets 11/03/2018 Megestrol Acetate Unknown - 40mg Tablets 11/03/2018 Potassium Chloride ER Unknown - 10Meq Tablets 11/03/2018 ER Metformin HCL Unknown - 1000mg Tablets 11/03/2018 Ventolin HFA take 1-2 Unknown - 108(90Base) mcg/Act puffs inhaled 11/03/2018 Aerosol every 4 hours as needed for wheezing or tightness in the chest Triamterene/Hydrochlorothia Take 1 Tablet 30tabs Narcisa Joseph, GABBIE - zide By Mouth Once 11/03/2018 37.5-25mg Tablets Daily Immunizations CPT Code Status Date Vaccine Lot # [id number] Given 10/14/2018 Tetanus, Diphtheria Toxoids/Acellular Pertussis Vaccine 7 Or > Vital Signs Date Vital Result Comment 11/03/2018 2:07pm Height 64 inches 5'4" Weight 284.00 lb BP Systolic 151 mmHg BP Diastolic 93 mmHg Heart Rate 77 /min BMI (Body Mass Index) 48.7 kg/m2 11/28/2015 8:41am Height 64 inches 5'4" Weight 280.00 lb BMI (Body Mass Index) 48.1 kg/m2 Results Test Date Facility Test Result H/L Range Note SOB X 3 (Gai) 11/19/2018 [facility] SOB 1St Sample NEG [address] (Gai) [place], [place] [id number] [phone] SOB 2ND Sample (Ga) NEG SOB 3RD Sample (Ks) NEG Laboratory test 11/13/2018 [facility] Clotest SEE RESULT 1 finding BELOW CBC W/Auto 11/03/2018 [facility] White Blood 11.9 3/UL High 4.8-1 Differential(!) [address] Count Ser 0.8 [place] [address] Auto CNT [phone] RBC Red Blood Count 4.49 X106/UL 4.20-6.20 Hemoglobin Blood 12.8 g/dL 12.0-18.0 Hematocrit 39.3 % 35-52 MCV (Corpuscular Volume) 87.6 FL 79-97 MCH (Corpuscular Hemoglobin) 28.4 pg 27-31 MCHC (Corpuscular Hemog Conc) 32.5 g/dL 32.0-36.0 RDW 16.1 % High 10.5-15.0 Platelet Count Blood Auto CNT 323 X103/UL 150-450 MPV 6.8 FL Low 7.4-10.4 Lymph% 23.9 % 20.0-45.0 Burleson% 10.9 % High 1.0-9.0 Neutrophil % 65.2 % 38.0-83.0 Absolute Lymphocytes 2.8 X103/UL 1.0-4.8 Absolute Monocytes 1.3 X103/UL High 0.0-0.8 Absolute Neutrophils 7.8 X103/UL High 1.5-7.7 CBC Auto Diff 08/20/2018 N2N/CCD Import White Blood Count 10.0 10^3/uL 3.5-10.8 Red Blood Count 4.81 10^6/uL 4-5.4 Hemoglobin 13.2 g/dL 12-16 Hematocrit 40 % 35-47 Mean Corpuscular Volume 84 fL 80-97 Mean Corpuscular Hemoglobin 28 pg 27-31 Mean Corpuscular HGB Conc 33 g/dL 31-36 Red Cell Distribution Width 15 % 10.5-15 Platelet Count 313 10^3/uL 150-450 Mean Platelet Volume 7.3 fL Low 7.4-10.4 Abs Neutrophils 6.8 10^3/uL 1.5-7.7 Abs Lymphocytes 2.4 10^3/uL 1-4.8 Abs Monocytes 0.6 10^3/uL 0-0.8 Abs Eosinophils 0.2 10^3/uL 0-0.6 Abs Basophils 0.1 10^3/uL 0-0.2 Abs Nucleated RBC 0 10^3/uL Granulocyte % 68.1 % Lymphocyte % 23.5 % Monocyte % 6.3 % Eosinophil % 1.5 % Basophil % 0.6 % Nucleated Red Blood Cells % 0.1 1 Lab Results 08/20/2018 N2N/CCD Import Lactic Acid 1.0 mmol/L 0.5-2 2 Comp Metabolic Panel 08/20/2018 N2N/CCD Import Sodium 136 mmol/L 135- 145 Potassium 3.6 mmol/L 3.5-5 Chloride 102 mmol/L 101-111 Co2 Carbon Dioxide 25 mmol/L 22-32 Anion Gap 9 mmol/L 2-11 Glucose 102 mg/dL High 70-100 Blood Urea Nitrogen 15 mg/dL 6-24 Creatinine 0.71 mg/dL 0.51-0.95 BUN/Creatinine Ratio 21.1 1 High 8-20 Calcium 9.0 mg/dL 8.6-10.3 Total Protein 7.6 g/dL 6.4-8.9 Albumin 3.8 g/dL 3.2-5.2 Globulin 3.8 g/dL 2-4 Albumin/Globulin Ratio 1.0 1 1-3 Total Bilirubin 0.40 mg/dL 0.2-1 Alkaline Phosphatase 72 U/L 34-104 Alt 10 U/L 7-52 Ast 12 U/L Low 13-39 Egfr Non- 87.1 1 Egfr 105.4 1 3 Lab Results 08/20/2018 N2N/CCD Import Magnesium 1.9 mg/dL 1.9-2.7 Amylase 24 U/L Low 29-103 Lipase 14 U/L 11-82 C Reactive Protein 42.28 mg/L High CBC Auto Diff 08/14/2017 N2N/CCD Import White Blood 11.6 10^3/uL High 3.5 -10.8 Count Red Blood Count 4.89 10^6/uL 4-5.4 Hemoglobin 13.7 g/dL 12-16 Hematocrit 41 % 35-47 Mean Corpuscular Volume 85 fL 80-97 Mean Corpuscular Hemoglobin 28 pg 27-31 Mean Corpuscular HGB Conc 33 g/dL 31-36 Red Cell Distribution Width 15 % 10.5-15 Platelet Count 257 10^3/uL 150-450 Mean Platelet Volume 8 um3 7.4-10.4 Abs Neutrophils 8.4 10^3/uL High 1.5-7.7 Abs Lymphocytes 2.3 10^3/uL 1-4.8 Abs Monocytes 0.7 10^3/uL 0-0.8 Abs Eosinophils 0.2 10^3/uL 0-0.6 Abs Basophils 0.1 10^3/uL 0-0.2 Abs Nucleated RBC 0 10^3/uL Granulocyte % 71.8 % 38-83 Lymphocyte % 19.8 % Low 25-47 Monocyte % 6.2 % 1-9 Eosinophil % 1.5 % 0-6 Basophil % 0.7 % 0-2 Nucleated Red Blood Cells % 0.1 1 Comp Metabolic Panel 08/14/2017 N2N/CCD Import Sodium 135 mmol/L 133- 145 Potassium 3.5 mmol/L 3.5-5 Chloride 99 mmol/L Low 101-111 Co2 Carbon Dioxide 27 mmol/L 22-32 Anion Gap 9 mmol/L 2-11 Glucose 99 mg/dL 70-100 Blood Urea Nitrogen 14 mg/dL 6-24 Creatinine 0.73 mg/dL 0.51-0.95 BUN/Creatinine Ratio 19.2 1 8-20 Calcium 9.3 mg/dL 8.6-10.3 Total Protein 7.2 g/dL 6.4-8.9 Albumin 3.6 g/dL 3.2-5.2 Globulin 3.6 g/dL 2-4 Albumin/Globulin Ratio 1.0 1 1-3 Total Bilirubin 0.50 mg/dL 0.2-1 Alkaline Phosphatase 89 U/L 34-104 Alt 16 U/L 7-52 Ast 16 U/L 13-39 Egfr Non- 84.7 1 Egfr 109.0 1 4 Lab Results 08/14/2017 N2N/CCD Import Lipase 14 U/L 11-82 HCG < 0.60 mIU/mL 5 Inr/Protime 08/14/2017 N2N/CCD Import Inr 0.90 1 0.77-1.02 Lab Results 08/14/2017 N2N/CCD Import Partial 21.1 s Low 26-36.3 Thrombo Time PTT Laboratory test 01/13/2016 [facility] Clotest SEE RESULT 6 finding BELOW Laboratory test 01/13/2016 [facility] Surgical SEE RESULT 7 finding Interface BELOW Order SOB X 3 (Gai) 12/05/2015 [facility] SOB 1St NEG [address] Sample (Gai) [place] [address] [phone] SOB 2ND Sample (Gai) NEG SOB 3RD Sample (Ksi) NOT SUBMITTED CBC No Diff 10/18/2015 [facility] Hematocrit <pending> Hemoglobin Blood <pending> Platelet Count Blood Auto CNT <pending> RBC Red Blood Count <pending> RDW <pending> White Blood Count Ser Auto CNT <pending> MCH (Corpuscular Hemoglobin) <pending> MCHC (Corpuscular Hemog Conc) <pending> MPV <pending> MCV (Corpuscular Volume) <pending> CBC No Diff 10/18/2015 [facility] Hematocrit <pending> Hemoglobin Blood <pending> Platelet Count Blood Auto CNT <pending> RBC Red Blood Count <pending> RDW <pending> White Blood Count Ser Auto CNT <pending> MCH (Corpuscular Hemoglobin) <pending> MCHC (Corpuscular Hemog Conc) <pending> MPV <pending> MCV (Corpuscular Volume) <pending> Laboratory test 09/01/2015 [facility] Hemoglobin A1c (!) <pending> finding CMP(!) 09/01/2015 [facility] Sodium(!) <pending> Potassium(!) <pending> Chloride Serum/Plasma(!) <pending> Carbon Dioxide Ser/Plasm(!) <pending> BUN - Urea Nitrogen(!) <pending> Calcium Ser/Plasma Mass/Vol(!) <pending> Creatinine Serum Mass/Vol(!) <pending> Glucose Serum(!) <pending> Uric Acid Ser/Plas Mass/Vol(!) <pending> BUN/Creatinine Ratio(!) <pending> Albumin Serum/Plasma(!) <pending> Alkaline Phosphatase(!) <pending> Bilirubin Total Mass/Vol(!) <pending> Ast - Sgot <pending> Alt - SGPT <pending> Protein Total <pending> Lipid Panel(!) 09/01/2015 [facility] Cholesterol Total <pending> Mass/Vol(!) HDL Cholesterol Mol/Vol <pending> 30-85 Triglycerides Ser/Plas(!) <pending> LDL Cholesterol Mass/Vol(!) <pending> CBC W/Auto 09/01/2015 [facility] White Blood <pending> Differential(!) Count Ser Auto CNT RBC Red Blood Count <pending> Hemoglobin Blood <pending> Hematocrit <pending> MCV (Corpuscular Volume) <pending> MCH (Corpuscular Hemoglobin) <pending> MCHC (Corpuscular Hemog Conc) <pending> RDW <pending> Platelet Count Blood Auto CNT <pending> MPV <pending> Lymph% <pending> Burleson% <pending> Neutrophil % <pending> Absolute Lymphocytes <pending> Absolute Monocytes <pending> Absolute Neutrophils <pending> Celiac Panel! 07/09/2015 [facility] Endomysial AB QN <pending> Serum Transglutaminase 07/09/2015 [facility] Transglutaminase AB <pending> Iga/Igg Iga Transglutaminase AB Igg <pending> Gliadin Igg/Iga AB 07/09/2015 [facility] Gliadin Iga <pending> Gliadin Igg <pending> CBC W/Auto 06/21/2015 [facility] White Blood <pending> Differential(!) Count Ser Auto CNT RBC Red Blood Count <pending> Hemoglobin Blood <pending> Hematocrit <pending> MCV (Corpuscular Volume) <pending> MCH (Corpuscular Hemoglobin) <pending> MCHC (Corpuscular Hemog Conc) <pending> RDW <pending> Platelet Count Blood Auto CNT <pending> MPV <pending> Lymph% <pending> Burleson% <pending> Neutrophil % <pending> Absolute Lymphocytes <pending> Absolute Monocytes <pending> Absolute Neutrophils <pending> Iron/Uibc/Tibc/%Sat 06/21/2015 [facility] Iron-Total <pending> Iron-Uibc <pending> Iron Binding Capacity Mass/Vol <pending> % Iron Saturation <pending> Laboratory test 06/21/2015 [facility] Ferritin Ser/Plas <pending> finding Mass/Vol(!) 1 SEE RESULT BELOW Name: MANASA GARCIA : [address]: James Barros DO Acct: [id number] Unit: [id number] AGE: 48 Location: ENDO Re11/13/18 SEX: F Status: REG REF SPEC: [id number] LYLA: 11/13/[address] [facility] [address]: James Barros DO REQ: [id number] RECD: 11/13/18 STATUS: DEBBIE SALOMON DR: Robina Chauhan MD _ SOURCE: GAS ANTRUM SPDESC: ORDERED: Clotest Procedure Result Reported Site Clotest Final 11/14/18- 851 ML Clotest Negative * ML - [facility] Lab . END OF REPORT DEPARTMENT OF PATHOLOGY, [address] [place] [address] Shantanu Sandy M.D. Director [facility] # [id number] SEE RESULT BELOW Name: MANASA GARCIA : [address]: James Barros DO Acct: [id number] Unit: [id number] AGE: 48 Location: ENDO Re11/13/18 SEX: F Status: REG REF SPEC: [id number] LYLA: 05/ SUBM DR: James Barros DO REQ: [id number] RECD: 11/13/18 STATUS: DEBBIE SALOMON DR: Robina Chauhan MD _ SOURCE: SAMIRA PATE [facility]: ORDERED: Clotest Procedure Result Reported Site Clotest Final 11/14/18- 851 ML Clotest Negative * ML - Main Lab . END OF REPORT DEPARTMENT OF PATHOLOGY, [address] [place] [address] Shantanu Sandy M.D. Director [facility] # [id number] 2 [facility] Severe Sepsis and Septic Shock Management Bundle Measure requires all lactic acids initially measuring >2.0 mmol/L be repeated. 3 Because ethnic data is not always [...] 5 Kidney failure <15 (or dialysis) 4 Because ethnic data is not always readily [...] 15-29 5 Kidney failure <15 (or dialysis) 5 <5.0 Negative 5.0 - 25.0 Indeterminate (Repeat testing recommended after 72 hours) >25.0 Positive Perimenopausal women can display HCG levels of up to 20 mIU/mL 6 SEE RESULT BELOW Name: MANASA GARCIA : [address]: Jason Maddox MD Acct: [id number] Unit: [id number] AGE: 45 Location: [facility] Re01/13/16 SEX: F Status: REG REF SPEC: [id number] LYLA: 01/13/16-[address] [facility] [address]: Jason Maddox MD REQ: [id number] RECD: 01/13/16-145 STATUS: DEBBIE SALOMON DR: Ashley Almaraz MD _ SOURCE: GAS ANTRUM SPDC: ORDERED: Clotest Procedure Result Reported Site Clotest Final 01/14/16- 07 ML Clotest Negative * ML - MAIN LAB ([facility]) . END OF REPORT * ML=Testing performed at Main Lab DEPARTMENT OF PATHOLOGY, [address] [place] [address] Shantanu Sandy M.D. Director [facility] # [id number] 7 SEE RESULT BELOW Name: MANASA GARCIA : [address]: Jason Maddox MD Acct: [id number] Unit: [id number] AGE: 45 Location: ENDO Re01/13/16 SEX: F Status: REG REF SPEC: [id number] LYLA: 01/13/16-[address] [facility] [address]: Jason Maddox MD REQ: [id number] RECD: 01/13/16-7314 STATUS: ЕЛЕНА SALOMON DR: Lianne Almaraz MD _ ORDERED: LEVEL IV FINAL DIAGNOSIS Duodenum, third portion, biopsy: -- Benign small intestinal mucosa with no significant pathologic abnormalities. -- No evidence of villous blunting or increased intraepithelial lymphocytes. CLINICAL HISTORY Simple hysterectomy - right; 3 c-sections; gallbladder - 1994. Indigestion four times per month - TUMS. Weight loss - 20 pounds with exercise POST-OPERATIVE DIAGNOSIS EGD: Larynx normal; esophagus - normal, EG 39 loos; stomach - normal; duodenum - normal appearance. Colonoscopy - normal. Conclusions/Plan: Loose EG otherwise normal EGD. 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 Signed (signature on file) Shilpa Ornelas MD 1530 END OF REPORT * ML=Testing performed at Main Lab DEPARTMENT OF PATHOLOGY, [address] [place] [address] Shantanu Sandy M.D. 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
--- OUTSIDE RECORDS SUMMARY | 2018-12-16 19:28 | XMS REPORT | Continuity of Care Document ---
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 Robina Chauhan MD Primary Care Physician Unavailable Payers Date Identification Numbers Payment Provider Subscriber Policy Number: [id number] Of [facility] Manasa Garcia PayID: [id number] [address] [address] [place] [address] Problems Active Problems Provider Date Essential hypertension [...] Take 1 Tablet By 30tabs Narcisa Joseph NP 11/21/2016 5mg Tablets Mouth Once Daily Albuterol [...] D50.0 Vero Chava, 11/28/2015 - 240gm Solution 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 (Gai) [place] [address] [phone] SOB 2ND Sample (Ga) NEG SOB 3RD Sample () NEG Laboratory test 11/13/2018 [facility] [place]ot[place] SEE RESULT 1 finding BELOW CBC W/Auto 11/03/2018 [facility] White Blood 11.9 3/UL High 4.8-1 Differential(!) [address] Count Ser 0.8 [place] [address] Auto CNT [phone] RBC Red Blood Count 4.49 X106/UL 4.20-6.20 Hemoglobin Blood 12.8 g/dL 12.0-18.0 Hematocrit 39.3 % 35-52 MCV (Corpuscular Volume) 87.6 FL 79-97 MCH (Corpuscular Hemoglobin) 28.4 pg 27-31 MCHC (Corpuscular Hemog Conc) 32.5 g/dL 32.0-36.0 RDW 16.1 % High 10.5-15.0 Platelet Count Blood Auto CNT 323 X103/UL 150-450 MPV 6.8 FL Low 7.4-10.4 Lymph% 23.9 % 20.0-45.0 Wood% 10.9 % High 1.0-9.0 Neutrophil % 65.2 [...] 26-36.3 Thrombo Time PTT Laboratory test 01/13/2016 [facility] [place] SEE RESULT 6 finding BELOW Laboratory test 01/13/2016 [facility] Surgical SEE RESULT 7 finding Interface BELOW Order SOB X 3 (Gai) 12/05/2015 [facility] SOB 1St NEG [address] Sample (Gai) [place] [address] [phone] SOB 2ND Sample (Gai) NEG SOB 3RD Sample (Gai) NOT SUBMITTED CBC No Diff 10/18/2015 [facility] [...] Auto CNT <pending> MPV <pending> Lymph% <pending> Wood% <pending> Neutrophil % <pending> Absolute Lymphocytes <pending> [...] Auto CNT <pending> MPV <pending> Lymph% <pending> Wood% <pending> Neutrophil % <pending> Absolute Lymphocytes <pending> Absolute Monocytes <pending> Absolute Neutrophils <pending> Iron/Uibc/Tibc/%Sat 06/21/2015 [facility] Iron-Total <pending> Iron-Uibc <pending> Iron Binding Capacity Mass/Vol <pending> % Iron Saturation <pending> Laboratory test 06/21/2015 [facility] Ferritin Ser/Plas <pending> finding Mass/Vol(!) 1 SEE RESULT BELOW Name: MANASA GARCIA : [address]: James Barros DO Acct: [id number] Unit: [id number] AGE: 48 Location: ENDO Re11/13/18 SEX: F Status: REG REF SPEC: [id number] LYLA: 11/13/1859 [facility] DR: James Barros DO REQ: [id number] RECD: 11/13/18 STATUS: DEBBIE SALOMON DR: Robina Chauhan MD _ SOURCE: GAS ANTRUM SPDESC: ORDERED: Clotest Procedure Result Reported Site Clotest Final 11/14/18851 ML Clotest Negative * ML - Main Lab . END OF REPORT DEPARTMENT OF PATHOLOGY, [address] [place] [address] Shantanu Sandy M.D. Director [facility] # [id number] SEE RESULT BELOW Name: MANASA GARCIA : [address]: James Barros DO Acct: [id number] Unit: [id number] AGE: 48 Location: ENDO Re11/13/18 SEX: F Status: REG REF SPEC: [id number] LYLA: 11/13/18-[address]: James Barros DO REQ: [id number] RECD: 11/13/18-1025 STATUS: DEBBIE SALOMON DR: Robina Chauhan MD _ SOURCE: SAMIRA PATE [facility]: ORDERED: Clotest Procedure Result Reported Site Clotest Final 11/14/18- 851 ML Clotest Negative * ML - Main Lab . END OF REPORT DEPARTMENT OF PATHOLOGY, [address] [place] [address] Shantanu Sandy M.D. Director [facility] # [id number] 2 [facility] Severe Sepsis and Septic Shock Management Bundle [...] [address]: Jason Maddox MD Acct: [id number] Unit: [id number] AGE: 45 Location: ENDO Re01/13/16 SEX: F Status: REG REF SPEC: [id number] LYLA: 01/13/16-12[address] [facility] [address]: Jason Maddox MD REQ: [id number] RECD: 01/13/16-392 STATUS: DEBBIE SALOMON DR: Ashley Almaraz MD _ SOURCE: GAS ANTRUM SPDESC: ORDERED: Clotest Procedure Result Reported Site Clotest Final 01/14/16- 733 ML Clotest Negative * ML - MAIN LAB ([facility] [facility]) . END OF REPORT * ML=Testing performed at Main Lab DEPARTMENT OF PATHOLOGY, [address] [address] Shantanu Sandy M.D. 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 Signed (signature on file) Shilpa Ornelas MD 1530 END OF REPORT * ML=Testing performed at Main Lab DEPARTMENT OF PATHOLOGY, [address] [place] [address] Shantanu Sandy M.D. 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
--- OUTSIDE RECORDS SUMMARY | 2018-12-16 19:29 | XMS REPORT | Continuity of Care Document ---
:1970 External Reference #:[id number] Author Name Maggie Bryant Care Team Providers Name Role Phone Bahman Castillo MD Primary Care Physician Unavailable Payers Date Identification Numbers Payment Provider Subscriber Effective: 2016 Policy Number: [id number] [employer]ets Manasa Garcia PayID: [id number] [address] [address] [place] [address] Effective: 2016 Policy Number: [id number] TST Manasa Garcia Onset: 2016 Group Number: [id number] [address] Group Name: [place] [address] PayID: [id number] Problems Active Problems Provider Date Obstructive sleep apnea syndrome Lucy Muniz DNP, RN, Onset: 06/28/2011 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 Localized superficial swelling of Ender Campbell MD [...] Unknown Marital Status Lives With Family Occupation [employer] ETOH Use Denies alcohol use Tobacco Use Start: Unknown Patient has never smoked Recreational Drug Use Denies Drug Use Smoking Status Reviewed: 11/18/18 Patient has never smoked Exercise Type/Frequency Exercises sporadically Allergies, Adverse Reactions, Alerts Active Allergies Reaction Severity Comments Date Amitriptyline 10/15/2014 Clindamycin 09/06/2015 Erythromycin 09/24/2016 Codeine 06/12/2017 Medications Active Medications SIG Qnty Indications Ordering Date Provider Otezla take 1 tablet by 90tabs Mason Campos, 10/10/2018 30mg Tablets mouth twice a M.D. day (after finishing the sample pack) Wrist Splint use nightly to 1unkanchan Meehandor, 10/10/2018 Misc help with right M.D. wrist tendonitis Elbow Support W/Encircling [facility] Mason Andres, 10/10/2018 Support help with wrist [...] 5mg Tablets day Tremfya Every 2 months [facility], 100mg/ml Chriss Osman MD Syringe Hydrochlorothiazide 1 tab by mouth Unknown 25mg once a day History Medications Tramadol HCL 1-2 tablets by 30tabs Ender Campbell, 02/18/2018 - 50mg mouth every 6 hours [...] Injection Influenza Virus Vaccine Unknown 03/22/2014 Injection Vital Signs Date Vital Result Comment 11/18/2018 9:45am Height 64 inches 5'4" Weight 274.00 lb Heart Rate 80 /min BP Systolic 126 mmHg BP Diastolic 90 mmHg Respiratory Rate 18 /min Pain Level 4 BMI (Body Mass Index) 47.0 kg/m2 10/10/2018 10:58am Height 64 inches 5'4" Weight [...] Date Facility Test Result H/L Range Note Connective Tissue 10/08/2018 [facility] Anti-Nuclear 0.3 U 1 Panel [address] [place] [address] [phone] Cyclic Citrullinated Peptide 83.3 U Abnormal 2 Interpretation See Comment 3 Laboratory test 10/08/2018 [facility] Rheumatoid Factor < 10 IU/ mL N <15 4 finding [address] [place] [address] [phone] Uric Acid 5.9 mg/dL N 2.3-6.6 5 CBC Auto Diff 10/08/2018 [facility] White Blood 9.4 10^3/uL N 3.5-10.8 [address] [place] [address] [phone] Red Blood Count 4.90 10^6/uL High 3.70-4.87 [...] Cells % 0.1 Comp Metabolic Panel 10/08/2018 [facility] Sodium 135 mmol/L N 135-[address] [place] [address] [phone] Potassium 3.6 mmol/L N 3.5-5.0 Chloride 100 [...] Egfr Non- 85.7 >60 Egfr 103.7 >60 6 Laboratory test 10/08/2018 [facility] Ferritin 115.5 ng/mL N 11-307 [address] [place] [address] [phone] Smooth Muscle Antibody Negative Negative 8 Hepatitis 10/08/2018 [facility] Hepatitis A Nonreactive Nonreactive 9 Acute Panel [address] [place] [address] [phone] Hepatitis B Core AB Igm Nonreactive Nonreactive 10 Hepatitis B Surface Ag Nonreactive Nonreactive 11 Hepatitis C Antibody 10/08/2018 [facility] HCV Index 0.[address] [place] [address] [phone] Hepatitis C Antibody Nonreactive Nonreactive Hla B27 10/08/2018 [facility] Hla B27 Negative [address] [place] [address] [phone] Hla B27 Interp See Comment 13 Xray 06/18/2018 [facility] MRI Upper <pending> [address] Extremity Left [place] [address] W/O [phone] Laboratory test 06/27/2017 [facility] Surgical SEE RESULT 14, [address] Pathology BELOW [place] [address] [phone] 1 REFERENCE VALUE <=1.0 (Negative) 2 Interpretation: Strong Positive (>=60.0) REFERENCE VALUE <20.0 (Negative) 3 RESULT: Compatible with rheumatoid arthritis. Test Performed by: [facility] - [facility] [address] [place] [address] 4 Please check labs 2 days before follow up 5 Please check labs 2 days before follow up 6 Because ethnic data is not always readily [...] 15-29 5 Kidney failure <15 (or dialysis) 7 Please check labs 2 days before follow up 8 ADDITIONAL INFORMATION This test was developed and its performance characteristics determined by [facility] in a manner consistent with CLIA requirements. This test has not been cleared or approved by the U.S. Food and Drug Administration. Test Performed by: [facility] [address] [place] [address] 9 Please check labs 2 days before follow up 10 Please check labs 2 days before follow up 11 Please check labs 2 days before follow up 12 REFERENCE VALUE Not Applicable 13 RESULT: HLA-B27 antigen was not detected. ADDITIONAL INFORMATION Method: Flow Cytometry Performing Laboratory CLIA# [id number] Test Performed by: [facility] - [address] [address] 14 [id number] 15 SEE RESULT BELOW Name: MANASA GARCIA : [address]: Ender Campbell MD Acct: [id number] Unit: [id number] AGE: 47 Location: [facility] Re06/27/17 SEX: F Status: JANINA BENOIT SPEC: [id number] LYLA: 06/27/17-[address]: Ender Campbell MD REQ: [id number] RECD: 06/27/17 STATUS: SOUT _ ORDERED: Isabella, LEVEL 3 COMMENTS: [id number] FINAL DIAGNOSIS Left ulna, excision: -- Benign [...] performed at Main Lab DEPARTMENT OF PATHOLOGY, [address] [place] [address] Shantanu Sandy M.D. Director [facility] # [id number] Procedures Date Code Description Status 11/18/2018 Inject/Drain Joint/Bursa Small W/O US Completed 02/18/2018 Inject/Drain Joint/Bursa Small W/O US Completed 09/20/2017 63296 Inject Tendon Sheath Or Ligament Aponeurosis Eg Plantar Completed Fascia 08/09/2017 Inject/Drain Joint/Bursa Small W/O US Completed 06/27/2017 37021 Arthroscopy,Wrist,Diagnostic,Synovectomy,Complete Completed 06/27/2017 48248 Arthroscopy,Wrist,Diagnostic,Synovectomy,Complete Completed 06/27/2017 11363 Unlisted Procedure, Forearm/Wrist Completed 06/27/2017 74191 Unlisted Procedure, Forearm/Wrist Completed 06/27/2017 60073 Osteoplasty Shorten Radius Or Ulna Completed 06/27/2017 64090 Osteoplasty Shorten Radius Or Ulna Completed 03/29/2017 16486 Inject/Drain Joint/Bursa Small W/O US Completed 11/29/2016 71939 Short Arm Cast Application Completed Encounters Type Date Location Provider Dx Diagnosis Office Visit 10/10/2018 Rheumatology Mason Andres, L40.50 Arthropathic 10:40a Services Of Kimo Rouse psoriasis, unspecified Z79.899 Other terminal gauger (current) drug therapy K76.0 Fatty (change of) liver, not elsewhere classified M67.833 Other specified disorders of tendon, right wrist Office Visit 09/04/2018 Rheumatology Mason L40.50 Arthropathic 9:00a Services Of Kimo Campos M.D. psoriasis, unspecified Z79.899 Other long-term (current) drug therapy M06.4 Inflammatory polyarthropathy L40.9 Psoriasis, unspecified K76.0 Fatty (change of) liver, not elsewhere classified Office Visit 07/03/2018 8:45a Orthopedic Ender S90.31xD Contusion of Services Of Padma Etienne right foot, C.M.A. subsequent encounter Office Visit 06/25/2018 8:00a Gordy Handley M65.842 Other synovitis Services Of MD Adrian and C.MGermainA. tenosynovitis, left hand M24.832 [facility] specific joint derangements of left wrist, NEC Office Visit 06/03/2018 10:00a Gordy Handley S93.601A Unspecified Services Of Padma Etienne sprain of right C.M.A. foot, initial encounter Office Visit 03/19/2018 8:45a Gordy Handley M65.842 Other synovitis Services Of MD Adrian and C.M.A. tenosynovitis, left hand Office Visit 02/20/2018 8:30a Gordy Handley S93.601A Unspecified Services Of Padma Etienne sprain of right C.M.A. foot, initial encounter Office Visit 02/18/2018 11:00a Gordy Handley M65.842 Other synovitis Services Of MD Adrian and C.M.A. tenosynovitis, left hand Office Visit 01/28/2018 1:15p Orthopedic Ender R22.32 Localized Services Of MD Adrian swelling, mass C.M.A. and lump, left upper limb M24.832 Oth specific joint derangements of left wrist, NEC R22.32 Localized swelling, mass and lump, left upper limb Office Visit 11/22/2017 9:00a Gordy Handley M24.832 Ot specific joint Services Of MD Adrian derangements [...] subsequent encounter Office Visit 02/15/2017 8:15a Gordy Urbina3.592D Other specified Services Of MD Adrian sprain [...] S63.641D Sprain of Visit 10:00a Services Of Bitting, metacarpophalangeal C.M.A. RPA-C joint of right thumb, subs S63.642D Sprain of metacarpophalangeal joint of left thumb, subs Office 09/24/2016 Orthopedic Ingrid S63.642A Sprain of Visit 9:30a Services Of Padma Funk metacarpophalangeal C.M.A. joint of left thumb, init S63.642A Sprain of metacarpophalangeal joint of left thumb, init Office Visit 09/06/2015 Pulmonology And Lucy G47.33 Obstructive sleep 8:00a Sleep Services Of KARON Muniz, ISIDRA, apnea (adult) [facility]- (pediatric) E66.01 Morbid (severe) obesity due to excess calories Office Visit 10/15/2014 Pulmonology And Lucy 327.23 Obstructive Sleep 1:00p Sleep Services Of KARON Muniz RN, Apnea Adult & [facility]- Pediatric Plan of Treatment Future Appointment(s):12/30/2018 9:15 am - Ender Campbell MD at Orthopedic Services Of [facility]12/19/2018 11:40 am - Mason Campos M.D. at Rheumatology [facility]11/18/2018 - Ender Campbell, MDM18.12 Unilateral primary osteoarthritis of first carpometacarpal jFollow up:Follow up: 6 ggrlxV68.312 Trigger thumb, left thumb
--- NOTE | 2018-12-16 19:33 | ED ---
Throat Pain/Nasal Congestion - History of Current Complaint Chief Complaint: EDDentalPain Time Seen by Provider: 12/16/18 19:12 - Allergies/Home Medications Allergies/Adverse Reactions: Allergies Allergy/AdvReac Type Severity Reaction Status Date / Time amitriptyline Allergy TIGHTNESS Verified 11/05/18 09:01 TO CHEST AND SOB clindamycin Allergy TIGHTNESS Verified 11/05/18 09:01 TO CHEST AND SOB codeine Allergy TIGHTNESS Verified 11/05/18 09:01 TO CHEST AND SOB, ALSO SWELLIN GOF TONGUE erythromycin base Allergy TIGHTNESS Verified 11/05/18 09:01 TO CHEST AND SOB PMH/Surg Hx/FS Hx/Imm Hx Endocrine/Hematology History: Denies: Hx Diabetes, Hx Thyroid Disease Cardiovascular History: Reports: Hx Hypercholesterolemia, Hx Hypertension - ON MEDICATION FOR Denies: Hx Pacemaker/ICD Respiratory History: Reports: Hx Asthma - PRN INHALER, Hx Sleep Apnea - current CPAP user Denies: Hx Chronic Obstructive Pulmonary Disease (COPD) GI History: Reports: Other GI Disorders - Obesity Denies: Hx Ulcer History: Reports: Hx Kidney Stones - LAST 6-7 YRS AGO Musculoskeletal History: Reports: Hx Arthritis - LEFT HAND Sensory History: Reports: Hx Contacts or Glasses - READING GLASSES, Other Sensory Impairments - Psoriasis Denies: Hx Hearing Aid Opthamlomology History: Reports: Hx Contacts or Glasses - READING GLASSES, Other Sensory Impairments - Psoriasis Neurological History: Reports: Hx Migraine - 2 TIMES PER MONTH- TREATS WITH REST AND IBUPROFEN, Other Neuro Impairments/Disorders - Sleep disorder Psychiatric History: Reports: Hx Depression - HX OF IN THE PAST Denies: Hx Panic Disorder - Surgical History Surgery Procedure, Year, and Place: Cholecystectomy, PARTIAL HYSTERECTOMY, Lithotripsy- left; X 3; Polyp removed from uterus prior to hysterectomy;. Lt WRIST/ ARM WITH A PLATE Dr. Castorena Hx Anesthesia Reactions: No Infectious Disease History: No Infectious Disease History: Denies: Hx Clostridium Difficile, Hx Hepatitis, Hx Human Immunodeficiency Virus (HIV), Hx of Known/Suspected MRSA, Hx Shingles, Hx Tuberculosis, Hx Known/ Suspected VRE, Hx Known/Suspected VRSA, History Other Infectious Disease, Traveled Outside the [place] in Last 30 Days - Family History Known Family History: Positive: None, Unknown, Hypertension - parents Negative: Diabetes - Social History Alcohol Use: None Substance Use Type: Reports: None Smoking Status (MU): Never Smoked Tobacco Physical Exam Vital Signs On Initial Exam: Initial Vitals Temp Pulse Resp BP Pulse Ox 98.5 F 90 18 173/103 94 12/16/18 19:03 12/16/18 19:03 12/16/18 19:03 12/16/18 19:03 12/16/18 19:03 Diagnostics - Vital Signs Vital Signs Temp Pulse Resp BP Pulse Ox 12/16/18 19:03 98.5 F 90 18 173/103 94 - Laboratory Lab Statement: Any lab studies that have been ordered have been reviewed, and results considered in the medical decision making process. EENT Course/Dx - Diagnoses Provider Diagnoses: Otitis externa, Pain, dental Discharge - Sign-Out/Discharge Documenting (check all that apply): Patient Departure Patient Received Moderate/Deep Sedation with Procedure: No - Discharge Plan Condition: Stable Disposition: HOME Prescriptions: Oxycodone HCl 5 mg PO Q8H 2 Days #6 tablet MDD 4 tabs Patient Education Materials: Otitis Externa (ED), Toothache (ED) Referrals: Robina Chauhan MD [Primary Care Provider] - Additional Instructions: Take pain medication as directed. You may also alternate ibuprofen 600 mg and Tylenol 650 mg every 3 hours for tooth pain. Apply antibiotic solution in right ear as directed. Follow-up with primary care. Return to the ED for any worsening symptoms. - Billing Disposition and Condition Condition: STABLE Disposition: Home
[2018-12-16 19:53] VITALS: BP 158/107
== END | disposition home or self-care (01) ==
LOC: ED 18:59
DX: K08.89 Other specified disorders of teeth and supporting structures (principal); H60.90 Unspecified otitis externa, unspecified ear; I10 Essential (primary) hypertension; Z79.899 Other long term (current) drug therapy
CPT/HCPCS: 99282; A9270-GY

== ENCOUNTER 2019-02-08 17:27 | Emergency (ER) | payer BC ==
[2019-02-08 18:00] LABS: ABS Eosinophils 0.1 10^3/ul (0-0.6); ABS Lymphocytes 2.1 10^3/ul (1.0-4.8); ABS Monocytes 0.7 10^3/ul (0-0.8); ABS Neutrophils 7.3 10^3/ul (1.5-7.7); Eosinophil % 1.4 %; Hematocrit 42 % (35-47); Hemoglobin 14.2 g/dL (12.0-16.0); Lymphocyte % 20.2 %; Mean Corpuscular HGB Conc 34 g/dL (31-36); Mean Corpuscular Hemoglobin 29 pg (27-31); Mean Corpuscular Volume 87 fL (80-97); Mean Platelet Volume 7.7 fL (7.4-10.4); Platelet Count 296 10^3/uL (150-450); Red Blood Count 4.83 10^6 /uL (3.70-4.87); Red Cell Distribution Width 15 % (10-15); White Blood Count 10.2 10^3/uL (3.5-10.8)
[2019-02-08 18:18] LABS: Albumin/Globulin Ratio 1.1 (1-3); BUN/Creatinine Ratio 19.1 (8-20); C Reactive Protein 64.47 mg/L (<8.01); Calcium 9.3 mg/dL (8.6-10.3); EGFR African American 81.2 (>60); EGFR Non-African American 67.1 (>60); Globulin 3.7 g/dL (2-4); Potassium 3.7 mmol/L (3.5-5.0); Total Bilirubin 0.4 mg/dL (0.2-1.0); Total Protein 7.7 g/dL (6.4-8.9)
[2019-02-08] MEDS ORDERED: Acetaminophen TAB* 325 MG PO ONE (19:08)
--- NOTE | 2019-02-08 19:19 | ED ---
Abdominal Pain/Female - HPI Summary HPI Summary: The patient is a 48 y/o F presenting to [facility] with a chief complaint of gradual onset left back and flank pain radiating into the LLQ starting two weeks ago with onset of urinary symptoms three days ago. She reports that she began to feel lower left back pain that then moved into the left flank and the LLQ, which has been present for the last two weeks. She then developed dysuria and increased urinary frequency three days ago. Her symptoms are aggravated with movement and urination. She denies any myalgia in the lower extremities. The sharp pain is currently rated 8/10 in severity and has not been treated with medications HEBREW CANTOR. She notes hx of obstructive renal calculi about 6 years ago with [place] [facility] PMHx: early DM, HLD, HTN, asthma, sleep apnea, rheumatoid arthritis, cholecystectomy, hysterectomy. Nonsmoker, no EtOH, no substance use. - History of Current Complaint Chief Complaint: EDFlankPain Stated Complaint: ABD AND BACK PAIN PER PT Time Seen by Provider: 02/08/19 19:03 Hx Obtained From: Patient Hx Last Menstrual Period: HYSTERECTOMY ?: No Onset/Duration: Lasting Days - three days of urinary symptoms, Lasting Weeks - two weeks of flank/back pain, Still Present Timing: Constant Severity Initially: Mild Severity Currently: Moderate Pain Intensity: 8 Pain Scale Used: 0-10 Numeric Location: Flank - left Radiates: Yes Radiates to: Back - lower left, LLQ Character: Sharp Aggravating Factor(s): Movement, Other: - urination Alleviating Factor(s): Nothing Associated Signs and Symptoms: Positive: Back Pain, Urinary Symptoms - dysuria, increased frequency Allergies/Adverse Reactions: Allergies Allergy/AdvReac Type Severity Reaction Status Date / Time amitriptyline Allergy TIGHTNESS Verified 02/08/19 17:32 TO CHEST AND SOB clindamycin Allergy TIGHTNESS Verified 02/08/19 17:32 TO CHEST AND SOB codeine Allergy TIGHTNESS Verified 02/08/19 17:32 TO CHEST AND SOB, ALSO SWELLIN GOF TONGUE erythromycin base Allergy TIGHTNESS Verified 02/08/19 17:32 TO CHEST AND SOB Home Medications: Home Medications Metformin HCl 500 mg PO DAILY 02/08/19 [History Confirmed 02/08/19] PMH/Surg Hx/FS Hx/Imm Hx Endocrine/Hematology History: Reports: Hx Diabetes - early signs Denies: Hx Thyroid Disease Cardiovascular History: Reports: Hx Hypercholesterolemia, Hx Hypertension - ON MEDICATION FOR Denies: Hx Pacemaker/ICD Respiratory History: Reports: Hx Asthma - PRN INHALER, Hx Sleep Apnea - current CPAP user Denies: Hx Chronic Obstructive Pulmonary Disease (COPD) GI History: Reports: Other GI Disorders - Obesity Denies: Hx Ulcer History: Reports: Hx Kidney Stones - LAST 6-7 YRS AGO Musculoskeletal History: Reports: Hx Arthritis - LEFT HAND, Hx Rheumatoid Arthritis Sensory History: Reports: Hx Contacts or Glasses - READING GLASSES, Other Sensory Impairments - Psoriasis Denies: Hx Hearing Aid Opthamlomology History: Reports: Hx Contacts or Glasses - READING GLASSES, Other Sensory Impairments - Psoriasis Neurological History: Reports: Hx Migraine - 2 TIMES PER MONTH- TREATS WITH REST AND IBUPROFEN, Other Neuro Impairments/Disorders - Sleep disorder Psychiatric History: Reports: Hx Depression - HX OF IN THE PAST Denies: Hx Panic Disorder - Surgical History Surgical History: Yes Surgery Procedure, Year, and Place: Cholecystectomy, PARTIAL HYSTERECTOMY, Lithotripsy- left; X 3; Polyp removed from uterus prior to hysterectomy;. Lt WRIST/ ARM WITH A PLATE Dr. Water Hx Anesthesia Reactions: No Infectious Disease History: No Infectious Disease History: Denies: Hx Clostridium Difficile, Hx Hepatitis, Hx Human Immunodeficiency Virus (HIV), Hx of Known/Suspected MRSA, Hx Shingles, Hx Tuberculosis, Hx Known/ Suspected VRE, Hx Known/Suspected VRSA, History Other Infectious Disease, Traveled Outside the [place] in Last 30 Days - Family History Known Family History: Positive: Hypertension - parents Negative: Diabetes - Social History Alcohol Use: None Hx Substance Use: No Substance Use Type: Reports: None Hx Tobacco Use: No Smoking Status (MU): Never Smoked Tobacco Review of Systems Positive: Abdominal Pain - LLQ radiating from back Positive: dysuria, frequency - increased, flank pain - left Positive: Other - low left back pain. Negative: Myalgia - in legs All Other Systems Reviewed And Are Negative: Yes Physical Exam - Summary Physical Exam Summary: Appearance: Well-appearing, Well-nourished, lying in bed comfortably Skin: Warm, dry, no obvious rash Eyes: sclera anicteric, no conjunctival pallor ENT: mucous membranes moist, pharynx appears normal Neck: Supple, nontender Respiratory: Clear to auscultation, no signs of respiratory distress Cardiovascular: Normal S1, S2. No murmurs. Normal distal pulses in tibial and radial bilaterally. Abdomen: Soft, nontender, normal active bowel sounds present Musculoskeletal: Normal, Strength/ROM Intact Neurological: A&Ox3, awake and alert, mentation is normal, speech is fluent and appropriate Psychiatric: affect is normal, does not appear anxious or depressed Triage Information Reviewed: Yes Vital Signs On Initial Exam: Initial Vitals Temp Pulse Resp BP Pulse Ox 99 F 88 16 149/101 95 02/08/19 17:29 02/08/19 17:29 02/08/19 17:29 02/08/19 17:29 02/08/19 17:29 Vital Signs Reviewed: Yes Diagnostics - Vital Signs Vital Signs Temp Pulse Resp BP Pulse Ox 02/08/19 17:29 99 F 88 16 149/101 95 - Laboratory Lab Results: Lab Results 02/08/19 02/08/19 02/08/19 Range/Units 17:52 17:52 17:52 WBC 10.2 (3.5-10.8) 10^3/uL RBC 4.83 (3.70-4.87) 10^6 /uL Hgb 14.2 (12.0-16.0) g/dL Hct 42 (35-47) % MCV 87 (80-97) fL MCH 29 (27-31) pg MCHC 34 (31-36) g/dL RDW 15 (10-15) % Plt Count 296 (150-450) 10^3/uL MPV 7.7 (7.4-10.4) fL Neut % (Auto) 70.8 % Lymph % (Auto) 20.2 % Billings % (Auto) 7.2 % Eos % (Auto) 1.4 % Baso % (Auto) 0.4 % Absolute Neuts (auto) 7.3 (1.5-7.7) 10^3/ul Absolute Lymphs (auto) 2.1 (1.0-4.8) 10^3/ul Absolute Monos (auto) 0.7 (0-0.8) 10^3/ul Absolute Eos (auto) 0.1 (0-0.6) 10^3/ul Absolute Basos (auto) 0.0 (0-0.2) 10^3/ul Absolute Nucleated RBC 0.0 10^3/ul Nucleated RBC % 0.0 Sodium 135 (135-145) mmol/L Potassium 3.7 (3.5-5.0) mmol/L Chloride 101 (101-111) mmol/L Carbon Dioxide 26 (22-32) mmol/L Anion Gap 8 (2-11) mmol/L BUN 17 (6-24) mg/dL Creatinine 0.89 (0.51-0.95) mg/dL Est GFR ( Amer) 81.2 (>60) Est GFR (Non-Af Amer) 67.1 (>60) BUN/Creatinine Ratio 19.1 (8-20) Glucose 124 H (70-100) mg/dL Lactic Acid 0.9 (0.5-2.0) mmol/L Calcium 9.3 (8.6-10.3) mg/dL Total Bilirubin 0.40 (0.2-1.0) mg/dL AST 26 (13-39) U/L ALT 26 (7-52) U/L Alkaline Phosphatase 79 (34-104) U/L C-Reactive Protein 64.47 H (<8.01) mg/L Total Protein 7.7 (6.4-8.9) g/dL Albumin 4.0 (3.2-5.2) g/dL Globulin 3.7 (2-4) g/dL Albumin/Globulin Ratio 1.1 (1-3) Lipase 21 (11.0-82.0) U/L Result Diagrams: 02/08/19 17:52 02/08/19 17:52 Lab Statement: Any lab studies that have been ordered have been reviewed, and results considered in the medical decision making process. - Ultrasound Renal US Ultrasound Interpretation Completed By: Radiologist Summary of Ultrasound Findings: Impression: Sonographically normal left kidney. ED physician has reviewed this radiology report. Re-Evaluation - Re-Evaluation First Eval Re-Evaluation Time: 20:37 Comment: We discussed lab and imaging results and plan for discharge. Abdominal Pain Fem Course/Dx - Course Course Of Treatment: Patient is a 48 y/o F with cc of gradual onset left lower back pain that radiates into the left flank and LLQ two weeks ago with sudden development of urinary symptoms, including dysuria and frequency, starting three days ago. Hx of obstructive renal calculi with left lithotripsy. Upon physical exam, the patient exhibits no acute abnormalities. Blood work without significant abnormalities except for elevated CRP at 64.47. UA results consistent with infection with 3+ WBCs, 1+ RBCs, 1+ bacteria, 1+ blood, 1+ leukocyte esterase, and presence of squamous epithelial cells. In the ED course , the patient is administered Tylenol for pain and Keflex for UTI. Renal US is negative for calculi. She is given rx for Keflex with discharge home. She understands and agrees with this plan. - Diagnoses Provider Diagnoses: UTI (urinary tract infection) Discharge - Sign-Out/Discharge Documenting (check all that apply): Patient Departure - Patient will be discharged home. Patient Received Moderate/Deep Sedation with Procedure: No - Discharge Plan Condition: Good Disposition: HOME Prescriptions: Cephalexin CAP* [Keflex CAP*] 500 mg PO QID #20 cap Patient Education Materials: Urinary Tract Infection in Women (ED) Referrals: Robina Chauhan MD [Primary Care Provider] - 3 Days Additional Instructions: Return to the emergency department for any new or worsening symptoms. - Billing Disposition and Condition Condition: GOOD Disposition: Home - Attestation Statements Document Initiated by Naima: Yes Documenting Scribe: Toshia Marcano Provider For Whom Naima is Documenting (Include Credential): Dr. Momo Gallo MD Scribe Attestation: Toshia Stewart scribed for Dr. Momo Gallo MD on 02/09/19 at 0206. Scribe Documentation Reviewed: Yes Provider Attestation: The documentation as recorded by the Toshia boggs accurately reflects the service I personally performed and the decisions made by me, Dr. Momo Gallo MD Status of Scribe Document: Viewed
[2019-02-08 19:24] LABS: Urine Appearance Cloudy; Urine Bacteria 1+ (Absent); Urine Bilirubin Negative (Negative); Urine Blood 1+ (Negative); Urine Color Yellow; Urine Glucose Negative (Negative); Urine Ketones Negative (Negative); Urine Nitrite Negative (Negative); Urine Protein Negative (Negative); Urine Red Blood Cell 1+(3-5/hpf) (Absent); Urine Specific Gravity 1.013 (1.010-1.030); Urine Squamous Epithelial Cell Present (Absent); Urine Urobilinogen Negative (Negative); Urine White Blood Cell 3+(>20/hpf) (Absent)
[2019-02-08] MEDS ORDERED: Cephalexin CAP* 500 MG PO ONE (20:36)
[2019-02-08] MEDS ORDERED: Cephalexin CAP* 500 MG ONE (20:50)
[2019-02-08 20:58] VITALS: BP 126/75
--- NOTE | 2019-02-10 14:30 | PN ---
Progress Note - Progress Note Date of Service: 02/08/19 Note: Urine culture growing 75-100k e. coli susceptible to keflex. No change in treatment needed.
== END 2019-02-08 20:59 | disposition home or self-care (01) ==
LOC: ED 17:27
DX: N39.0 Urinary tract infection, site not specified (principal); E11.9 Type 2 diabetes mellitus without complications; E78.00 Pure hypercholesterolemia, unspecified; I10 Essential (primary) hypertension; Z79.84 Long term (current) use of oral hypoglycemic drugs; Z79.899 Other long term (current) drug therapy; Z88.1 Allergy status to other antibiotic agents; Z88.5 Allergy status to narcotic agent; Z88.8 Allergy status to other drugs, medicaments and biological substances
CPT/HCPCS: 36415; 76775; 80053; 81003; 81015; 83605; 83690; 85025; 86140; 87077; 87086; 87186; 99283; A9270-GY

== ENCOUNTER 2019-02-25 18:11 | Emergency (ER) | payer BC, OTHER ==
--- OUTSIDE RECORDS SUMMARY | 2019-02-25 18:25 | XMS REPORT | Continuity of Care Document ---
:1970 External Reference #:[id number] Author Name Mason Campos M.D. 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 Localized superficial swelling of Ender Campbell MD Onset: 01/28/2018 skin Other specific joint derangements of Ender Campbell MD Onset: 01/28/2018 left wrist, not elsewhere classified Tenosynovitis of hand Ender Campbell MD Onset: 02/18/2018 Social History Type Date Description Comments Sex Unknown ETOH Use Denies alcohol use Tobacco Use Start: Unknown Patient has never smoked Recreational Drug Use Denies Drug Use Smoking Status Reviewed: 02/18/19 Patient has never smoked Exercise Type/Frequency Exercises sporadically Allergies, Adverse Reactions, Alerts Active Allergies Reaction Severity Comments Date Amitriptyline 10/15/2014 Clindamycin 09/06/2015 Erythromycin 09/24/2016 Codeine 06/12/2017 Medications Active Medications SIG Qnty Indications Ordering Date Provider Paraffin use daily for hand 500gm Mason Wax stretching and Padma Campos 9 osteoarthritis m72 Stelara 90 mg sc at weeks 0 1ml 90mg/ml Soln Prefill and 4, then every Padma Campos 9 Syringe 12 weeks thereafter Wrist Splint use nightly to help 1units Mason Misc with right wrist Padma Campos 9 tendonitis Elbow Support Use daily to help 1units Mason W/Encircling Support with wrist /forearm Padma Campos 9 Strap/Neoprene/Large tendonitis Misc Methotrexate Sodium Take 6 Tablets By 90tadeion Virgen Mason 2.5mg Mouth Once A Week Padma Campos 9 Tablets On Folic Acid take one 90tabs [id number] Mason 1mg Tablets capsule/tablet Padma Campos 9 daily by mouth Albuterol Sulfate puff every 6 hours Unknown Powder as needed 6 Lisinopril 1 by mouth every Unknown 5mg Tablets day 6 Hydrochlorothiazide 1 tab by mouth once Unknown 25mg a day 0 History Medications Penicillin V Take one 14tabs Mason Campos, 12/19/2018 - Potassium capsule/tablet by Padma 02/18/2019 500mg mouth twice daily, Tablets avoid Methotrexate while on it Otezla Take 1 Tablet Twice A 90tabs Mason Campos, 10/10/2018 - 30mg Day (After Finishing M.DGermain 02/18/2019 Tablets The Sample Pack) Taltz 160 mg ([facility], 09/04/2018 - 80mg/ml injections) at week 0, M.DGermain 12/19/2018 Solution followed by 80 mg at Auto-Inject weeks 2, 4, 6, 8, 10, and 12, then 80 mg every 4 weeks. Medications Administered in Office Medication SIG Qnty Indications Ordering Provider Date Celestone 3 mg and 3mg Ender Campbell MD 11/18/2018 Injection Celestone 3 mg and 3mg Ender Campbell MD 02/18/2018 Injection Celestone 3 mg and 3mg Ender Campbell MD 09/20/2017 Injection Celestone 3 mg and 3mg Ender Campbell MD 08/09/2017 Injection Celestone 3 mg and 3mg Ender Campbell MD 03/29/2017 Injection Influenza Virus Vaccine Unknown 03/22/2014 Injection Immunizations Description No Information Available Vital Signs Date Vital Result Comment 02/18/2019 11:27am Height 64 inches 5'4" Weight 266.38 lb Heart Rate 85 /min BP Systolic Sitting 126 mmHg BP Diastolic Sitting 94 mmHg Pain Level 3 O2 % BldC Oximetry 96 % BMI (Body Mass Index) 45.7 kg/m2 12/30/2018 8:20am Height 64 inches 5'4" Weight 372.00 lb Heart Rate 82 /min BP Systolic 130 mmHg BP Diastolic 96 mmHg Respiratory Rate 18 /min Pain Level 5 BMI (Body Mass Index) 63.8 kg/m2 Results Test Date Facility Test Result H/L Range Note Laboratory test 12/31/2018 [facility] Erythrocyte Sed 30 mm/Hr High 0-[address] [place] [address] [phone] C Reactive Protein 36.74 mg/L High <8.01 CBC Auto 12/31/2018 [facility] White Blood 12.6 10^3/uL High 3.5-10.[address] [place] [address] [phone] Red Blood Count 5.07 10^6/uL High 3.70-4.87 Hemoglobin 14.4 g/dL Normal 12.0-16.0 Hematocrit 44 % Normal 35-47 Mean Corpuscular Volume 87 fL Normal 80-97 Mean Corpuscular Hemoglobin 28 pg Normal 27-31 Mean Corpuscular HGB Conc 33 g/dL Normal 31-36 Red Cell Distribution Width 15 % Normal 10-15 Platelet Count 308 10^3/uL Normal 150-450 Mean Platelet Volume 7.8 fL Normal 7.4-10.4 Abs Neutrophils 8.9 10^3/uL High 1.5-7.7 Abs Lymphocytes 2.6 10^3/uL Normal 1.0-4.8 Abs Monocytes 0.9 10^3/uL High 0-0.8 Abs Eosinophils 0.1 10^3/uL Normal 0-0.6 Abs Basophils 0.1 10^3/uL Normal 0-0.2 Abs Nucleated RBC 0.0 10^3/uL Granulocyte % 70.8 % Lymphocyte % 20.5 % Monocyte % 6.8 % Eosinophil % 1.0 % Basophil % 0.9 % Nucleated Red Blood Cells % 0.1 Comp Metabolic 12/31/2018 [facility] Sodium 137 mmol/L Normal 135-[address] [place] [address] [phone] Potassium 3.5 mmol/L Normal 3.5-5.0 Chloride 100 mmol/L Low 101-111 Co2 Carbon Dioxide 23 mmol/L Normal 22-32 Anion Gap 14 mmol/L High 2-11 Glucose 111 mg/dL High 70-100 Blood Urea Nitrogen 19 mg/dL Normal 6-24 Creatinine 0.92 mg/dL Normal 0.51-0.95 BUN/Creatinine Ratio 20.7 High 8-20 Calcium 10.2 mg/dL Normal 8.6-10.3 Total Protein 7.6 g/dL Normal 6.4-8.9 Albumin 4.3 g/dL Normal 3.2-5.2 Globulin 3.3 g/dL Normal 2-4 Albumin/Globulin Ratio 1.3 Normal 1-3 Total Bilirubin 0.70 mg/dL Normal 0.2-1.0 Alkaline Phosphatase 83 U/L Normal 34-104 Alt 20 U/L Normal 7-52 Ast 16 U/L Normal 13-39 Egfr Non- 64.6 >60 Egfr 78.2 >60 1 Connective Tissue 10/08/2018 [facility] Anti-Nuclear Antibody 0.3 U [address] [place] [address] [phone] Cyclic Citrullinated Peptide 83.3 U Abnormal 3 Interpretation See Comment 4 Laboratory test 10/08/2018 [facility] Rheumatoid < 10 IU/mL Normal <15 [address] [place] [address] [phone] Uric Acid 5.9 mg/dL Normal 2.3-6.6 6 CBC Auto 10/08/2018 [facility] White Blood 9.4 10^3/uL Normal 3.5-10.[address] [place] [address] [phone] Red Blood Count 4.90 10^6/uL High 3.70-4.87 Hemoglobin 13.5 g/dL Normal 12.0-16.0 Hematocrit 42 % High 33-41 Mean Corpuscular Volume 85 fL Normal 80-97 Mean Corpuscular Hemoglobin 28 pg Normal 27-31 Mean Corpuscular HGB Conc 33 g/dL Normal 31-36 Red Cell Distribution Width 15 % Normal 10.5-15 Platelet Count 299 10^3/uL Normal 150-450 Mean Platelet Volume 7.8 fL Normal 7.4-10.4 Abs Neutrophils 6.8 10^3/uL Normal 1.5-7.7 Abs Lymphocytes 2.0 10^3/uL Normal 1.0-4.8 Abs Monocytes 0.4 10^3/uL Normal 0-0.8 Abs Eosinophils 0.1 10^3/uL Normal 0-0.6 Abs Basophils 0 10^3/uL Normal 0-0.2 Abs Nucleated RBC 0 10^3/uL Granulocyte % 72.5 % Lymphocyte % 21.5 % Monocyte % 4.2 % Eosinophil % 1.5 % Basophil % 0.3 % Nucleated Red Blood Cells % 0.1 Comp Metabolic 10/08/2018 [facility] Sodium 135 mmol/L Normal 135-145 Panel [address] [place] [address] [phone] Potassium 3.6 mmol/L Normal 3.5-5.0 Chloride 100 mmol/L Low 101-111 Co2 Carbon Dioxide 24 mmol/L Normal 22-32 Anion Gap 11 mmol/L Normal 2-11 Glucose 217 mg/dL High 70-100 Blood Urea Nitrogen 20 mg/dL Normal 6-24 Creatinine 0.72 mg/dL Normal 0.51-0.95 BUN/Creatinine Ratio 27.8 High 8-20 Calcium 9.2 mg/dL Normal 8.6-10.3 Total Protein 7.1 g/dL Normal 6.4-8.9 Albumin 3.8 g/dL Normal 3.2-5.2 Globulin 3.3 g/dL Normal 2-4 Albumin/Globulin Ratio 1.2 Normal 1-3 Total Bilirubin 0.40 mg/dL Normal 0.2-1.0 Alkaline Phosphatase 83 U/L Normal 34-104 Alt 13 U/L Normal 7-52 Ast 12 U/L Low 13-39 Egfr Non- 85.7 >60 Egfr 103.7 >60 7 Laboratory test 10/08/2018 [facility] Ferritin 115.5 ng/mL Normal 11-307 8 finding [address] [place] [address] [phone] Smooth Muscle Antibody Negative Negative 9 Hepatitis 10/08/2018 [facility] Hepatitis A Nonreactive Nonreactive [address] [place] [address] [phone] Hepatitis B Core AB Igm Nonreactive Nonreactive 11 Hepatitis B Surface Ag Nonreactive Nonreactive 12 Hepatitis C Antibody 10/08/2018 [facility] HCV Index 0.1 Index [address] [place] [address] [phone] Hepatitis C Antibody Nonreactive Nonreactive Hla B27 10/08/2018 [facility] Hla B27 Negative [address] [place] [address] [phone] Hla B27 Inter See Comment 14 1 Because ethnic data is not always [...] 5 Kidney failure <15 (or dialysis) 2 REFERENCE VALUE <=1.0 (Negative) 3 Interpretation: Strong Positive (>=60.0) REFERENCE VALUE <20.0 (Negative) 4 RESULT: Compatible with rheumatoid arthritis. Test Performed by: [facility] [address] [place] [address] 5 Please check labs 2 days before follow up 6 Please check labs 2 days before follow up 7 Because ethnic data is not always readily [...] 15-29 5 Kidney failure <15 (or dialysis) 8 Please check labs 2 days before follow up 9 ADDITIONAL INFORMATION This test was developed and its performance characteristics determined by [facility] in a manner consistent with CLIA requirements. This test has not been cleared or approved by the U.S. Food and Drug Administration. Test Performed by: [facility] [address] [place] [address] 10 Please check labs 2 days before follow up 11 Please check labs 2 days before follow up 12 Please check labs 2 days before follow up 13 REFERENCE VALUE Not Applicable 14 RESULT: HLA-B27 antigen was not detected. ADDITIONAL INFORMATION Method: Flow Cytometry Performing Laboratory CLIA# [id number] Test Performed by: [facility] - [address] [address] Procedures Date Code Description Status 11/18/2018 59242 Inject/Drain Joint/Bursa Small W/O US Completed Medical Devices Description No Information Available Encounters Type Date Location Provider Dx Diagnosis Office Visit 02/18/2019 Rheumatology Mason Campos, L40.50 Arthropathic 11:20a Services [facility] Rouse psoriasis, unspecified Z79.899 Other nursing home (current) drug therapy K76.0 Fatty (change of) liver, not elsewhere classified M25.572 Pain in left ankle and joints of left foot Office Visit 12/30/2018 9:15a Orthopedic Ender M18.12 Unil primary Services [facility] osteoarth of first C.M.A. carpometacarp joint, l hand M65.312 Trigger thumb, left thumb Office Visit 12/19/2018 Rheumatology Mason L40.50 Arthropathic 11:40a [facility] Campos M.D. 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 carpometacarp joint, l hand M65.312 Trigger thumb, left thumb Office Visit 10/10/2018 Rheumatology Mason L40.50 Arthropathic 10:40a [facility] Campos M.D. psoriasis, unspecified Z79.899 Other nursing home (current) drug therapy K76.0 Fatty (change of) liver, not elsewhere classified M67.833 Other specified disorders of tendon, right wrist Office Visit 09/04/2018 Rheumatology Mason L40.50 Arthropathic 9:00a [facility] Campos M.D. psoriasis, unspecified Z79.899 Other nursing home (current) drug therapy M06.4 Inflammatory polyarthropathy L40.9 Psoriasis, unspecified K76.0 Fatty (change of) liver, not elsewhere classified Assessments Date Code Description Provider 02/18/2019 L40.50 Arthropathic psoriasis, unspecified Mason Campos M.D. 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 02/18/2019 K76.0 Fatty (change of) liver, not elsewhere Mason Campos M.D. classified 02/18/2019 M25.572 Pain in left ankle and joints of left foot Mason Campos M.D. 12/30/2018 M18.12 Unilateral primary osteoarthritis of first Ender Campbell MD carpometacarpal j 12/30/2018 M65.312 Trigger thumb, left thumb Ender Campbell MD 12/19/2018 L40.50 Arthropathic psoriasis, unspecified Mason Campos M.D. 12/19/2018 Z79.899 Other nursing home (current) drug therapy Mason Campos M.D. 12/19/2018 H66.91 Otitis media, unspecified, right ear Mason Campos M.D. 12/19/2018 K76.0 Fatty (change of) liver, not elsewhere Mason Campos M.D. classified 11/18/2018 M18.12 Unilateral primary osteoarthritis of first Ender Campbell MD carpometacarpal j 11/18/2018 M65.312 Trigger thumb, left thumb Ender Campbell MD 10/10/2018 L40.50 Arthropathic psoriasis, unspecified Mason Campos M.D. 10/10/2018 Z79.899 Other nursing home (current) drug therapy Mason Campos M.D. 10/10/2018 K76.0 Fatty (change of) liver, not elsewhere Mason Campos M.D. classified 10/10/2018 M67.833 Other specified disorders of tendon, right Mason Campos M.D. wrist 09/04/2018 L40.50 Arthropathic psoriasis, unspecified Mason Campos M.D. 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 09/04/2018 M06.4 Inflammatory polyarthropathy Mason Campos M.D. 09/04/2018 L40.9 Psoriasis, unspecified Mason Capmos M.D. 09/04/2018 K76.0 Fatty (change of) liver, not elsewhere Mason Campos M.D. classified Plan of Treatment Future Appointment(s):04/20/2019 9:40 am - Mason Campos M.D. at [facility]ology [facility]04/21/2019 9:45 am - Ender Campbell MD at [facility].02/18/2019 - Mason Campos M.D.L40.50 Arthropathic psoriasis, ofqhezonspeS18.899 Other ferry terminal supervisor (current) drug therapyComments:Ustekinumab ( Stelara) is a biologic medication used to lower inflammation and help patients with moderate to severe plaque psoriasis, psoriatic arthritis, and moderate to severe Tara??s Disease. This medicine is prescribed after non-responding to other medications. It is taken as a home injection. Ustekinumab blocks inflammation proteins called IL-12 and IL-23. Ustekinumab is a biologic medication and can take several months to start working.Ustekinumab lowers your immune system and can lead to infections. Ustekinumab rarely can lead to nervous system condition called reversible posterior leukoencephalopathy syndrome (RPLS), which is reversible if the medication is stopped. Some people can get a reaction at the injection site, such as itching, swelling, and redness.K76.0 Fatty (change of) liver, not elsewhere classifiedComments: Minimize hepatotoxic drugs we will therefore not increase MTX Nonalcoholic steatohepatitis (MATTSON) chad condition that causes inflammation and accumulation of fat and scar tissue in the liver. Although a similar condition can occur in people who abuse alcohol, MATTSON occurs in those who drink little to no alcohol. The exact cause of MATTSON is unknown. However, it is seen more frequently in people with certain medical conditions such as diabetes, obesity, and insulin resistance.Losing weight can help to reduce levels of liver enzymes and insulin , and can improve your quality of life. Weight loss should be gradual (for example 1 to 2 lbs per week) since rapid weight loss has been associated with worsening of liver disease. A healthcare provider or hand clipper can provide an individualized weight loss plan. I also recommend daily exercise and avoidance of ksdwkjlL30.572 Pain in left ankle and joints of left footFollow up: Follow up in 2 months or sooner if needed Functional Status Description No Information Available Mental Status Description No Information Available Referrals Description No Information Available
--- NOTE | 2019-02-25 19:26 | ED ---
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 Patient patient concerned about exposure to STDs. Denies any other symptoms, pain or injury. Denies medical history. - History of Current Complaint Chief Complaint: EDLacSutureRecheck Stated Complaint: LT ARM LAC PER PT Time Seen by Provider: 02/25/19 18:28 Onset/Duration: Started Hours Ago PMH/Surg Hx/FS Hx/Imm Hx Endocrine/Hematology History: Reports: Hx Diabetes - early signs Denies: Hx Thyroid Disease Cardiovascular History: Reports: Hx Hypercholesterolemia, Hx Hypertension - ON MEDICATION FOR Denies: Hx Pacemaker/ICD Respiratory History: Reports: Hx Asthma - PRN INHALER, Hx Sleep Apnea - current CPAP user Denies: Hx Chronic Obstructive Pulmonary Disease (COPD) GI History: Reports: Other GI Disorders - Obesity Denies: Hx Ulcer History: Reports: Hx Kidney Stones - LAST 6-7 YRS AGO Musculoskeletal History: Reports: Hx Arthritis - LEFT HAND, Hx Rheumatoid Arthritis Sensory History: Reports: Hx Contacts or Glasses - READING GLASSES, Other Sensory Impairments - Psoriasis Denies: Hx Hearing Aid Opthamlomology History: Reports: Hx Contacts or Glasses - READING GLASSES, Other Sensory Impairments - Psoriasis Neurological History: Reports: Hx Migraine - 2 TIMES PER MONTH- TREATS WITH REST AND IBUPROFEN, Other Neuro Impairments/Disorders - Sleep disorder Psychiatric History: Reports: Hx Depression - HX OF IN THE PAST Denies: Hx Panic Disorder - Surgical History Surgery Procedure, Year, and Place: Cholecystectomy, PARTIAL HYSTERECTOMY, Lithotripsy- left; X 3; Polyp removed from uterus prior to hysterectomy;. Lt WRIST/ ARM WITH A PLATE Dr. Castorena Hx Anesthesia Reactions: No Infectious Disease History: No Infectious Disease History: Denies: Hx Clostridium Difficile, Hx Hepatitis, Hx Human Immunodeficiency Virus (HIV), Hx of Known/Suspected MRSA, Hx Shingles, Hx Tuberculosis, Hx Known/ Suspected VRE, Hx Known/Suspected VRSA, History Other Infectious Disease, Traveled Outside the [place] in Last 30 Days - Family History Known Family History: Positive: None, Unknown, Hypertension - parents Negative: Diabetes - Social History Alcohol Use: None Hx Substance Use: No Substance Use Type: Reports: None Hx Tobacco Use: No Smoking Status (MU): Never Smoked Tobacco Review of Systems Constitutional: Negative Eyes: Negative ENT: Negative Cardiovascular: Negative Respiratory: Negative Gastrointestinal: Negative Genitourinary: Negative Musculoskeletal: Negative Skin: Other Neurological: Negative Psychological: Normal All Other Systems Reviewed And Are Negative: Yes Physical Exam - Summary Physical Exam Summary: 15 cmx 2cm line of abrasion along medial left forearm with areas where skin appears broken. No other injuries noted. Triage Information Reviewed: Yes Vital Signs On Initial Exam: Initial Vitals Temp Pulse Resp BP Pulse Ox 98.7 F 110 20 133/94 95 02/25/19 18:13 02/25/19 18:13 02/25/19 18:13 02/25/19 18:13 02/25/19 18:13 Vital Signs Reviewed: Yes Appearance: Positive: Well-Appearing Skin: Positive: Warm Head/Face: Positive: Normal Head/Face Inspection Eyes: Positive: Normal Neck: Positive: Supple Respiratory/Lung Sounds: Positive: Clear to Auscultation Cardiovascular: Positive: Normal Abdomen Description: Positive: Nontender Musculoskeletal: Positive: Normal Neurological: Positive: Normal Psychiatric: Positive: Normal AVPU Assessment: Alert - Higgins Coma Scale Best Eye Response: 4 - Spontaneous Best Motor Response: 6 - Obeys Commands Best Verbal Response: 5 - Oriented Coma Scale Total: 15 Diagnostics - Vital Signs Vital Signs Temp Pulse Resp BP Pulse Ox 02/25/19 18:13 98.7 F 110 20 133/94 95 - Laboratory Lab Statement: Any lab studies that have been ordered have been reviewed, and results considered in the medical decision making process. 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 Patient patient concerned about exposure to STDs. Denies any other symptoms, pain or injury. Denies medical history. Vital signs within normal limits. Due to patient's repeatedly expressed concern, patient given Rocephin 250 mg IM, azithromycin 1000 mg by mouth 1. Rx for acyclovir. Risk of HIV exposure low given lack of bodily fluid exchange from autistic child. - Diagnoses Provider Diagnoses: Abrasion, Possible exposure to STD Discharge ED - Sign-Out/Discharge Documenting (check all that apply): Patient Departure Patient Received Moderate/Deep Sedation with Procedure: No - Discharge Plan Condition: Stable Disposition: HOME Prescriptions: Acyclovir* [Zovirax 400 MG TAB*] 400 mg PO TID 7 Days #21 tab Patient Education Materials: Sexually Transmitted Diseases (ED) Referrals: Robina Chauhan MD [Primary Care Provider] - Additional Instructions: Take acyclovir as directed. Return to the ED for any new or worsening symptoms. - Billing Disposition and Condition Condition: STABLE Disposition: Home - Attestation Statements Provider Attestation: I was available for consult. This patient was seen by the [facility]. The patient was not presented to, seen by, or examined by me. Remi Guerrero MD
[2019-02-25] MEDS: Azithromycin TAB* 250 MG PO ONE (19:46)
[2019-02-25] MEDS: Lidocaine 1% MPF ** 5 ML VIAL IM ONE (19:47)
[2019-02-25] MEDS: cefTRIAXone VIAL(*) 250 MG VIAL IM ONE (19:47)
[2019-02-25] MEDS: Acyclovir* 400 MG TAB PO ONE (19:55)
[2019-02-25 19:56] VITALS: BP 138/90
== END 2019-02-25 19:55 | disposition home or self-care (01) ==
LOC: ED 18:11
DX: S50.812A Abrasion of left forearm, initial encounter (principal); Z20.2 Contact with and (suspected) exposure to infections with a predominantly sexual mode of transmission; Y04.2XXA Assault by strike against or bumped into by another person, initial encounter; Y92.811 Bus as the place of occurrence of the external cause; Y99.0 Civilian activity done for income or pay; E11.9 Type 2 diabetes mellitus without complications; E78.00 Pure hypercholesterolemia, unspecified; I10 Essential (primary) hypertension; J45.909 Unspecified asthma, uncomplicated; F32.9 Major depressive disorder, single episode, unspecified; Z90.49 Acquired absence of other specified parts of digestive tract; Z90.710 Acquired absence of both cervix and uterus; Z79.84 Long term (current) use of oral hypoglycemic drugs; Z79.899 Other long term (current) drug therapy; Z88.1 Allergy status to other antibiotic agents; Z88.5 Allergy status to narcotic agent; Z88.8 Allergy status to other drugs, medicaments and biological substances
CPT/HCPCS: 96372; 99282; A9270-GY; J0696

== ENCOUNTER 2019-08-12 09:04 | Emergency (ER) | payer BC ==
[2019-08-12 09:32] LABS: Influenza B Molecular POSITIVE (Negative)
--- NOTE | 2019-08-12 09:47 | ED ---
Influenza-Like Illness - HPI Summary HPI Summary: This pt is a 49 Y/O F presenting to [facility] with a CC of influenza-like symptoms that began this weekend on 08/08/2019. She states that it began as a cold 2 weeks ago. She has myalgia, rhinorrhea, non-productive cough, CP due to the cough, and a tooth ache that is rated a 10/10 in severity. She denies any fevers , chills, headaches, and sore throats. She states that she has a PMHx of DM, HTN, and asthma. She denies any aggravating or alleviating symptoms. - History of Current Complaint Chief Complaint: EDFluSymptoms Time Seen by Provider: 08/12/19 09:32 Hx Obtained From: Patient Onset/Duration: Sudden Onset, Lasting Weeks - 2, Worse Since - 08/08/2019 Severity: Severe Associated Signs & Symptoms: Negative - fevers, chills, headaches, and sore throats, Myalgia, Cough - non-productive - Allergy/Home Medications Allergies/Adverse Reactions: Allergies Allergy/AdvReac Type Severity Reaction Status Date / Time amitriptyline Allergy TIGHTNESS Verified 08/12/19 09:10 TO CHEST AND SOB clindamycin Allergy TIGHTNESS Verified 08/12/19 09:10 TO CHEST AND SOB codeine Allergy TIGHTNESS Verified 08/12/19 09:10 TO CHEST AND SOB, ALSO SWELLIN GOF TONGUE erythromycin base Allergy TIGHTNESS Verified 08/12/19 09:10 TO CHEST AND SOB Home Medications: Home Medications Simponi Aria (NF) 2 mg INFUSION SEE INSTRUCTIONS 08/12/19 [History Confirmed ] PMH/Surg Hx/FS Hx/Imm Hx Previously Healthy: Yes Endocrine/Hematology History: Reports: Hx Diabetes - early signs Denies: Hx Thyroid Disease Cardiovascular History: Reports: Hx Hypercholesterolemia, Hx Hypertension - ON MEDICATION FOR Denies: Hx Pacemaker/ICD Respiratory History: Reports: Hx Asthma - PRN INHALER, Hx Sleep Apnea - current CPAP user Denies: Hx Chronic Obstructive Pulmonary Disease (COPD) GI History: Reports: Other GI Disorders - Obesity Denies: Hx Ulcer History: Reports: Hx Kidney Stones - LAST 6-7 YRS AGO Musculoskeletal History: Reports: Hx Arthritis - LEFT HAND, Hx Rheumatoid Arthritis Sensory History: Reports: Hx Contacts or Glasses - READING GLASSES, Other Sensory Impairments - Psoriasis Denies: Hx Hearing Aid Opthamlomology History: Reports: Hx Contacts or Glasses - READING GLASSES, Other Sensory Impairments - Psoriasis Neurological History: Reports: Hx Migraine - 2 TIMES PER MONTH- TREATS WITH REST AND IBUPROFEN, Other Neuro Impairments/Disorders - Sleep disorder Psychiatric History: Reports: Hx Depression - HX OF IN THE PAST Denies: Hx Panic Disorder - Cancer History Hx Chemotherapy: No Hx Radiation Therapy: No - Surgical History Surgical History: Yes Surgery Procedure, Year, and Place: Cholecystectomy, PARTIAL HYSTERECTOMY, Lithotripsy- left; X 3; Polyp removed from uterus prior to hysterectomy;. Lt WRIST/ ARM WITH A PLATE Dr. Castorena Hx Anesthesia Reactions: No - Immunization History Immunizations Up to Date: Yes Infectious Disease History: Yes Infectious Disease History: Denies: Hx Clostridium Difficile, Hx Hepatitis, Hx Human Immunodeficiency Virus (HIV), Hx of Known/Suspected MRSA, Hx Shingles, Hx Tuberculosis, Hx Known/ Suspected VRE, Hx Known/Suspected VRSA, History Other Infectious Disease, Traveled Outside the in Last 30 Days - Family History Known Family History: Positive: Hypertension - parents Negative: Diabetes - Social History Occupation: Employed Full-time Lives: Alone Alcohol Use: None Hx Substance Use: No Substance Use Type: Reports: None Hx Tobacco Use: No Smoking Status (MU): Never Smoked Tobacco Review of Systems Negative: Fever, Chills Positive: Dental Pain, Other - rhinorrhea. Negative: Sore Throat Positive: Chest Pain Positive: Cough Negative: Headache All Other Systems Reviewed And Are Negative: Yes Physical Exam - Summary Physical Exam Summary: Constitutional: Well-developed, Well-nourished, Alert. (-) Distressed Skin: Warm, Dry HENT: Normocephalic; Atraumatic, dental sapna of the L central incisor. Has poor dentition. No obvious abscess. No trismus. Eyes: Conjunctiva normal Neck: Musculoskeletal ROM normal neck. (-) JVD, (-) Stridor, (-) Nuchal rigidity Cardio: Rhythm regular, rate normal, Heart sounds normal; Intact distal pulses; Radial pulses are 2+ and symmetric. (-) Murmur Pulmonary/Chest wall: Effort normal. (-) Respiratory distress, (-) Wheezes, (-) Rales Abd: Soft, (-) tenderness, (-) Distension, (-) Guarding, (-) Rebound Musculoskeletal: (-) Edema Neuro: Alert, Oriented x3 Psych: Mood and affect Normal Triage Information Reviewed: Yes Vital Signs On Initial Exam: Initial Vitals Temp Pulse Resp BP Pulse Ox 98.3 F 80 18 156/104 96 08/12/19 09:06 08/12/19 09:06 08/12/19 09:06 08/12/19 09:06 08/12/19 09:06 Vital Signs Reviewed: Yes Procedures - Sedation Patient Received Moderate/Deep Sedation with Procedure: No Diagnostics - Vital Signs Vital Signs Temp Pulse Resp BP Pulse Ox 08/12/19 09:06 98.3 F 80 18 156/104 96 - Laboratory Lab Results: Lab Results 08/12/19 Range/Units 09:12 Influenza A (Rapid) Not Reportable Influenza B (Rapid) Positive H (Negative) Lab Statement: Any lab studies that have been ordered have been reviewed, and results considered in the medical decision making process. Flu Symptom Course/Dx - Course Course Of Treatment: 49 y/o F presented with flulike symptoms. Flu B+. Patient well appearing, with stable vitals. Out of window for tamiflu. Patient does not have increased work of breathing, productive cough to suggest pneumonia. No headache, neck pain or nuchal rigidity. Tolerating by mouth. Plan for discharge w symptomatic control and will return for worsening symptoms. Regarding dental pain, has multiple caries, given penicillin can f/u w dentist. - Diagnoses Provider Diagnoses: Influenza, Dental cavity Discharge ED - Sign-Out/Discharge Documenting (check all that apply): Patient Departure - discharge - Discharge Plan Condition: Stable Disposition: HOME Prescriptions: Ibuprofen TAB* [Motrin TAB* 800 MG] 800 mg PO TID PRN 10 Days #30 tab PRN Reason: Pain - Moderate Penicillin VK 500 MG TAB(NF) [Penicillin VK 500 mg Tab] 500 mg PO QID 7 Days # 28 tab Patient Education Materials: Influenza (ED), Toothache (ED) Referrals: Robina Chauhan MD [Primary Care Provider] - Additional Instructions: You were seen in the emergency department for Flu like symptoms, your flu test was positive. Please take motrin for pain, drink lots of fluids. Take penicillin for your dental abscess, follow up with your dentist. If any studies were not completed at the time of discharge you will be called with the relevant results. Please follow up with your primary care doctor in next 2-3 days and return to emergency department for trouble breathing, fevers greater than 1 week, trouble eating, inability to open your mouth, worsening or concerning symptoms. It was a pleasure taking care of you today. - Billing Disposition and Condition Condition: STABLE Disposition: Home - Attestation Statements Document Initiated by Naima: Yes Documenting Scribe: Riley Nieves Provider For Whom Naima is Documenting (Include Credential): Christo Briones MD Scribe Attestation: I, Riley Nieves, scribed for Christo Briones MD on 08/12/19 at 0957. Scribe Documentation Reviewed: Yes Provider Attestation: The documentation as recorded by the Riley boggs accurately reflects the service I personally performed and the decisions made by me, Christo Briones MD Status of Scribe Document: Viewed
[2019-08-12 10:04] VITALS: BP 135/79
== END 2019-08-12 10:02 | disposition home or self-care (01) ==
LOC: ED 09:04
DX: J11.1 Influenza due to unidentified influenza virus with other respiratory manifestations (principal); K02.9 Dental caries, unspecified; E11.9 Type 2 diabetes mellitus without complications; I10 Essential (primary) hypertension; J45.909 Unspecified asthma, uncomplicated; E78.00 Pure hypercholesterolemia, unspecified; Z90.49 Acquired absence of other specified parts of digestive tract; Z90.711 Acquired absence of uterus with remaining cervical stump; Z87.442 Personal history of urinary calculi; Z79.899 Other long term (current) drug therapy; Z88.1 Allergy status to other antibiotic agents; Z88.5 Allergy status to narcotic agent
CPT/HCPCS: 99282

== ENCOUNTER 2019-08-28 17:38 | Emergency (ER) | payer BC ==
--- OUTSIDE RECORDS SUMMARY | 2019-08-28 17:43 | XMS REPORT | Continuity of Care Document ---
:1970 External Reference #:[id number] Author Name Mihir Wild Address [address] [place] [address] Care Team Providers Name Role Phone Robina Chauhan M.D. - Family Medicine Care Team Information Child Neurologist [phone] Problems Active Problems Provider Date Psoriasis Robina Chauhan M.D. Onset: 10/13/2018 Steatosis of liver Robina Chauhan M.D. Onset: 10/13/2018 Essential hypertension JAVIER Kessler Onset: 10/13/2018 Obesity Robina Chauhan M.D. Onset: 10/14/2018 Psoriasis with arthropathy Robina Chauhan M.D. Onset: 10/14/2018 Type 2 diabetes mellitus Robina Chauhan M.D. Onset: 01/01/2019 Social History Type Date Description Comments Sex Unknown Tobacco Use Start: Unknown Never Smoked Cigarettes ETOH Use Denies alcohol use Tobacco Use Start: Unknown Patient has never smoked Smoking Status Reviewed: 08/17/19 Patient has never smoked Exercise Type/Frequency Exercises sporadically Exercise Type/Frequency Walks daily 30 min a day Allergies, Adverse Reactions, Alerts Active Allergies Reaction Severity Comments Date Amitriptyline 11/21/2016 Clindamycin 11/21/2016 Erythromycin 11/21/2016 Tylenol With Codiene 11/21/2016 Oranges 11/21/2016 Tomatoes 11/21/2016 peppers 11/21/2016 Herbs 11/21/2016 Medications Active Medications SIG Qnty Indications Ordering Date Provider Work Note seen here today, Marleny 08/17/2019 medically excused Mihir Mosqueda from work through 08/19/2019 , will return 08/20/2019 Benzonatate 1 by mouth three 30caps R05 Marleny 08/17/2019 200mg times a day for Mihir Mosqueda Capsules cough Metformin HCL Take 1 Tablet By 90tabs Robina Chauhan, 01/06/2019 500mg Mouth Once M.D. 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 Tablets Folic Acid 1 by mouth every Unknown 1mg day Tablets Simponi Aria Unknown 50mg/4ML Solution Immunizations CPT Code Status Date Vaccine Lot # [id number] Given 10/14/2018 Tdap Tetanus, W Pertussis [id number] Given 03/08/2017 Influenza Vac, Quadrivalent, Slit Virus, Im Vital Signs Date Vital Result Comment 08/17/2019 4:18pm BP Systolic 138 mmHg BP Diastolic 88 mmHg Heart Rate 72 /min Body Temperature 97.9 F Respiratory Rate 18 /min Weight 287.00 lb 10/14/2018 1:45pm BP Systolic 110 mmHg BP Diastolic 76 mmHg Heart Rate 100 /min Body Temperature 98.4 F Respiratory Rate 16 /min Height 63.5 inches 5'3.50" Weight 278.00 lb BMI (Body Mass Index) 48.5 kg/m2 Results Test Acquired Date Facility Test Result H/L Range Note Influenza A & B 08/12/2019 [facility] [place] Flu AB Disclaimer (SEE NOTE) 1 Request Influenza B Molecular POSITIVE Abnormal Negative 2 Laboratory test 07/15/2019 [facility] [place] Erythrocyte Sed Rate 17 mm/Hr Normal 0-29 finding CBC Auto Diff 07/15/2019 [facility] [place] White Blood Count 8.6 10^3/uL Normal 3.5- 10.8 Red Blood Count 4.83 10^6/uL Normal 3.70-4.87 Hemoglobin 14.2 g/dL Normal 12.0-16.0 Hematocrit 43 % Normal 35-47 Mean Corpuscular Volume 89 fL Normal 80-97 Mean Corpuscular Hemoglobin 30 pg Normal 27-31 Mean Corpuscular HGB Conc 33 g/dL Normal 31-36 Red Cell Distribution Width 16 % High 10-15 Platelet Count 269 10^3/uL Normal 150-450 Mean Platelet Volume 8.2 fL Normal 7.4-10.4 Abs Neutrophils 5.0 10^3/uL Normal 1.5-7.7 Abs Lymphocytes 2.8 10^3/uL Normal 1.0-4.8 Abs Monocytes 0.5 10^3/uL Normal 0-0.8 Abs Eosinophils 0.2 10^3/uL Normal 0-0.6 Abs Basophils 0.1 10^3/uL Normal 0-0.2 Abs Nucleated RBC 0.0 10^3/uL Granulocyte % 58.5 % Lymphocyte % 32.7 % Monocyte % 6.2 % Eosinophil % 1.9 % Basophil % 0.7 % Nucleated Red Blood Cells % 0.1 1 Suboptimal collection technique may reduce sensitivity of test. Refer to the [facility] Test Catalog for collection information: [email or web address] As with all diagnostic procedures, the laboratory results obtained should be used in conjunction with other clinical information available to the physician, including confirmation by another method, as applicable. 2 [employer] Professional: [id number] Procedures Date Code Description Status 10/30/2018 [id number] Mammogram Completed 10/14/2018 [id number] Colonoscopy Completed Medical Devices Description No Information Available Encounters Description No Information Available Assessments Date Code Description Provider 08/17/2019 J10.1 Influenza due to other identified influenza Mihir Wild virus with other respiratory manifestations 08/17/2019 R05 Cough Mihir Wild Plan of Treatment 08/17/2019 - Teresa Wild-CJ10.1 Influenza due to other identified influenza virus with other respiratory [id number] CoughNew Medication: Benzonatate 200 mg - 1 by mouth three times a day for coughFollow up:Followup: . (Follow up)AllComments:Medication Management Patient Understands medications she's taking? Yes No Are there Barriers to Adherence? Yes No Has the patient been asked about herbal supplements and therapies, and OTC meds? Yes No Care Plan1. Patient has been queried about patient's goals/ preferences and functional/lifestyle goals at relevant visits. If relevant, describe: na2. Treatment goals as explained to the patient: abovesx resolution 3. Are there barriers to meeting treatment goals? Yes No If Yes, please describe:4. Self-Management goals as described to the patient: Yes No expect continued sx improvement \\tessalon for cough f/u if not continued improvement over next few weeks or if sx worsen Functional Status Description No Information Available Mental Status Description No Information Available Referrals Description No Information Available
[2019-08-28 17:45] VITALS: BP 141/81
--- NOTE | 2019-08-28 17:47 | UC ---
Dental HPI - HPI Summary HPI Summary: 49 yo female presents with dental pain. She tells me that today she began having left upper tooth pain and swelling. She was seen for this same issue in the ED about 3 weeks ago and was placed on PCN VK and pt states this improved it , but it came right back. She has not called her dentist. She is eating and drinking well. Has been taking tylenol with little relief. Denies fever. - History of Current Complaint Chief Complaint: UCDentalProblem Stated Complaint: DENTAL PAIN Time Seen by Provider: 08/28/19 17:46 Hx Obtained From: Patient Hx Last Menstrual Period: HYSTERECTOMY Onset/Duration: Sudden Onset Severity: Severe Pain Intensity: 10 Pain Scale Used: 0-10 Numeric - Allergies/Home Medications Allergies/Adverse Reactions: Allergies Allergy/AdvReac Type Severity Reaction Status Date / Time amitriptyline Allergy TIGHTNESS Verified 08/28/19 17:45 TO CHEST AND SOB clindamycin Allergy TIGHTNESS Verified 08/28/19 17:45 TO CHEST AND SOB codeine Allergy TIGHTNESS Verified 08/28/19 17:45 TO CHEST AND SOB, ALSO SWELLIN GOF TONGUE erythromycin base Allergy TIGHTNESS Verified 08/28/19 17:45 TO CHEST AND SOB Home Medications: Home Medications Ibuprofen TAB* [Advil TAB*] 400 mg PO BID PRN 06/20/17 [History Confirmed ] Lisinopril TAB* [Prinivil TAB*] 5 mg PO DAILY 08/20/18 [History Confirmed ] Triamterene/HCTZ 37.5-25 MG* [Dyazide CAP*] 1 cap PO DAILY 08/20/18 [History Confirmed 08/28/19] Folic Acid TAB* [Folvite TAB*] 1 mg PO DAILY WITH MEAL 11/02/18 [History Confirmed 08/28/19] Methotrexate TAB* 15 mg PO WEEKLY 11/02/18 [History Confirmed 08/28/19] Acetaminophen TAB* [Tylenol TAB*] 500 mg PO BEDTIME PRN 11/13/18 [History Confirmed 08/28/19] metFORMIN* [Glucophage 500 MG TAB *] 500 mg PO DAILY 02/11/19 [History Confirmed 08/28/19] Ibuprofen TAB* [Motrin TAB* 800 MG] 800 mg PO TID PRN 10 Days #30 tab 08/12/19 [ Rx Confirmed 08/28/19] Simponi Aria (NF) 2 mg INFUSION SEE INSTRUCTIONS 08/12/19 [History Confirmed 12/11] Amoxicillin PO (*) [Amoxicillin 500 MG CAP*] 500 mg PO Q12H #14 cap 08/28/19 [Rx ] Chlorhexidine MW 0.12% 473ML* [Peridex Mouth Wash 0.12%] 15 ml MT BID #1 bottle 08/28/19 [Rx] Lidocaine 2% VISCOUS* [Xylocaine 2% Viscous*] 15 ml SWISH SPIT Q6H #250 ml 08/27 [Rx] PMH/Surg Hx/FS Hx/Imm Hx Endocrine History: Diabetes Cardiovascular History: Hypertension - Surgical History Surgical History: Yes Surgery Procedure, Year, and Place: Cholecystectomy, PARTIAL HYSTERECTOMY, Lithotripsy- left; X 3; Polyp removed from uterus prior to hysterectomy;. Lt WRIST/ ARM WITH A PLATE Dr. Castorena - Family History Known Family History: Positive: Hypertension - parents Negative: Diabetes - Social History Lives: With Family Alcohol Use: None Substance Use Type: None Smoking Status (MU): Never Smoked Tobacco Review of Systems All Other Systems Reviewed And Are Negative: No Constitutional: Positive: Negative Skin: Positive: Negative Eyes: Positive: Negative ENT: Positive: Dental Pain Respiratory: Positive: Negative Cardiovascular: Positive: Negative Neurological/Mental Status: Positive: Negative Psychological: Positive: Negative Physical Exam - Summary Physical Exam Summary: GENERAL: NAD. WDWN. No pain distress. SKIN: No rashes, sores, lesions, or open wounds. HEENT: Head: AT/NC Nose: Nasal mucosa pink and moist. NTTP maxillary and frontal sinus. Throat: Posterior oropharynx without exudates, erythema, or tonsillar enlargement. Uvula midline. NECK: Supple. Nontender. No lymphadenopathy. NEURO: Alert. PSYCH: Age appropriate behavior. Triage Information Reviewed: Yes Vital Signs: Initial Vital Signs Temp 99.2 F 08/28/19 17:41 Pulse 79 08/28/19 17:41 Resp 20 08/28/19 17:41 BP 141/81 08/28/19 17:41 Pulse Ox 100 08/28/19 17:41 Vital Signs Reviewed: Yes Dental: Positive: Percussion Tenderness @ - Tooth #11, Gross Decay/Caries @ - throughout, Dental Fracture @ - Tooth #11, Cellulitis @ - Tooth #11. Negative: Abscess @, Cervical Lymphadenopathy, Bleeding Dental Complaint Course/Dx - Course Course Of Treatment: Tooth #11 fracture and cellulitis. Interaction with amoxicillin and methotrexate, but she has adverse reactions or allergies to all other medications that would provide her dental abscess/ cellulitis treatment. Thus will rx for amoxicillin and have her f/u with her dentist as soon as possible. Lidocaine viscous for pain. - Differential Dx/Diagnosis Provider Diagnosis: Pain, dental Discharge ED - Sign-Out/Discharge Documenting (check all that apply): Patient Departure All imaging exams completed and their final reports reviewed: No Studies - Discharge Plan Condition: Stable Disposition: HOME Prescriptions: Amoxicillin PO (*) [Amoxicillin 500 MG CAP*] 500 mg PO Q12H #14 cap Chlorhexidine MW 0.12% 473ML* [Peridex Mouth Wash 0.12%] 15 ml MT BID #1 bottle Lidocaine 2% VISCOUS* [Xylocaine 2% Viscous*] 15 ml SWISH SPIT Q6H #250 ml Patient Education Materials: Toothache (ED) Referrals: Robina Chauhan MD [Primary Care Provider] - Additional Instructions: Please follow up with your dentist - Billing Disposition and Condition Condition: STABLE Disposition: Home
== END 2019-08-28 18:02 | disposition home or self-care (01) ==
LOC: UCEAST 17:38
DX: K08.89 Other specified disorders of teeth and supporting structures (principal); E11.9 Type 2 diabetes mellitus without complications; I10 Essential (primary) hypertension; Z88.1 Allergy status to other antibiotic agents; Z88.8 Allergy status to other drugs, medicaments and biological substances; Z88.5 Allergy status to narcotic agent; Z79.84 Long term (current) use of oral hypoglycemic drugs; Z79.899 Other long term (current) drug therapy
CPT/HCPCS: 99212; G0463